=== PATIENT | female | born 1970 | race Caucasian/White ===

== ENCOUNTER 2016-11-30 18:39 | Emergency (ER) | payer SELFPAY ==
[2016-11-30 19:55] VITALS: O2SAT 98
--- NOTE | 2016-11-30 21:09 | ED.PDOC ---
History of Present Illness - General Chief Complaint: Respiratory Problem Stated Complaint: coughing up blood Time Seen by Provider: 11/30/16 21:02 Source: patient Exam Limitations: no limitations - History of Present Illness Initial Comments: 1 DAY HX OF HEMOPTYSIS. HAS BEEN ON CIPRO FOR BRONCHITIS Timing/Duration: other - 1 DAY Severity: mild Improving Factors: nothing Associated Symptoms: cough, fever/chills - TMAX 101 Allergies/Adverse Reactions: Allergies Penicillin G Adverse Reaction (Verified 11/30/16 19:46) Home Medications: Ambulatory Orders Doxycycline (Monohydrate) [Doxycycline Monohydrate] 100 mg PO BID #20 cap Estradiol 2 mg PO DAILY #30 tab 11/30/16 Review of Systems - Review of Systems Constitutional: States: fever. Denies: chills EENTM: Denies: eye pain, ear pain, throat pain Respiratory: States: cough, short of breath. Denies: wheezing Cardiology: Denies: chest pain, syncope Gastrointestinal/Abdominal: Denies: abdominal pain, nausea, vomiting Genitourinary: States: no symptoms reported Musculoskeletal: States: no symptoms reported Skin: States: no symptoms reported Neurological: States: no symptoms reported Endocrine: States: no symptoms reported Hematologic/Lymphatic: States: no symptoms reported Past Medical History (General) - Patient Medical History Hx Congestive Heart Failure: Yes - CHF IN THE HOSPITAL TWICE FOR THIS Hx Hypertension: Yes Surgical History: Hysterectomy - Vaccination History Hx Tetanus, Diphtheria Vaccination: No Hx Influenza Vaccination: No Hx Pneumococcal Vaccination: No Immunizations Up to Date: No - Social History Hx Tobacco Use: No Hx Alcohol Use: No Hx Substance Use: No Hx Substance Use Treatment: No Hx Depression: Yes - Female History Patient is a Female of Child Bearing Age (10 -59 yrs old): Yes Patient : No Family Medical History - Family History Mother Family History: Unknown Living Status: Unknown Physical Exam - Physical Exam General Appearance: Alert, No apparent distress Eye Exam: bilateral normal Ears, Nose, Throat: normal ENT inspection, normal pharynx Neck: supple Respiratory: lungs clear, no respiratory distress, other - SLIGHT BRONCHIAL BREATHSOUNDS RLL. Cardiovascular/Chest: regular rate, rhythm, no edema, no murmur Gastrointestinal/Abdominal: non tender, soft, no organomegaly Back Exam: normal inspection, no CVA tenderness Extremity: normal range of motion, normal inspection Neurologic: normal mood/affect Skin Exam: normal color Lymphatic: no adenopathy Departure - Departure Clinical Impression: Hemoptysis, Pneumonitis Time of Disposition: 22:08 Disposition: Discharge to Home or Self Care Condition: Good Departure Forms: ED Discharge - Pt. Copy, Patient Portal Self Enrollment Instructions: DI for Hemoptysis, Acute Bronchitis Referrals: Roland Mancera III, MD [Primary Care Provider] - 1-2 Weeks Prescriptions: Doxycycline (Monohydrate) [Doxycycline Monohydrate] 100 mg PO BID #20 cap Estradiol 2 mg PO DAILY #30 tab Home Medications: Ambulatory Orders Doxycycline (Monohydrate) [Doxycycline Monohydrate] 100 mg PO BID #20 cap Estradiol 2 mg PO DAILY #30 tab 11/30/16
[2016-11-30] MEDS ORDERED: cefTRIAXone SODIUM 1 GM VIAL IM ONE (22:01)
[2016-11-30] MEDS ORDERED: LIDOCAINE 1% 10 ML VIAL INJ ONE (22:14)
[2016-11-30 22:47] VITALS: BP 133/66; TEMP 99.1
--- NOTE | 2016-12-05 13:45 | RAD ---
EXAM DESCRIPTION: Chest,2 Views CLINICAL HISTORY: HEMOPTYSIS COMPARISON: September 13, 2011 FINDINGS: Cardiac silhouette is within normal limits. There is no focal parenchymal or pleural disease. There is no acute osseous process visualized. IMPRESSION: No evidence of acute cardiopulmonary disease. Electronically signed by: Alexi Sanchez MD 11/30/2016 9:47 PM TIPPING MACHINE OPERATOR AUTOMATIC
--- NOTE | 2016-12-10 00:16 | RAD ---
EXAM DESCRIPTION: Chest,2 Views CLINICAL HISTORY: HEMOPTYSIS COMPARISON: September 13, 2011 FINDINGS: Cardiac silhouette is within normal limits. There is no focal parenchymal or pleural disease. There is no acute osseous process visualized. IMPRESSION: No evidence of acute cardiopulmonary disease. Electronically signed by: Alexi Sanchez MD 11/30/2016 9:47 PM CASH APPLICATIONS ASSOCIATE
== END 2016-11-30 22:47 | disposition home or self-care (01) ==
LOC: ER 18:39
DX: J18.9 Pneumonia, unspecified organism (principal); R04.2 Hemoptysis; I11.0 Hypertensive heart disease with heart failure; I50.9 Heart failure, unspecified; Z88.0 Allergy status to penicillin
CPT/HCPCS: 71020; J0696

== ENCOUNTER 2016-12-16 01:00 | Inpatient (IN) | payer SELFPAY ==
[2016-12-16] MEDS ORDERED: MORPHINE SULFATE INJ 10 MG/ML VIAL ONE (01:24)
[2016-12-16] MEDS ORDERED: MORPHINE SULFATE INJ 10 MG/ML VIAL IV ONE (01:24)
[2016-12-16] MEDS ORDERED: NITROGLYCERIN 0.4 MG 25 EA TAB SL ONE (01:27)
[2016-12-16] MEDS ORDERED: ONDANSETRON INJ 4 MG/2 ML VIAL IV ONE (01:27)
[2016-12-16] MEDS ORDERED: ONDANSETRON INJ 4 MG/2 ML VIAL ONE (01:27)
[2016-12-16] MEDS ORDERED: ASPIRIN (CHEWABLE) 81 MG TAB PO ONE (01:28)
--- NOTE | 2016-12-16 01:37 | ED.PDOC ---
History of Present Illness - General Chief Complaint: Chest Pain/PA Stated Complaint: chest discomfort, anxoius Time Seen by Provider: 12/16/16 01:23 Source: patient, RN notes reviewed, Vital Signs reviewed Exam Limitations: no limitations - History of Present Illness Initial Comments: Patient is a 46 y/o female who comes into the ED with severe pain. She states it is in her chest, however she points to her epigastric area and says it radiates to her chest and her upper abdomen. Her abdomen is swollen to her. She has had nausea since yesterday and vomiting today. The pain is severe, crampy/sharp. She denies any fever. Timing/Duration: 24 hours Severity: severe Improving Factors: nothing Worsening Factors: movement Associated Symptoms: loss of appetite, nausea/vomiting Allergies/Adverse Reactions: Allergies Penicillin G Adverse Reaction (Verified 11/30/16 19:46) Home Medications: Ambulatory Orders Doxycycline (Monohydrate) [Doxycycline Monohydrate] 100 mg PO BID #20 cap Estradiol 2 mg PO DAILY #30 tab 11/30/16 Review of Systems - Review of Systems Constitutional: States: no symptoms reported. Denies: chills, fever EENTM: States: no symptoms reported Respiratory: States: short of breath Cardiology: States: chest pain Gastrointestinal/Abdominal: States: abdominal pain, nausea, vomiting Genitourinary: States: no symptoms reported Musculoskeletal: States: no symptoms reported Skin: States: no symptoms reported Neurological: States: no symptoms reported Endocrine: States: no symptoms reported Hematologic/Lymphatic: States: no symptoms reported All other Systems: Reviewed and Negative Past Medical History (General) - Patient Medical History Hx Stroke: No Hx Dementia: No Hx Asthma: No Hx Cardiac Disorders: No Hx Congestive Heart Failure: Yes - CHF IN THE HOSPITAL TWICE FOR THIS Hx Hypertension: Yes Hx Thyroid Disease: No Hx Diabetes: No Hx of HIV: No Hx MRSA: No Surgical History: Hysterectomy - Vaccination History Hx Tetanus, Diphtheria Vaccination: Yes Hx Influenza Vaccination: No Hx Pneumococcal Vaccination: No Immunizations Up to Date: Yes - Social History Hx Tobacco Use: No Hx Alcohol Use: No Hx Substance Use: No Hx Substance Use Treatment: No Hx Depression: Yes - Female History Patient : No Family Medical History - Family History Mother Family History: Unknown Living Status: Unknown Physical Exam - Physical Exam General Appearance: Agitated, Obvious distress Ears, Nose, Throat: hearing grossly normal, normal ENT inspection Respiratory: lungs clear, normal breath sounds, no respiratory distress, no accessory muscle use Cardiovascular/Chest: normal peripheral pulses, regular rate, rhythm, no edema, no gallop, no murmur Gastrointestinal/Abdominal: abnormal bowel sounds - decreased, distended, guarding, tenderness - primarily in the epigastric area Extremity: normal range of motion, no pedal edema, no calf tenderness Neurologic: alert, oriented x 3 Skin Exam: normal color, warm/dry Progress - Results/Orders Results/Orders: 12/16/16 12/16/16 12/16/16 01:16 01:18 02:00 Temperature 97.9 F Pulse Rate 96 H Pulse Rate [ 96 H 101 H Left radial] Pulse Rate [ 96 H 96 H right radial] Respiratory 22 22 16 Rate Blood Pressure 116/79 95/54 [Right Arm] O2 Sat by Pulse 95 87 L Oximetry 12/16/16 12/16/16 02:18 03:00 Temperature Pulse Rate Pulse Rate [ 86 Left radial] Pulse Rate [ right radial] Respiratory 16 Rate Blood Pressure 115/86 [Right Arm] O2 Sat by Pulse 98 96 Oximetry 12/16/16 01:23 IV Care:Saline Lock per Protoc QSHIFT Telemetry .ONCE Sodium Chloride 0.9% (Flush) [Saline Flush Syringe] 10 ml IV PRN PRN EKG Stat Pulse Ox Stat 12/16/16 02:27 Hold Metformin x 48Hrs [id number] Laboratory Results WBC 9.6 K/mm3 (4.8-10.8) 12/16/16 01:35 RBC 3.73 M/mm3 (4.20-5.40) L 12/16/16 01:35 Hgb 11.5 gm/dL (12.0-16.0) L 12/16/16 01:35 Hct 33.1 % (36.0-47.0) L 12/16/16 01:35 MCV 88.6 fl (81.0-99.0) 12/16/16 01:35 MCH 30.8 pg (27.0-31.0) 12/16/16 01:35 MCHC 34.7 g/dL (33.0-37.0) 12/16/16 01:35 RDW 12.6 % (11.5-14.5) 12/16/16 01:35 Plt Count 308 K/mm3 (130-400) 12/16/16 01:35 MPV 8.3 fl (7.40-10.4) 12/16/16 01:35 Absolute Neuts (auto) 5.20 K/uL (1.8-6.8) 12/16/16 01:35 Absolute Lymphs (auto) 3.30 K/uL (1.0-3.4) 12/16/16 01:35 Absolute Monos (auto) 0.70 K/uL (0.2-0.8) 12/16/16 01:35 Absolute Eos (auto) 0.30 K/uL (0.0-0.4) 12/16/16 01:35 Absolute Basos (auto) 0.10 K/uL (0.0-0.1) 12/16/16 01:35 Neutrophils % 54.0 % (42.0-78.0) 12/16/16 01:35 Lymphocytes % 34.6 % (20.0-50.0) 12/16/16 01:35 Monocytes % 6.9 % (2.0-9.0) 12/16/16 01:35 Eosinophils % 3.6 % (1.0-5.0) 12/16/16 01:35 Basophils % 0.9 % (0.0-2.0) 12/16/16 01:35 PT 11.9 SECONDS (9.4-12.5) 12/16/16 01:35 INR 1.050 12/16/16 01:35 PTT (SP) 37.0 SECONDS (25.1-36.5) H 12/16/16 01:35 D-Dimer, Quantitative < 230 ng/mL (0-230) 12/16/16 01:35 Sodium 137 mmol/L (135-145) 12/16/16 01:35 Potassium 4.7 mmol/L (3.6-5.0) 12/16/16 01:35 Chloride 99 mmol/L (101-111) L 12/16/16 01:35 Carbon Dioxide 30 mmol/L (21-31) 12/16/16 01:35 Anion Gap 12.7 (12-18) 12/16/16 01:35 BUN 9 mg/dL (7-18) 12/16/16 01:35 Creatinine 0.62 mg/dL (0.6-1.3) 12/16/16 01:35 BUN/Creatinine Ratio 14.5 (10-20) 12/16/16 01:35 Random Glucose 124 mg/dL (70-105) H 12/16/16 01:35 Serum Osmolality 273.9 mOsm/L (275-295) L 12/16/16 01:35 Calcium 8.9 mg/dL (8.4-10.2) 12/16/16 01:35 Magnesium 1.9 mg/dL (1.8-2.5) 12/16/16 01:35 Total Bilirubin < 0.2 mg/dL (0.2-1.0) L 12/16/16 01:35 Direct Bilirubin < 0.1 mg/dL (0-0.2) 12/16/16 01:35 Indirect Bilirubin 0.1 mg/dL (0.2-0.8) L 12/16/16 01:35 AST 24 IU/L (10-42) 12/16/16 01:35 ALT 23 IU/L (10-60) 12/16/16 01:35 Alkaline Phosphatase 69 IU/L (42-121) 12/16/16 01:35 Creatine Kinase 12 IU/L (26-140) L 12/16/16 01:35 CK-MB (CK-2) 0.7 ng/mL (0.0-4.4) 12/16/16 01:35 CK-MB (CK-2) % Not Reportable 12/16/16 01:35 Troponin I < 0.02 ng/mL (0.01-0.05) 12/16/16 01:35 B-Natriuretic Peptide 13.8 pg/ml (0-100) 12/16/16 01:35 Serum Total Protein 6.9 gm/dL (6.4-8.2) 12/16/16 01:35 Albumin 3.2 g/dl (3.2-5.5) 12/16/16 01:35 Lipase 46 U/L (22-51) 12/16/16 01:35 Gastric Fluid pH 5.0-7.0 12/16/16 02:40 Gastric Occult Blood Negative 12/16/16 02:40 - EKG/XRAY/CT EKG: Sinus, nonspecific ST T wave Chg Comments: NML axis, T wave inv. V1/V2, Prolonged QT, ABN EKG CT: ABD/Pelvis CT Ordered: Yes CT Interpretation Call Back: Yes - Early appe CT Interpretation Call Back Date: 12/16/16 CT Interpretation Call Back Time: 03:10 Departure - Departure Clinical Impression: Appendicitis Qualifiers: Appendicitis type: acute appendicitis Acute appendicitis type: with generalized peritonitis Qualifier Code: (K35.2) Acute appendicitis with generalized peritonitis Time of Disposition: 03:31 Disposition: Admit Patient Condition: Fair Home Medications: Ambulatory Orders Doxycycline (Monohydrate) [Doxycycline Monohydrate] 100 mg PO BID #20 cap Estradiol 2 mg PO DAILY #30 tab 11/30/16 Decision To Admit - Decistion To Admit Decision to Admit Reason: Admit from ER Decision to Admit Date: 12/16/16 Decision to Admit Time: 03:20
[2016-12-16] MEDS: SODIUM CHLORIDE 0.9% (FLUSH) 10 ML SYG IV PRN ×4 (01:41→22:03)
[2016-12-16] MEDS ORDERED: HYDROmorphone HCL INJ 2 MG/ML VIAL IV ONE (02:09)
[2016-12-16] MEDS ORDERED: PROMETHAZINE HCL INJ 25 MG in SODIUM CHLORIDE 0.9% 50ML 50 ML IVPB ONE (02:15)
[2016-12-16] MEDS ORDERED: PROMETHAZINE HCL INJ 25 MG/ML VIAL ONE ×3 (02:17→18:04)
[2016-12-16] MEDS ORDERED: SODIUM CHLORIDE 0.9% 50ML 50 ML ONE ×3 (02:17→18:04)
--- NOTE | 2016-12-16 03:13 | CT ---
EXAM DESCRIPTION: Abdomen/Pelvis w/Contrast 12/16/2016 3:07 AM INTERIOR BLOCK WIRER CLINICAL HISTORY: 46 years, Female, Abdominal pain COMPARISON: [None] TECHNIQUE: Following the administration of intravenous contrast, volumetric CT acquisition was performed through the abdomen and pelvis. Images in the axial and coronal planes were presented for interpretation FINDINGS: The visualized portions of the lung bases are clear. The cardiomediastinal structures are within normal limits. Within the upper abdomen, the liver and spleen are normal in size and morphology. There is diffuse fatty infiltration of the liver which is otherwise unremarkable. The gallbladder is normal in morphology. The intra/extrahepatic biliary tree is normal in appearance. The pancreas and adrenal glands are normal. The kidneys are normal in size bilaterally. The ureters are normal in course and caliber. The stomach and small intestines are within normal limits without evidence of bowel dilation or wall thickening. The distal appendix is dilated measuring up to 9 mm in diameter with fluid-filled lumen best seen on axial image 55 of sequence 2. There are minimal surrounding inflammatory changes. The proximal and mid appendix are normal in appearance. There is no evidence of perforation or abscess formation. The colon is stool filled and unremarkable. Within the pelvis, the bladder and rectum are normal. The uterus and ovaries are surgically absent. There is a ventral abdominal wall postoperative seroma abdomen below the level of the umbilicus in the distribution of a section scar. There are no pathologically enlarged inguinal, retroperitoneal, portacaval, or mesenteric lymph nodes. The soft tissue structures of the abdominal wall are normal. The visualized osseous structures are within normal limits for the patient's age. The abdominal aorta and its primary branches are normal in course and caliber. Limited evaluation of the venous structures demonstrates no gross abnormalities. IMPRESSION: 1. Early uncomplicated appendicitis of the distal appendix. 2. Fatty liver. 3. Infraumbilical ventral abdominal wall postoperative seroma from prior section. Note: Results discussed with Dr. Thomas of the Emergency Department at 03:12 on December 16, 2016. Electronically signed by: Elton Koo MD 12/16/2016 3:12 AM INTERIOR BLOCK WIRER
--- NOTE | 2016-12-16 03:35 | HP ---
HISTORY OF PRESENT ILLNESS: This 46 year-old white female was admitted to the hospital with worsening abdominal pain for the last 3 days. She was seen in the Emergency Room earlier today and was admitted to the hospital because of CT scan of the abdomen and pelvis showing evidence of an acute appendicitis. Its appearance was in the distal appendix. She presents in the Emergency Room with some chest discomfort pointing to her epigastrium with associated nausea and vomiting noted earlier. Of significance is that she has also had some blood in her stools over the last couple of weeks. She has had treatment with multiple antibiotics for an upper respiratory infection and has had loose stools in the past, and will need to be evaluated for Clostridium infection as well. She has had fainting when she was walking. Even when she is sitting and lying down she has been confused according to her companions. Question of hallucination has been noted. She has had 2 weeks of fever and chills getting better now. She is admitted to the hospital for surgical evaluation and followup as well as starting of antibiotic therapy in an attempt to keep an early distal appendix from getting worse. Please refer to chart. PAST MEDICAL HISTORY: 1. Recurring pneumonias that she received from exposure in small villages in the [facility], etc., through the years. 2. History of hypertension. 3. Asthma. 4. Significant fibromyalgia being followed by a neurologist in [place]. 5. History of gastrointestinal bleeding with rectal bleeding. 6. History of peripheral neuropathy on medications. PAST SURGICAL HISTORY: 1. Total hysterectomy. 2. Breast reduction surgery. 3. History of 3 para 1 with 2 miscarriages. CURRENT MEDICATIONS: Please refer to nurses' notes for a complete list of verified medications taken at home. ALLERGIES: PENICILLIN. FAMILY HISTORY: Positive for cancer, heart disease, strokes and diabetes. SOCIAL HISTORY: She has worked in [employer]. She has never smoked nor does she drink alcoholic beverages. REVIEW OF SYSTEMS: Some fever and chills in the recent 2 weeks. Weight gain has been noted. HEENT: No hearing or vision disturbances, but she has had some noticeable confusion spells with some hallucinations according to family friends and companions. LUNGS: Occasional shortness of breath and cough. CARDIOVASCULAR: No significant palpitations but she does have some chest discomfort in the lower chest and her epigastrium. ABDOMEN: Nausea and vomiting. Some blood in her stools have been noted. Decreased appetite, abdominal pain present. GENITOURINARY: No dysuria. EXTREMITIES: No significant edema. NEUROLOGIC: Some confusion spells and falling has been noted with some headaches. PHYSICAL EXAMINATION: VITAL SIGNS: Afebrile, pulse 96, blood pressure 107/72, pulse oximetry 95% on room air. Weight is 75.2 kilos. GENERAL: The patient is slightly slurring her speech after having some analgesics earlier after her hospital admission. She is able to otherwise contribute to the history fairly well with her sports recruiter also contributing as well. HEENT: Unremarkable. No nystagmus. NECK: Supple. CHEST: Lungs have some diminished breath sounds, otherwise clear. CARDIOVASCULAR: Heart tones are within normal limits with a normal rate. ABDOMEN: Diminished bowel tones. Special tenderness especially noted initially in the epigastrium with some radiation to the left upper quadrant. She also describes self palpation tenderness in the right lower quadrant. She states her abdomen appears to be distended. Even slight percussion tympani in the epigastrium results in some discomfort. Rebound tenderness positive when gently compressed on the left mid flank with no pain until fingers are removed and the patient states a sharp pain localized within the area of the compression which was in the left mid abdomen. No organomegaly evident. Negative psoas. EXTREMITIES: No significant pedal edema. NEUROLOGIC: No focal neurological deficits. The patient is fairly awake though somewhat slurred in her speech possibly from analgesic administration for pain. LABORATORY: White count 9,600 down to 7,800 with 55% neutrophils, platelets normal. INR of 10.5, D-dimer normal. Chemistry showed potassium 4.6, CO2 elevated at 33, BUN 7, creatinine 0.8, glucose 132. Bilirubin 0.3. Liver enzymes otherwise normal. Troponin zero. CK of 12. Beta natriuretic peptide 13.8, albumin 3.2, lipase 46. Gastric blood negative while pH ascitic. Abdominal/pelvic CT scan does reveal evidence of an acute appendicitis of the distal appendix with a fatty liver and a seroma noted in the infraumbilical region postoperative noted prior to section. ASSESSMENT: 1. Acute abdominal pain. 2. Radiographic evidence of a distal early appendicitis with inflammatory changes requiring surgical followup and vigorous treatment with antibiotics and gastrointestinal rest. 3. Chronic pain state with diagnosis of fibromyalgia being followed by the Neurology service with chronic opioid administration. 4. History of irritable bowel syndrome. 5. History of gastrointestinal bleed from the rectum with bright red bleeding. 6. History of recent upper respiratory infection with antibiotic course being given and to have followup of complications of possible Clostridium infection. 7. Evidence of fecal impaction possibly contributing to some of her discomfort. PLAN: The patient is seen in consultation with Dr. Everett, General Surgery. She will continue with gastrointestinal rest. Await ultrasound study later this afternoon to assist with ongoing evaluation. Continue with Flagyl and Levaquin , and closely observe with repeat followup suggested to continue. #[id number] [facility]
[2016-12-16] MEDS ORDERED: HYDROmorphone HCL INJ 2 MG/ML VIAL IV PRN (04:23)
[2016-12-16] MEDS ORDERED: PANTOPRAZOLE SODIUM IV 40 MG VIAL IV SCH (04:30)
[2016-12-16] MEDS ORDERED: SODIUM CHLORIDE 0.9% 10 ML VIAL ONE (04:35)
[2016-12-16] MEDS: DEX 5% W/NACL 0.9% 1000ML 1,000 ML IVS PRN ×2 (04:40→18:20)
[2016-12-16] MEDS: IV SET AND CAP CHANGE INJ INJ SCH (05:06)
[2016-12-16] MEDS: ONDANSETRON INJ 4 MG/2 ML VIAL IV PRN ×2 (07:43→15:14)
[2016-12-16] MEDS ORDERED: levoFLOXacin 500MG IV 100 ML IVPB ONE (10:10)
[2016-12-16] MEDS: HYDROmorphone HCL INJ 2 MG/ML VIAL IV PRN ×4 (10:15→22:04)
[2016-12-16] MEDS: levoFLOXacin 500MG IV 500 MG in PREMIX BAG 1 BAG IVPB SCH (10:16)
[2016-12-16] MEDS ORDERED: BISACODYL SUPPOSITORY 10 MG PR ONE (11:18)
[2016-12-16] MEDS ORDERED: PROMETHAZINE HCL INJ 25 MG in SODIUM CHLORIDE 0.9% 50ML 50 ML IVPB PRN (11:20)
--- NOTE | 2016-12-16 11:34 | RAD ---
PROCEDURE: Chest,2 Views CLINICAL HISTORY: abd pain INDICATION: Same as above COMPARISON: November 30, 2016 TECHNIQUE: PA and and lateral chest radiographs were obtained. FINDINGS: The lung borrero are well inflated. There are no discrete airspace infiltrates, pneumothoraces or pleural effusions. The pulmonary vascularity is normal The cardiomediastinal silhouette is unremarkable for patient's age and sex. IMPRESSION: There is no acute pleural-parenchymal process seen in the imaged lung borrero. Place of interpretation: Teleradiology. Electronically signed by: Lev Cornelius MD 12/16/2016 11:33 AM LUMITE INJECTOR
[2016-12-16] MEDS ORDERED: metroNIDAZOLE IV PREMIX 500MG 100 ML IVPB ONE ×2 (11:39→18:04)
[2016-12-16] MEDS: metroNIDAZOLE IV PREMIX 500MG 500 MG in PREMIX BAG 1 BAG IVPB SCH ×2 (12:28→18:28)
--- NOTE | 2016-12-16 14:59 | CONS ---
DATE OF CONSULTATION: 12/16/16 CHIEF COMPLAINT: Abdominal pain. HISTORY OF PRESENT ILLNESS: The patient is a 46 year-old female who was recovering from hospitalization for a pulmonary difficulty. She was on antibiotics for at least a week. She developed pain in her upper abdomen which radiated to her chest. There was vomiting times one yesterday. There has been no fever or chills. The patient is noted to be crampy in nature. She also states that she has recently had bloody stools that was unusual-smelling. The patient states that it hurts to move. PAST MEDICAL HISTORY: 1. Hypertension. 2. Possible congestive heart failure. 3. Pneumonia. 4. History of irritable bowel syndrome. 5. Fibromyalgia. 6. Depression. PAST SURGICAL HISTORY: 1. Hysterectomy. 2. Normal vaginal delivery. 3. Infectious process complicating an abdominal operation. CURRENT MEDICATIONS: 1. Doxycycline. 2. Estradiol. 3. Gabapentin. 4. Xanax. 5. Lasix. 6. Lorazepam. 7. Lisinopril. 8. Cymbalta. ALLERGIES: PENICILLIN. FAMILY HISTORY: Unremarkable. SOCIAL HISTORY: The patient is single but engaged. She does not smoke or use alcohol. She denies illicit drug use. PHYSICAL EXAMINATION: GENERAL: The patient is awake, alert, cooperative and in mild to moderate distress. HEENT: Sclera are nonicteric. Mucous membranes are moist. NECK: Without adenopathy. CHEST: She has equal breath sounds. ABDOMEN: Soft, distended, diffusely tender with referred tenderness to the right lower quadrant. PELVIC AND RECTAL: Examinations are deferred. EXTREMITIES: Without clubbing, cyanosis or edema. LABORATORY: This morning, white count 7.8 which is down from 9.6 early this morning, 55.7% neutrophils, platelet count 294,000, hemoglobin 11.6. Potassium 4.6, creatinine 0.80, sodium 138. Bilirubin and liver functions are all within normal limits. CK and CK-MB were all normal last night. Gastric occult blood was negative. Coagulation studies: PTT was mildly prolonged at 37, INR of 1.050. CT scan which was read as early appendicitis, uncomplicated fatty liver and an abdominal wall seroma from a previous operation which was years ago. The right colon is completely distended with stool. There is also stool in the transverse and left colon, nothing significant in the rectum. IMPRESSION: 1. Abdominal pain of uncertain etiology. 2. Irritable bowel syndrome with constipation. 3. Depression and anxiety. 4. Rule out Clostridium Difficile colitis. 5. Rule out uncomplicated appendicitis. PLAN: Continue analgesia and antiemetics. Will continue to keep her NPO and hydrate her intravenously. Will give her Dulcolax suppository and obtain an ultrasound of the appendix and gallbladder. Will follow the patient with you and agree with the Christy and Kaevh. #[id number] [facility]
[2016-12-16] MEDS: PROMETHAZINE HCL INJ 12.5 MG in SODIUM CHLORIDE 0.9% 50ML 50 ML IVPB PRN (18:11)
--- NOTE | 2016-12-16 19:42 | US ---
EXAM DESCRIPTION: Abdomen,Complete CLINICAL HISTORY: rt sided abdm pain r/o COMPARISON: None. FINDINGS: Visualized portions of the aorta, and pancreas are within normal limits. The echogenicity of the liver is increased compatible with fatty infiltration. Spleen is of homogeneous echotexture. The kidneys demonstrate no hydronephrosis. The right kidney measured 9.3 x 4.3 x 4.6 cm. The left kidney measures 8.8 x 6.3 x 5.9 cm. There are no gallstones, gallbladder wall thickening or pericholecystic fluid collection. The common bile duct measures 5.2 mm and is within normal limits. There is no free fluid in the abdomen. Images obtained of the right lower quadrant failed to visualize the appendix. IMPRESSION: No acute abnormalities. Images obtained of the right lower quadrant failed to visualize the appendix. Electronically signed by: Alexi Sanchez MD 12/16/2016 7:41 PM CYLINDER INSPECTOR AND TESTER
[2016-12-17] MEDS ORDERED: PROMETHAZINE HCL INJ 25 MG/ML VIAL ONE ×5 (00:26→18:27)
[2016-12-17] MEDS ORDERED: SODIUM CHLORIDE 0.9% 50ML 50 ML ONE ×4 (00:27→18:27)
[2016-12-17] MEDS: HYDROmorphone HCL INJ 2 MG/ML VIAL IV PRN ×8 (00:52→23:07)
[2016-12-17] MEDS: SODIUM CHLORIDE 0.9% (FLUSH) 10 ML SYG IV PRN ×6 (00:52→23:06)
[2016-12-17] MEDS: PROMETHAZINE HCL INJ 12.5 MG in SODIUM CHLORIDE 0.9% 50ML 50 ML IVPB PRN ×4 (00:53→18:38)
[2016-12-17] MEDS ORDERED: metroNIDAZOLE IV PREMIX 500MG 100 ML IVPB ONE ×3 (02:54→20:08)
[2016-12-17] MEDS: metroNIDAZOLE IV PREMIX 500MG 500 MG in PREMIX BAG 1 BAG IVPB SCH ×3 (03:00→20:12)
[2016-12-17] MEDS ORDERED: PANTOPRAZOLE SODIUM IV 40 MG VIAL ONE (05:27)
[2016-12-17] MEDS: PANTOPRAZOLE SODIUM IV 40 MG VIAL IV SCH (06:25)
--- NOTE | 2016-12-17 07:05 | RAD ---
EXAM DESCRIPTION: Abdomen Flat Upright CLINICAL HISTORY: 46 years Female, abd pain COMPARISON: None. FINDINGS: There is no free subdiaphragmatic gas or intra-abdominal air-fluid level. There are a few gas-filled small bowel loops in the left midabdomen which are not dilated. There is a small to moderate amount of stool and gas scattered throughout the colon. No suspicious intra-abdominal calcification or mass. No concerning bone lesion. IMPRESSION: Several nondilated gas-filled small bowel loops in the left midabdomen, nonspecific. The possibilities of focal ileus or enteritis should be considered. No obstruction, pneumoperitoneum or other acute intra-abdominal abnormality. Electronically signed by: Efrain Salmon MD 12/17/2016 7:05 AM CABLE STRANDER
[2016-12-17] MEDS: ONDANSETRON INJ 4 MG/2 ML VIAL IV PRN ×2 (07:43→11:58)
[2016-12-17] MEDS ORDERED: levoFLOXacin 500MG IV 100 ML IVPB ONE (09:28)
[2016-12-17] MEDS: levoFLOXacin 500MG IV 500 MG in PREMIX BAG 1 BAG IVPB SCH (10:05)
[2016-12-17] MEDS: DEX 5% W/NACL 0.9% 1000ML 1,000 ML IVS PRN (10:14)
[2016-12-17] MEDS ORDERED: MAGNESIUM HYDROXIDE 30 ML UD PO ONE (10:32)
[2016-12-17] MEDS ORDERED: MAGNESIUM HYDROXIDE 30 ML UD ONE (11:51)
[2016-12-17] MEDS: DULoxetine HCL 30 MG CAP PO SCH ×2 (11:52→20:48)
[2016-12-17] MEDS: ALPRAZolam 0.5 MG TAB PO SCH ×2 (11:52→20:45)
[2016-12-17] MEDS: SODIUM CHLORIDE 0.9% (FLUSH) 10 ML SYG IV SCH ×2 (11:52→20:43)
[2016-12-17] MEDS: ALBUTEROL SULFATE 2.5 MG/3 ML VIAL NEB SCH ×3 (13:45→20:18)
--- NOTE | 2016-12-17 14:03 | PN ---
DATE: 12/17/16 SUBJECTIVE: The patient in many ways appears to be better today. She is more conversant. She is still complaining of tightness in her breathing and will be started on some bronchodilators. She has not been active and is especially encouraged to increase activity today which will help bowel tone activity also to breathe deeply and to increase fluid intake. She is started on clear liquids. OBJECTIVE: VITAL SIGNS: Afebrile. Blood pressure 112/60. Pulse oximetry 95%. LUNGS: Some end-expiratory wheezing noted. She is not a smoker. HEART: Regular. ABDOMEN: Diminished bowel tones, though present. bottle blowing machine tender primarily in the epigastric region with some abdominal distention and tympany present. Dr. Everett continues to assist with ongoing conservative treatment. ASSESSMENT: 1. Acute abdominal pain. 2. Significant fecal stasis and fecal impaction possibly contributing to the pain. 3. Radiographic evidence on CT abdomen and pelvis showing distal appendicitis. We will continue with Flagyl and Levaquin and see if conservative treatment will be remedial in approaching the underlying pathology. 4. Chronic pain state with diagnosis of fibromyalgia being followed by the Neurology service with chronic opioid administration. 5. History of irritable bowel syndrome. 6. History of gastrointestinal bleed from the rectum with bright red bleeding in the past recently. 7. History of recent upper respiratory infection with antibiotic course with no evidence of Clostridium infection at this time. PLAN: Continue with clear liquids and encourage fluid intake. Await results of Milk of Magnesia and enemas for bowel movement effect. Increase activity level and observe closely. Recheck in the morning. Anticipate further outpatient therapy if stable as her diet is slowly advanced. #[id number] [facility]
[2016-12-17] MEDS ORDERED: CHLORHEXIDINE GLUCONATE 4 % 15 ML UD TOP ONE (17:07)
[2016-12-17] MEDS: GABAPENTIN 300 MG CAP PO SCH ×2 (18:00→20:44)
[2016-12-17] MEDS: SODIUM CHLORIDE 0.9% 10 ML VIAL IV PRN (20:42)
[2016-12-18] MEDS: HYDROmorphone HCL INJ 2 MG/ML VIAL IV PRN ×4 (02:36→08:05)
[2016-12-18] MEDS ORDERED: PROMETHAZINE HCL INJ 25 MG/ML VIAL ONE (02:38)
[2016-12-18] MEDS ORDERED: SODIUM CHLORIDE 0.9% 50ML 50 ML ONE (02:38)
[2016-12-18] MEDS: PROMETHAZINE HCL INJ 12.5 MG in SODIUM CHLORIDE 0.9% 50ML 50 ML IVPB PRN (02:50)
[2016-12-18] MEDS ORDERED: metroNIDAZOLE IV PREMIX 500MG 100 ML IVPB ONE ×3 (04:18→18:51)
[2016-12-18] MEDS: metroNIDAZOLE IV PREMIX 500MG 500 MG in PREMIX BAG 1 BAG IVPB SCH ×3 (04:19→18:53)
[2016-12-18] MEDS ORDERED: DEX 5% W/NACL 0.9% 1000ML 0 ML IVS ONE (05:20)
[2016-12-18] MEDS: SODIUM CHLORIDE 0.9% 10 ML VIAL IV PRN ×2 (05:31→06:06)
[2016-12-18] MEDS: SODIUM CHLORIDE 0.9% (FLUSH) 10 ML SYG IV PRN ×4 (05:32→21:39)
[2016-12-18] MEDS: PANTOPRAZOLE SODIUM IV 40 MG VIAL IV SCH (06:06)
[2016-12-18] MEDS ORDERED: levoFLOXacin 500MG IV 100 ML IVPB ONE (08:48)
[2016-12-18] MEDS: ALBUTEROL SULFATE 2.5 MG/3 ML VIAL NEB SCH ×4 (09:10→20:21)
[2016-12-18] MEDS ORDERED: MAGNESIUM HYDROXIDE 30 ML UD PO ONE (09:22)
[2016-12-18] MEDS: GABAPENTIN 300 MG CAP PO SCH ×3 (09:42→20:46)
[2016-12-18] MEDS: LISINOPRIL 5 MG TAB PO SCH (09:42)
[2016-12-18] MEDS: ALPRAZolam 0.5 MG TAB PO SCH ×2 (09:42→20:46)
[2016-12-18] MEDS: DULoxetine HCL 30 MG CAP PO SCH ×2 (09:42→20:46)
[2016-12-18] MEDS: levoFLOXacin 500MG IV 500 MG in PREMIX BAG 1 BAG IVPB SCH (09:43)
[2016-12-18] MEDS: SODIUM CHLORIDE 0.9% (FLUSH) 10 ML SYG IV SCH ×2 (09:43→20:47)
[2016-12-18] MEDS ORDERED: ONDANSETRON ODT 8 MG TAB ONE (10:50)
[2016-12-18] MEDS: HYDROcodone 7.5MG/APAP 325MG 1 EA TAB PO PRN ×2 (12:35→19:43)
--- NOTE | 2016-12-18 20:21 | PN ---
DATE: 12/18/16 SUBJECTIVE: The patient is subjectively having lots of pain. She has been very sedated with slurred speech and still is asking for significant parenteral and antipain medications on as frequent a basis as she possibly can. Her condition is discussed with Dr. Mancera who has seen her in the past, but he is no longer her primary care physician because of her unique behavior in seeking after pain medications. OBJECTIVE: Vitals are stable, afebrile. ABDOMEN: Still complaining of discomfort but most of the discomfort is not in the region of the appendix which is in the right lower quadrant. Bowel tones are present. HEART: Tones are regular. LUNGS: Clear. The patient is very tender to touch most parts of her body. She is complaining of pain all over body. LABORATORY: White count 9,500, hemoglobin is up to 11.1. Chemistry shows sodium 137, potassium 4.3, CO2 is 30, creatinine 0.6, glucose 116, calcium 8.1. Urine culture showed insignificant colony count and Clostridium Difficile is negative on stool exam. Blood cultures are negative. The patient is seen by Dr. Everett who wishes us to continue with increased diet as well as repeat Milk of Magnesia. The patient is encouraged repetitively during the day to get out of bed and walk, and generally she has refused. During the day, her significant analgesic parenteral medicines were withheld because of her insistence upon routine dosings, even though significantly obtunded and clinically apparently not in that significant of distress. The patient's condition was discussed with Dr. Mancera, her registered primary care provider. Dr. Mancera remembers the patient and stated that he no longer is her physician after 3 years ago when she was asked to seek other help from another clinic because of a significant problem with drug seeking behavior and manipulation. ASSESSMENT: 1. Acute abdominal pain. 2. Significant fecal stasis and impaction possibly contributing to symptomatology of constipation. 3. Chronic pain state with diagnosis of fibromyalgia on chronic opioid administration being followed by the neurology service. 4. History of irritable bowel syndrome. 5. History of gastrointestinal bleeding from the rectum with bright red bleeding in the past recently according to the patient. 6. History of recent upper respiratory infection with antibiotic course with no evidence of Clostridium infection at this time. PLAN: The patient has had gastric occult blood as well as stool occult blood, both are negative which is showing no evidence of bleeding as described by the patient. The patient will be increased with diet and again encouraged to increase activity level. She will be reevaluated by Surgery in the morning and as stable, will be able to be discharged home to have followup with one of our local clinics such as [facility]. Close observation necessary. #[id number] [facility]TD[facility]
[2016-12-18] MEDS: ONDANSETRON INJ 4 MG/2 ML VIAL IV PRN (21:39)
[2016-12-19] MEDS ORDERED: metroNIDAZOLE IV PREMIX 500MG 100 ML IVPB ONE (02:23)
[2016-12-19] MEDS: HYDROcodone 7.5MG/APAP 325MG 1 EA TAB PO PRN ×3 (02:24→12:20)
[2016-12-19] MEDS: SODIUM CHLORIDE 0.9% (FLUSH) 10 ML SYG IV PRN ×2 (03:13→05:57)
[2016-12-19] MEDS: ONDANSETRON INJ 4 MG/2 ML VIAL IV PRN ×2 (03:13→07:58)
[2016-12-19] MEDS: metroNIDAZOLE IV PREMIX 500MG 500 MG in PREMIX BAG 1 BAG IVPB SCH ×2 (03:14→13:31)
[2016-12-19] MEDS: IV SET AND CAP CHANGE INJ INJ SCH (03:15)
[2016-12-19] MEDS: PANTOPRAZOLE SODIUM IV 40 MG VIAL IV SCH (05:58)
[2016-12-19] MEDS ORDERED: MAGNESIUM HYDROXIDE 30 ML UD PO ONE (06:00)
[2016-12-19] MEDS ORDERED: levoFLOXacin 500MG IV 100 ML IVPB ONE (07:30)
[2016-12-19] MEDS: ALBUTEROL SULFATE 2.5 MG/3 ML VIAL NEB SCH ×2 (08:47→12:44)
[2016-12-19] MEDS: levoFLOXacin 500MG IV 500 MG in PREMIX BAG 1 BAG IVPB SCH (09:03)
[2016-12-19] MEDS: GABAPENTIN 300 MG CAP PO SCH (09:04)
[2016-12-19] MEDS: LISINOPRIL 5 MG TAB PO SCH (09:04)
[2016-12-19] MEDS: ALPRAZolam 0.5 MG TAB PO SCH (09:04)
[2016-12-19] MEDS: DULoxetine HCL 30 MG CAP PO SCH (09:04)
[2016-12-19] MEDS: SODIUM CHLORIDE 0.9% (FLUSH) 10 ML SYG IV SCH (09:05)
--- NOTE | 2016-12-19 10:06 | RAD ---
1 view abdomen. Indication: abd pain Comparison: December 17, 2016. Impression: Scattered air-fluid levels throughout what is believed to be the colon and can be seen with diarrheal state. No significant dilatation of the small bowel identified. No free air under the diaphragm. Electronically signed by: Jamey Mackey MD 12/19/2016 10:05 AM HEALTH CARE ADMINISTRATOR
[2016-12-19 10:32] VITALS: BP 112/77; TEMP 96.5
--- NOTE | 2016-12-19 13:32 | DS ---
DISCHARGE DIAGNOSIS: 1. Acute abdominal pain, showing clinical improvement. 2. Significant fecal stasis and impaction, contributing to her current abdominal discomfort and possibly aggravated by the chronic opioid pain medication usage. 3. Chronic pain state with diagnosis of chronic fibromyalgia, currently on chronic opioid administration, being followed and supplied by neurology service. 4. History of irritable bowel syndrome. 5. History of gastrointestinal bleeding in the past, yet with current stool guaiacs being negative. 6. History of recent upper respiratory infection with antibiotic course with no evidence of Clostridium infection at this time. HISTORY OF PRESENT ILLNESS: This 46-year-old, white female was admitted to the hospital from the Emergency Room because of worsening abdominal pain. She had some distention, some nausea. In the Emergency Room, she was found to have had some fever recently and had some antibiotics for an upper respiratory infection. She was admitted to the hospital because of the severity and magnitude of her current symptoms. CT of the abdomen and pelvis did show initial evidence of radiographically of possible distal appendicitis and for this reason, surgical consultation was obtained with Dr. Everett who assisted with her ongoing followup and management while in the hospital. LABORATORY: White count remained normal during her hospital stay, also with normal differential. Hemoglobin was stable at 11.1 at discharge. INR 1.05, D- dimer normal. Chemistries showed sugar between 116 and 200 range. Potassium 4.3 on discharge. BUN was low and creatinine 0.6. Calcium 8.1. Liver enzymes normal except total bilirubin did come up low. C-reactive protein slightly elevated at 5.4. Albumin was 3.2, down to 2.9. Lipase normal. Urinalysis was clean. Occult blood on gastric contents and stool occult blood was negative on one determination. Blood cultures, urine culture and C. difficile toxin exam were normal and negative. Abdominal x-ray at the time of discharge reveals nonspecific gas pattern, but no evidence of significant ileus or bowel obstruction noted. HOSPITAL COURSE: The patient was in a lot of discomfort requiring a lot of pain medications until the day before discharge when these medicine were cut back. She became much more alert, cooperative and communicative on less pain medicines. On the day of discharge, the patient was very much willing to continue in anticipation of outpatient followup and management. She is encouraged to be seen by a local clinic such as [facility] in addition to the neurology clinic that cares for her out of [facility]. PLAN: The patient is discharged home to have followup with [facility] later this week. Please refer to medication schedule. In addition to her usual medicines, she will be tried on Cipro 500 mg b.i.d. for 6 days, Zofran 4 mg q.6h. p.r.n. nausea, #12, and MiraLAX [id number] 17 grams with water daily in an effort to prevent significant obstipation. She is going to continue with a good, nutritious diet. Drink plenty of fluids. Avoid constipation. See the neurology clinic for assistance on pain management. Stay active. Return if not improving. #[id number] [facility]
[2016-12-19 15:31] VITALS: O2SAT 96
== END 2016-12-19 15:40 | disposition home or self-care (01) | DRG 392 ==
LOC: ER 01:00 → MS 03:34 → OBSVTOIN 03:34
PROVIDERS: ADMIT Emergency Medicine; ATTEND Emergency Medicine
PROC: BW21YZZ Computerized Tomography (CT Scan) of Abdomen and Pelvis using Other Contrast (ICD-10-PCS; principal; 2016-12-16)
DX: K59.03 Drug induced constipation (principal); K62.5 Hemorrhage of anus and rectum; G89.29 Other chronic pain; M79.7 Fibromyalgia; I10 Essential (primary) hypertension; F32.9 Major depressive disorder, single episode, unspecified; K58.9 Irritable bowel syndrome, unspecified; T40.2X5A Adverse effect of other opioids, initial encounter; J45.909 Unspecified asthma, uncomplicated; I11.0 Hypertensive heart disease with heart failure; I50.9 Heart failure, unspecified; R10.13 Epigastric pain; Z88.0 Allergy status to penicillin; Z79.899 Other long term (current) drug therapy; Z79.891 Long term (current) use of opiate analgesic; Y92.9 Unspecified place or not applicable

== ENCOUNTER → 2017-08-05 | Outpatient (CLI) | payer OTHER | END | disposition home or self-care (01) | LOC: LAB.O 12:53 | PROVIDERS: ATTEND Nurse Practitioner Family | DX: E03.9 Hypothyroidism, unspecified (principal); I10 Essential (primary) hypertension ==

== ENCOUNTER → 2017-09-17 | Outpatient (CLI) | payer OTHER ==
--- NOTE | 2017-09-20 10:52 | MAM ---
EXAM DESCRIPTION: 3D Screening BILATERAL : Digital Mammography. CLINICAL HISTORY: 47 years Female SCREENING. Soft tissue nodule right upper breast near the axilla. First-degree family members with breast cancer. Complete hysterectomy. Currently on HRT. Bilateral breast reduction COMPARISON: 2-D digital screening bilateral study 09/01/2014. No prior reports available. TECHNIQUE: Bilateral CC and MLO projection full-field images, 3-D tomosynthesis digital mammographic technique. Also bilateral synthesized CC/ MLO full-field images. CAD not utilized. FINDINGS: The breast parenchymal density pattern is: Heterogeneously dense breast tissue, which may obscure small masses. No nipple retraction minimal skin thickening inferior bilateral breasts, on MLO projections. Not well seen on the prior study. Bilateral architectural distortion typically associated with breast reduction surgery. Prominent skin folds on the left breast. Small left axillary lymph nodes. No focal, stellate mass or density, focal asymmetry , and no suspicious microcalcifications bilaterally. IMPRESSION: BI-RADS CATEGORY: 0 - INCOMPLETE- Need additional imaging evaluation. FOLLOW-UP: Recall for additional imaging: May be 3-D tomosynthesis left MLO full-field image and follow-up bilateral breast 3-D tomosynthesis LM full-field images. Written communication concerning the IMPRESSION and Follow-up, will be mailed to the patient and referring health care provider. Electronically signed by: Dilshad Mckay MD 09/20/2017 10:51 AM [facility]
== END ==
LOC: MAMMO 16:41
PROVIDERS: ATTEND Nurse Practitioner Family
DX: Z12.31 Encounter for screening mammogram for malignant neoplasm of breast (principal)
CPT/HCPCS: 77063; G0202

== ENCOUNTER 2017-11-11 18:03 | Emergency (ER) | payer OTHER ==
[2017-11-11 18:55] VITALS: O2SAT 97
--- NOTE | 2017-11-11 19:21 | ED.PDOC ---
History of Present Illness - General Chief Complaint: Abdominal Pain Stated Complaint: abdominal pain Time Seen by Provider: 11/11/17 19:07 Information Source: patient Exam Limitations: no limitations Additional Information: C/O ABDOMINAL PAIN AND BLOATING. HAS HAPPENED INTERMITTENTLY FOR SEVERAL MONTHS NOW. TOOK LINZESS X 2 WITHOUT RESULTS. - History of Present Illness Abdominal Pain Onset Location: RLQ, generalized abdomen Pain Radiation: flank Quality: moderate, sharpness Timing/Duration: days - 4 Worsening Factors: nothing Associated Symptoms: other - ABDOMINAL DISTENTION Review of Systems - Review of Systems Constitutional: States: chills EENTM: States: no symptoms reported Respiratory: States: no symptoms reported Cardiology: States: chest pain. Denies: palpitations, syncope Gastrointestinal/Abdominal: States: abdominal pain, diarrhea - BLOODY STOOL X 1 TODAY. Denies: vomiting Genitourinary: Denies: dysuria, hematuria Musculoskeletal: States: no symptoms reported Skin: States: no symptoms reported Neurological: States: no symptoms reported Endocrine: States: no symptoms reported Hematologic/Lymphatic: States: no symptoms reported Past Medical History (General) - Patient Medical History Hx Seizures: No Hx Stroke: No Hx Dementia: No Hx Asthma: No Hx of COPD: No Hx Cardiac Disorders: No Hx Congestive Heart Failure: No Hx Pacemaker: No Hx Hypertension: Yes Hx Thyroid Disease: No Hx Diabetes: No Hx of HIV: No Hx MRSA: No Surgical History: other - HYST, BREAST REDUCTION, ABDOMINAL ABSCESS DRAINED, ABDOMINOPLASTY - Vaccination History Hx Tetanus, Diphtheria Vaccination: Yes Hx Influenza Vaccination: No Hx Pneumococcal Vaccination: No - Social History Hx Tobacco Use: No Hx Alcohol Use: No Hx Substance Use: No Hx Substance Use Treatment: No Hx Depression: No Hx Physical Abuse: No Hx Emotional Abuse: No - Female History Patient is a Female of Child Bearing Age (10 -59 yrs old): No Patient : No Family Medical History - Family History Mother Family History: Unknown Living Status: Unknown Physical Exam - Physical Exam General Appearance: Alert, No apparent distress Eyes, Ears, Nose, Throat Exam: PERRL/EOMI, normal ENT inspection Neck: non-tender, full range of motion, supple Respiratory: lungs clear, normal breath sounds Cardiovascular/Chest: regular rate, rhythm, no murmur Gastrointestinal/Abdominal: soft, no organomegaly, other - BS DIMINISHED, MILD RLQ TTP, NO G/R, MINIMAL TO NO DISTENTION Back Exam: normal inspection, no CVA tenderness Extremity: normal range of motion, non-tender, normal inspection Neurologic: alert, normal mood/affect Skin Exam: normal color Lymphatic: no adenopathy Progress - Progress Progress: 11/11/17 21:15 STILL C/O PAIN, ABN CT WITH LEUKOCYTOSIS, WILL GET CT ABDOMEN 11/12/17 00:05 STILL C/O PAIN. RE-EXAM NON DESCRIPT FULLNESS INFRAUMBILICAL BUT NOT PARTICULARLY TTP, NO INDURATION, NO FLUCTUENCE. DID HAVE DIARRHEA STOOL HERE, NOT MUCH BLOOD IN PHOTO BUT WILL SEND FOR STOOL STUDIES. HAVE D/W DR MCCANN AT [facility], ACCEPTS PT IN TRANSFER FOR FURTHER EVALUATION/[place] - EKG/XRAY/CT XRAY: abdomen - ESTHELA, NO FREE AIR, OCC AIR FLUID LEVELS IN RLQ Departure - Departure Clinical Impression: Abdominal wall abscess Abdominal pain Qualifiers: Abdominal location: lower abdomen, unspecified Qualified Code(s): R10.30 - Lower abdominal pain, unspecified Diarrhea Qualifiers: Diarrhea type: unspecified type Qualified Code(s): R19.7 - Diarrhea, unspecified Hypertension Qualifiers: Hypertension type: essential hypertension Qualified Code(s): I10 - Essential ( primary) hypertension Time of Disposition: 00:42 - DR MCCANN HAS ACCEPTED PT IN TRANSFER Disposition: Transfer to Hospital Condition: Good Departure Forms: ED Discharge - Pt. Copy, Patient Portal Self Enrollment Instructions: DI for Abdominal Pain-Adult Referrals: SINAI BARAHONA IV, THERMOFORMING MACHINE OPERATOR [Primary Care Provider] - 1-2 Weeks Home Medications: Ambulatory Orders Estradiol 2 mg PO DAILY #30 tab 11/30/16 Alprazolam [Xanax] 1 mg PO BID 12/16/16 Duloxetine HCl [Cymbalta] 60 mg PO BID 12/16/16 Gabapentin 300 mg PO TID 12/16/16 Lisinopril 5 mg PO DAILY 12/16/16 HYDROcodone 10MG/APAP 325MG [Zoe 10/325] 1 ea PO Q6HR PRN 12/18/16 Hyoscyamine Sulfate ER [Levbid] 0.125 mg PO TID 12/18/16 Ciprofloxacin [Cipro] 500 mg PO BID #12 tab 12/19/16 Ondansetron Tab [Zofran Tab] 4 mg PO Q6H PRN #12 tab 12/19/16 Polyethylene Glycol 3350 [Miralax] 17 gm PO QAM #30 pckt 12/19/16
[2017-11-11] MEDS ORDERED: KETOROLAC TROMETHAMINE INJ 30 MG/ML VIAL IV ONE (19:26)
[2017-11-11] MEDS ORDERED: SODIUM CHLORIDE 0.9% 1000ML 1,000 ML IVS ONE (19:26)
--- NOTE | 2017-11-11 21:23 | RAD ---
Examination: XR ABDOMEN 2 VIEWS SUPINE ERECT dated 11/11/2017 7:26 PM MIXING MACHINE ATTENDANT History: ABDOMINAL PAIN Comparison: 12/19/2016 Technique: Frontal view of the abdomen and pelvis FINDINGS AND IMPRESSION: No free air. Nonobstructive bowel gas pattern. No suspicious calcifications to suggest renal stones. Electronically signed by: Jake Ayala MD 11/11/2017 9:22 PM MIXING MACHINE ATTENDANT
--- NOTE | 2017-11-11 21:24 | RAD ---
Examination: XR CHEST 1 VIEW dated 11/11/2017 7:26 PM BOOT TURNER History: ABDOMINAL PAIN Comparison: 12/16/2016 Technique: Frontal view of the chest Findings: The lungs are clear bilaterally. No pneumothorax or pleural effusion. The cardiomediastinal silhouette is within normal limits. Impression: No acute disease. Electronically signed by: Jake Ayala MD 11/11/2017 9:23 PM BOOT TURNER
[2017-11-11] MEDS ORDERED: fentaNYL CITRATE INJ 50 MCG/ML AMP IV ONE (21:28)
[2017-11-11] MEDS ORDERED: PROMETHAZINE HCL INJ 25 MG in SODIUM CHLORIDE 0.9% 50ML 50 ML IVPB ONE (21:29)
[2017-11-11] MEDS ORDERED: SODIUM CHLORIDE 0.9% 50ML 50 ML ONE (21:47)
[2017-11-11] MEDS ORDERED: PROMETHAZINE HCL INJ 25 MG/ML VIAL ONE (21:47)
--- NOTE | 2017-11-11 23:27 | CT ---
EXAM: CT abdomen with contrast. INDICATION: Abdominal pain, acute. TECHNIQUE: Contiguous axial CT images of the abdomen and pelvis. Intravenous contrast: Absent. Oral contrast: Present. DLP 559 mGy-cm. This exam was performed according to our departmental dose-optimization program, which includes automated exposure control, adjustment of the mA and/or kV according to patient size and/or use of iterative reconstruction technique. COMPARISON: None. FINDINGS: Lower chest: Partially imaged. Lung bases: Unremarkable. Cardiac apex: Unremarkable. Solid abdominal viscera: Liver: Hypodense Gallbladder: Unremarkable. Pancreas: Unremarkable. Spleen: Unremarkable. Adrenal glands: Unremarkable. Right kidney: No hydronephrosis. Left kidney: No hydronephrosis. Abdominal aorta: Unremarkable. Peritoneal: Free fluid: None. Free air: None. Other: No pathologic sized lymph nodes in the upper abdomen. There is a hypodense collection which is partially visualized within the subcutaneous soft tissues just below the level of the umbilicus which measures up to 5.3 x 1.4 cm. Bowel: Stomach: Unremarkable. Small bowel: There is circumferential thickening particularly along the left upper quadrant. Appendix: Unremarkable. Colon: Visualized portions are unremarkable Bones: Unremarkable. IMPRESSION: Hypodense collection within the ventral subcutaneous soft tissues just below the level of the umbilicus, which may represent an abscess, hematoma, or seroma. Circumferential thickening of the small bowel, which is nonspecific but likely related to an enteritis. Fatty liver. Electronically signed by: Seth Ding MD 11/11/2017 11:26 PM [facility] Workstation: [id number]
[2017-11-12] MEDS ORDERED: MEROPENEM 1 GM in SODIUM CHL 0.9% 50ML MIN-BAG+ 50 ML IVPB ONE (00:29)
[2017-11-12] MEDS ORDERED: MEROPENEM 500 MG VIAL IVPB ONE (00:38)
[2017-11-12] MEDS ORDERED: SODIUM CHLORIDE 0.9% 100ML 100 ML IVPB ONE (00:39)
[2017-11-12 00:49] VITALS: BP 123/81; TEMP 98
[2017-11-12] MEDS ORDERED: fentaNYL CITRATE INJ 50 MCG/ML AMP IV ONE (01:01)
[2017-11-12] MEDS: ONDANSETRON INJ 4 MG/2 ML VIAL IV ONE ×2 (01:18→01:22)
[2017-11-12] MEDS ORDERED: PROMETHAZINE HCL INJ 12.5 MG in SODIUM CHLORIDE 0.9% 50ML 50 ML IVPB ONE (01:22)
[2017-11-12] MEDS ORDERED: PROMETHAZINE HCL INJ 25 MG/ML VIAL ONE (01:23)
[2017-11-12] MEDS ORDERED: SODIUM CHLORIDE 0.9% 50ML 50 ML ONE (01:23)
== END 2017-11-12 01:25 | disposition short-term general hospital (02) ==
LOC: ER 18:03
DX: L02.211 Cutaneous abscess of abdominal wall (principal); R19.7 Diarrhea, unspecified; I10 Essential (primary) hypertension
CPT/HCPCS: 36415; 71045; 74019; 74160; 80053; 81001; 82150; 82270; 83630; 83690; 85025; 87045; 87046; 87324; 87449; A4216; J1885; J2185; J2550; J3010; J7030; J7050

== ENCOUNTER → 2017-12-11 | Outpatient (CLI) | payer OTHER | LOC: LAB.O 15:15 | PROVIDERS: ATTEND Nurse Practitioner Family | DX: R30.0 Dysuria (principal) ==

== ENCOUNTER → 2017-12-17 | Outpatient (CLI) | payer OTHER | LOC: RESP 14:15 | PROVIDERS: ATTEND Family Medicine | DX: R00.0 Tachycardia, unspecified (principal) ==

== ENCOUNTER 2018-04-13 03:00 | Emergency (ER) | payer OTHER ==
--- NOTE | 2018-04-13 03:55 | ED.PDOC ---
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 SHE VOICES THAT YESTERDAY SHE NOTED SOME PUS COMIN FROM HER UMBILICUS AND HAS BEEN RUNNING INTERMITTENT FEVER. SHE ALSO VOICES THAT SHE SEES DR. CENTENO IN [place] AND ALSO GOES TO [facility] WHERE ON SEVERAL OCCASIONS HAVE DRAINED SOME PURULENT MATERIAL FROM INTRA-ABDOMINAL ABSCESS. Abdominal Pain Onset Location: generalized abdomen Pain Radiation: no radiation Quality: moderate Timing/Duration: 24 hours Improving Factors: nothing Worsening Factors: nothing Review of Systems - Review of Systems Constitutional: States: no symptoms reported EENTM: States: no symptoms reported Respiratory: States: no symptoms reported Cardiology: States: no symptoms reported Gastrointestinal/Abdominal: States: no symptoms reported Genitourinary: States: no symptoms reported Musculoskeletal: States: no symptoms reported Skin: States: no symptoms reported Neurological: States: no symptoms reported Endocrine: States: no symptoms reported Hematologic/Lymphatic: States: no symptoms reported Past Medical History (General) - Patient Medical History Hx Seizures: No Hx Stroke: No Hx Dementia: No Hx Asthma: No Hx of COPD: No Hx Cardiac Disorders: No Hx Congestive Heart Failure: No Hx Pacemaker: No Hx Hypertension: Yes Hx Thyroid Disease: No Hx Diabetes: No Hx of HIV: No Hx MRSA: No - Vaccination History Hx Tetanus, Diphtheria Vaccination: Yes Hx Influenza Vaccination: No Hx Pneumococcal Vaccination: No - Social History Hx Tobacco Use: No Hx Alcohol Use: No Hx Substance Use: No Hx Substance Use Treatment: No Hx Depression: No Hx Physical Abuse: No Hx Emotional Abuse: No - Female History Patient : No Family Medical History - Family History Mother Family History: Unknown Living Status: Unknown Physical Exam - Physical Exam General Appearance: Alert, Anxious, Well Developed, Well Groomed, Well Hydrated Eyes, Ears, Nose, Throat Exam: PERRL/EOMI, normal ENT inspection Neck: non-tender, full range of motion, supple Respiratory: chest non-tender, lungs clear, normal breath sounds, no respiratory distress, no accessory muscle use Cardiovascular/Chest: normal peripheral pulses, regular rate, rhythm, no edema, no gallop, no JVD, no murmur Gastrointestinal/Abdominal: normal bowel sounds, soft, no organomegaly, no pulsatile mass, distended, tenderness Rectal Exam: deferred Back Exam: normal inspection Extremity: normal range of motion Departure - Departure Clinical Impression: Abdominal wall abscess Time of Disposition: 06:53 Disposition: Discharge to Home or Self Care Condition: Good Departure Forms: ED Discharge - Pt. Copy, Patient Portal Self Enrollment Instructions: DI for Abdominal Pain-Adult Referrals: SINAI BARAHONA IV, FISH BAIT PROCESSING SUPERVISOR [Primary Care Provider] - 1-2 Weeks Home Medications: Ambulatory Orders Estradiol 2 mg PO DAILY #30 tab 11/30/16 Alprazolam [Xanax] 1 mg PO BID 12/16/16 Duloxetine HCl [Cymbalta] 60 mg PO BID 12/16/16 Gabapentin 300 mg PO TID 12/16/16 Lisinopril 5 mg PO DAILY 12/16/16 HYDROcodone 10MG/APAP 325MG [Nicolaus 10/325] 1 ea PO Q6HR PRN 12/18/16 Hyoscyamine Sulfate ER [Levbid] 0.125 mg PO TID 12/18/16 Ciprofloxacin [Cipro] 500 mg PO BID #12 tab 12/19/16 Ondansetron Tab [Zofran Tab] 4 mg PO Q6H PRN #12 tab 12/19/16 Polyethylene Glycol 3350 [Miralax] 17 gm PO QAM #30 pckt 12/19/16 Transfer to Outside Facility - Transfer Information Accepting Provider:: DR. MARTINEZ Accepting Facility: [facility] Reason for Transfer: required specialist not available
--- NOTE | 2018-04-13 05:08 | CT ---
EXAM DESCRIPTION: CT ABDOMEN AND PELVIS WITH CONTRAST CLINICAL HISTORY: ABDOMINAL PAIN COMPARISON: 01/09/2018 TECHNIQUE: CT of the abdomen and pelvis performed following IV administration of iodinated contrast DLP: 714 mGycm FINDINGS: Lung Bases: The visualized lung bases are clear. Bones: No destructive bone lesions identified. Degenerative change of the spine. Abdomen: Liver: The liver has normal size and decreased density. No intrahepatic mass or biliary dilatation. Gallbladder: No calcified gallstones. Spleen, Pancreas, and Adrenal Glands: The spleen, pancreas, and adrenal glands are unremarkable. Kidneys: The kidneys have normal size and contour without evidence of solid mass or hydronephrosis. Vasculature: Aortoiliac atherosclerosis. IVC is unremarkable. The portal vein is patent. The proximal visceral and renal arteries are patent. Stomach: The stomach and duodenum have normal course. Other: No free intraperitoneal air. Fluid collection in the anterior abdominal wall subcutaneous soft tissues measuring 6.2 x 2.1 x 1.0 cm relatively stable in configuration. Pelvis: Bladder: Urinary bladder is unremarkable. Bowel: No dilated loops of large or small bowel. Appendix: Normal appendix. Pelvis: Uterus is not enlarged. IMPRESSION: 1. Redemonstrated fluid collection anterior abdominal wall subcutaneous soft tissues measuring 6.2 cm in greatest dimension. This is relatively stable in configuration. This may represent abscess, hematoma, or seroma. 2. Hepatic steatosis. This exam was performed according to our departmental dose-optimization program, which includes automated exposure control, adjustment of the mA and/or kV according to patient size and/or use of iterative reconstruction technique. Electronically signed by: Cl Lazo 04/13/2018 5:07 AM CDT
[2018-04-13] MEDS ORDERED: PROMETHAZINE HCL INJ 25 MG/ML VIAL IM PRN (06:43)
[2018-04-13] MEDS ORDERED: SODIUM CHLORIDE 0.9% 50ML 50 ML ONE (06:48)
[2018-04-13] MEDS ORDERED: PROMETHAZINE HCL INJ 25 MG/ML VIAL ONE (06:48)
[2018-04-13] MEDS: fentaNYL CITRATE INJ 50 MCG/ML AMP IV ONE (07:00)
[2018-04-13] MEDS: PROMETHAZINE HCL INJ 12.5 MG in SODIUM CHLORIDE 0.9% 50ML 50 ML IVPB ONE (07:00)
[2018-04-13 07:05] VITALS: O2SAT 94
[2018-04-13] MEDS ORDERED: KETOROLAC TROMETHAMINE INJ 30 MG/ML VIAL IV ONE (07:50)
[2018-04-13 08:41] VITALS: BP 126/74; TEMP 97.8
== END 2018-04-13 08:46 | disposition short-term general hospital (02) ==
LOC: ER 03:00
DX: L02.211 Cutaneous abscess of abdominal wall (principal); I10 Essential (primary) hypertension
CPT/HCPCS: 74177; 80053; 81001; 83690; 85025; A4216; J2550; J3010

== ENCOUNTER 2019-01-28 02:52 | Inpatient (IN) | payer OTHER ==
--- NOTE | 2019-01-28 03:39 | RAD ---
Abdomen two view on 01/28/2019 CLINICAL INDICATION: Abdominal distention COMPARISON: X-ray from 11/11/[address] from 04/13/2018 FINDINGS: There is no free air. There is mild elevation of the right hemidiaphragm. Bowel gas pattern is unremarkable. No increased stool to suggest constipation is noted. There is a stable calcification to the left of the L5 vertebral body consistent with phlebolith. No other abnormal calcification or mass effect is noted. No acute bony abnormality is noted. IMPRESSION: Nonspecific abdomen. Electronically signed by: Jarret Uriostegui 01/28/2019 3:36 AM CDT
--- NOTE | 2019-01-28 03:42 | ED.PDOC ---
History of Present Illness - General Information Source: patient Exam Limitations: no limitations - History of Present Illness Initial Comments: Dimitri Brewer,48 y/o female came to ER with abdominal distention and generalized non radiating sharp abdominal pain 2 hours ago.Had been feeling nauseated the whole day and had vomited x1 tonight.Had also been bitten by dog yesterday on her left arm -pitbull with multiple laceration left arm.Incident reported to Animal Control by patient.Stated animal is from the neighborhood. Abdominal Pain Onset Location: generalized abdomen Pain Radiation: no radiation Quality: sharpness Timing/Duration: 1-3 hours Improving Factors: rest Worsening Factors: movement Associated Symptoms: nausea/vomiting <Colton Ulloa - Last Filed: 01/28/19 09:05> <Steve Clemons - Last Filed: 01/28/19 14:19> - General Chief Complaint: Abdominal Pain Stated Complaint: abd pain Time Seen by Provider: 01/28/19 03:11 Review of Systems - Review of Systems Constitutional: States: no symptoms reported EENTM: States: no symptoms reported Respiratory: States: no symptoms reported Cardiology: States: no symptoms reported Gastrointestinal/Abdominal: States: see HPI Genitourinary: States: no symptoms reported Musculoskeletal: States: no symptoms reported Skin: States: other - skin laceration-dog bite left forearm see hpi <Colton Ulloa - Last Filed: 01/28/19 09:05> Past Medical History (General) - Patient Medical History Hx Seizures: No Hx Stroke: No Hx Dementia: No Hx Asthma: No Hx of COPD: No Hx Cardiac Disorders: No Hx Congestive Heart Failure: No Hx Pacemaker: No Hx Hypertension: Yes Hx Thyroid Disease: No Hx Diabetes: No Hx Cancer: No Hx of HIV: No Hx MRSA: No Hx Other PMH: Yes - Fibromyalgia,Rheumatoid Arhtritis Surgical History: other - hysterectomy,breast reduction;had drainage of intraabdominal abscess done by interventional radiologist in [place] last year - Vaccination History Hx Tetanus, Diphtheria Vaccination: Yes Hx Influenza Vaccination: No Hx Pneumococcal Vaccination: No - Social History Hx Tobacco Use: No Hx Alcohol Use: No Hx Substance Use: No Hx Substance Use Treatment: No Hx Depression: No Hx Physical Abuse: No Hx Emotional Abuse: No - Female History Patient : No <Colton Ulloa - Last Filed: 01/28/19 09:05> Family Medical History - Family History Mother Family History: Unknown Living Status: Unknown Hx Family Cancer: Yes - dad-ureter,Rheumatoid Arthritis <ArtemioColton R - Last Filed: 01/28/19 09:05> Physical Exam - Physical Exam General Appearance: Alert, Anxious, No apparent distress Eyes, Ears, Nose, Throat Exam: normal ENT inspection Neck: non-tender, supple Respiratory: chest non-tender, lungs clear, normal breath sounds, no respiratory distress Cardiovascular/Chest: normal peripheral pulses, regular rate, rhythm, no murmur Peripheral Pulses: No deficit Gastrointestinal/Abdominal: distended, tenderness - all over;no preitoneal s igns, other - tense Back Exam: no CVA tenderness Extremity: no pedal edema, no calf tenderness Neurologic: alert, oriented x 3 Skin Exam: normal color, warm/dry, other - multiple skin laceration with no erythema left forearm Lymphatic: no adenopathy <Colton Ulloa R - Last Filed: 01/28/19 09:05> Progress - Progress Progress: 01/28/19 03:59 Vital Signs - 8 hr 01/28/19 01/28/19 03:02 03:50 Temperature 97.6 F Pulse Rate [ 117 H 102 H Right] Respiratory 22 18 Rate Blood Pressure 181/117 123/92 [Left Arm] O2 Sat by Pulse 97 99 Oximetry 01/28/19 06:13 Discuss case with and referred patient for further evluation of finding on CT abd/p-thickened gallbladder wall and mildy enhancing gallbladder - Results/Orders Results/Orders: 01/28/19 02:58 IV Care:Saline Lock per Protoc QSHIFT URINALYSIS Stat Laboratory Results - last 24 hr 01/28/19 01/28/19 01/28/19 03:00 03:00 03:00 WBC 11.2 H RBC 4.68 Hgb 14.0 Hct 42.0 MCV 89.7 MCH 29.9 MCHC 33.4 RDW 13.7 Plt Count 361 MPV 8.4 Absolute Neuts (auto) 7.10 H Absolute Lymphs (auto) 3.20 Absolute Monos (auto) 0.60 Absolute Eos (auto) 0.20 Absolute Basos (auto) 0.10 Neutrophils % 63.8 Lymphocytes % 28.4 Monocytes % 5.4 Eosinophils % 1.5 Basophils % 0.9 Sodium 137 Potassium 4.1 Chloride 105 Carbon Dioxide 22 Anion Gap 14.1 BUN 12 Creatinine 0.65 BUN/Creatinine Ratio 18.5 Random Glucose 104 Serum Osmolality 273.9 L Calcium 8.9 Amylase 46 Lipase 50 TSH Serum HCG, Qual 01/28/19 01/28/19 03:00 03:00 WBC RBC Hgb Hct MCV MCH MCHC RDW Plt Count MPV Absolute Neuts (auto) Absolute Lymphs (auto) Absolute Monos (auto) Absolute Eos (auto) Absolute Basos (auto) Neutrophils % Lymphocytes % Monocytes % Eosinophils % Basophils % Sodium Potassium Chloride Carbon Dioxide Anion Gap BUN Creatinine BUN/Creatinine Ratio Random Glucose Serum Osmolality Calcium Amylase Lipase TSH 2.59 Serum HCG, Qual Negative - EKG/XRAY/CT XRAY: abdomen - non specific abdomen Xray Comments: abdominal sono-gallstone with cholecystitis CT Ordered: Yes - Abd/p:fatty liver thickened gallbladder wall,fluid filled GI tract-gastroen <Colton Ulloa R - Last Filed: 01/28/19 09:05> - Progress Progress: 01/28/19 14:16 DR. LOVING REASSESSED THE PATIENT AFTER THE LIVER FUNCTION TEST WERE RESULTED. I HAVE DISCUSSED THE CASE WITH MARKUS MATHEWS AND WILL ADMIT TO THE HOSPITAL FOR IV ANTIBIOTICS. - Results/Orders Results/Orders: THE PATIENT HAS HAD A CT AND A GB SONO. THEY ARE REPORTED. DR. LOVING HAS BEEN CONSULTED AND HE HAS BEEN IN TOUCH WITH DR. RIOS (SURGEON FROM ) LFT'S ARE PENDING. ONCE RESULTED A DECISION WILL BE DONE TO WHERE THE PATIENT NEEDS TO GO FOR TREATMENT REASSESSED THE PATIENT: SHE VOICES THAT SHE WAS BITTEN BY A NEIGHBOR'S DOG. INCIDENT REPORTED TO ANIMAL CONTROL AND THE DOG IS UP TO DATE ON VACCINES, SO IS THE PATIENT. SHE DOES HAVE PUNCTURE WOUNDS TO THE LEFT ARM. SHE WASHED IT COPIOUSLY WITH WATER. THE WOUND DOESNT LOOK INFECTED AT THIS TIME. WILL CONSIDER COVERING HER WITH ANTIBIOTICS. . <Steve Clemons - Last Filed: 01/28/19 14:19> Departure <Colton Ulloa R - Last Filed: 01/28/19 09:05> <Steve Clemons - Last Filed: 01/28/19 14:19> - Departure Clinical Impression: Dog bite of extremity, Fibromyalgia Cholecystitis with cholelithiasis Qualifiers: Cholelithiasis location: gallbladder Cholecystitis acuity: acute Biliary obstruction: without biliary obstruction Qualified Code(s): K80.00 - Calculus of gallbladder with acute cholecystitis without obstruction Disposition: Admit Patient Condition: Good Departure Forms: ED Discharge - Pt. Copy, Patient Portal Self Enrollment Home Medications: Ambulatory Orders Estradiol 2 mg PO DAILY #30 tab 11/30/16 Duloxetine HCl [Cymbalta] 60 mg PO BID 12/16/16 HYDROcodone 10MG/APAP 325MG [Shickley 10/325] 1 ea PO Q6HR PRN 12/18/16 Hyoscyamine Sulfate ER [Levbid] 0.125 mg PO TID 12/18/16 Acetamin W/Cod #3 Tab [Tylenol w/CODEINE #3] 1 ea PO 01/28/19 Amphetamine-Dextroamphetamine [Adderall] 1 tab PO TID 01/28/19 Cyanocobalamin [B-12 Compliance Injection] 1,000 mcg IJ 01/28/19 Diazepam 2 mg PO 01/28/19 Linaclotide [Linzess] 145 mcg PO 01/28/19 Promethazine Tab [Phenergan Tablet] 25 mg PO 01/28/19 Zolpidem Tartrate [Ambien] 10 mg PO 01/28/19 fentaNYL PATCH 75 MCG/HR [Duragesic Patch 75 MCG/HR] 75 mcg TD 01/28/19 Decision To Admit - Decistion To Admit Decision to Admit Date: 01/28/19 Decision to Admit Time: 14:17 <Steve Clemons - Last Filed: 01/28/19 14:19>
[2019-01-28] MEDS ORDERED: SODIUM CHLORIDE 0.9% 1000ML 1,000 ML IVS ONE (03:50)
[2019-01-28] MEDS ORDERED: PROCHLORPERAZINE INJ 10 MG/2 ML VIAL IV ONE ×2 (03:50→06:51)
[2019-01-28] MEDS ORDERED: fentaNYL CITRATE INJ 50 MCG/ML AMP IV ONE ×3 (03:50→08:33)
[2019-01-28] MEDS ORDERED: SULFA/TRIMETH 800/160 (DS) TAB 1 EA TAB PO ONE (04:46)
[2019-01-28] MEDS ORDERED: CLINDAMYCIN IV 600MG 600 MG in PREMIX BAG 1 BAG IVPB ONE (04:46)
[2019-01-28] MEDS ORDERED: CLINDAMYCIN IV 600MG 50 ML IVPB ONE (04:48)
--- NOTE | 2019-01-28 04:57 | CT ---
CT abdomen and pelvis with contrast on 01/28/2019 CLINICAL INDICATION: Generalized abdominal pain and distention TECHNIQUE: Multiple axial images are obtained throughout the abdomen and pelvis following the administration of IV contrast. This exam was performed according to our departmental dose-optimization program, which includes automated exposure control, adjustment of the mA and/or kV according to patient size and/or use of iterative reconstruction technique. Total DLP is 475.44 mGy*cm. COMPARISON: 04/13/2018 FINDINGS: Abdomen: The lung bases are clear. There is fatty infiltration of the liver. There is some mild gallbladder wall thickening with abnormal enhancement of the gallbladder wall, consider follow-up right upper quadrant ultrasound. The solid abdominal organs are otherwise unremarkable. There is no abdominal adenopathy. There is no free fluid or free air within the abdomen. GI tract is fluid filled consistent with a diarrheal illness and may be related to a gastroenteritis. The abdominal portion of the GI tract is otherwise unremarkable. Pelvis: There is no free fluid in the pelvis. The patient is status post hysterectomy. There is no pelvic adenopathy. There is stable thin subcutaneous fluid collection in the anterior pelvic wall subcutaneous tissues likely representing small old postoperative seroma or hematoma. Pelvic portion of the GI tract including the appendix is otherwise unremarkable. Degenerative changes are noted in the spine. IMPRESSION: 1. Fluid-filled GI tract that may be related to a gastroenteritis. 2. Fatty infiltration of the liver. 3. Mild gallbladder wall thickening with enhancing gallbladder wall, consider follow-up ultrasound. Electronically signed by: Jarret Uriostegui 01/28/2019 4:53 AM CDT
--- NOTE | 2019-01-28 08:23 | CONS ---
DATE OF CONSULTATION: 01/28/19 HISTORY OF PRESENT ILLNESS: The patient is a 48-year-old female who states she went to bed with a normally flat abdomen and no significant discomfort. She awoke early this morning with pain, nausea, she vomited and noted her abdomen to be grossly distended. She states she had a normal bowel movement yesterday. She denies blood per rectum, melanotic stools or hematemesis. She states she did not eat yesterday. She denies fever or chills. The patient has a very complicated abdominal history in that she had a which was complicated by bleeding and required laparotomy for drainage of hematoma. She has a history, according to her, of multiple percutaneous drainages for abscesses that nothing has ever grown and no certain etiology. She states she has had an extensive workup by the school community relations coordinator, Dr. Vanessa, in [place] and there is no known etiology for her GI symptoms. PAST MEDICAL HISTORY: 1. Rheumatoid arthritis. 2. Fibromyalgia. 3. Hypertension. PAST SURGICAL HISTORY: 1. Hysterectomy. MEDICATIONS: Her medications are listed in the chart. FAMILY HISTORY: Positive for rheumatoid arthritis and ureteral malignancy of her father. SOCIAL HISTORY: The patient is . She does not use tobacco or alcohol. REVIEW OF SYSTEMS: The patient did have a dog bite yesterday to the left forearm just distal to the elbow. This was from a pit bull that she knows from the neighborhood. She states she did report it to animal control. She has required significant pain medication. LABORATORY: White count 11,000, hemoglobin 14. She had a normal differential. Amylase and lipase were within normal limits as were electrolytes. CT scan of the abdomen revealed no significant inflammatory process. There is a question of thickening of the gallbladder wall and distention of the gallbladder with fluid consistent with gastroenteritis. The appendix was noted to be normal with no abnormal fluid collections and no free air noted. ASSESSMENT: 1. Abdominal pain and distention of uncertain etiology. PLAN: Recommend obtaining an ultrasound and would recommend further fluid rehydration. We will likely recommend the patient be admitted to the hospitalist service for observation and rehydration. #[id number] [facility]
--- NOTE | 2019-01-28 08:51 | US ---
EXAM DESCRIPTION: Gall Bladder: ULTRASOUND. CLINICAL HISTORY: thickened GB wall COMPARISON: CT scan of the abdomen today. TECHNIQUE: Transabdominal scanning: Landon-scale and Doppler modes. FINDINGS: Gallbladder: Small and large echogenic structure with acoustic shadowing most likely a stone or multiple stones. Minimal fluid around the gallbladder. No wall thickening. 2.8 mm. Non-tender with transducer pressure. Common bile duct: caliber 2.7 mm within normal limits. Liver: Increased echogenicity; contour liver capsule smooth where seen. No fluid around the liver. Intrahepatic biliary ducts normal caliber. Doppler hepatopedal flow portal vein.. Long axis right lobe 18.6 cm. Pancreas: Obscured by intestinal gas. Aorta: Proximal caliber 2.0 cm. Right kidney: 9.5 cm long axis. Normal cortical thickness and echogenicity. No hydronephrosis, stones, or perirenal fluid. IMPRESSION: Thickened gallbladder wall with edema around the wall and multiple gallstones consistent with acute cholecystitis and cholelithiasis. Normal caliber common bile duct. Fatty liver with minimal enlargement. No focal lesions. No ascites. Right kidney and proximal aorta unremarkable. Pancreas and mid and distal abdominal aorta obscured by intestinal gas. Electronically signed by: Dilshad Mckay MD 01/28/2019 8:48 AM CDT
[2019-01-28] MEDS ORDERED: HYDROmorphone HCL INJ 2 MG/ML VIAL IV ONE ×2 (11:17→13:02)
[2019-01-28] MEDS ORDERED: PROMETHAZINE HCL INJ 25 MG/ML VIAL IM PRN (11:18)
[2019-01-28] MEDS ORDERED: PROMETHAZINE HCL INJ 12.5 MG in SODIUM CHLORIDE 0.9% 50ML 50 ML IVPB ONE (11:24)
[2019-01-28] MEDS ORDERED: SODIUM CHLORIDE 0.9% 50ML 50 ML ONE ×2 (11:24→18:24)
--- NOTE | 2019-01-28 14:33 | HP ---
SUPERVISING PHYSICIAN: Cl Kim M.D. CHIEF COMPLAINT: Dog bite to the bilateral arms and abdominal pain. HISTORY OF PRESENT ILLNESS: This is a 48 year-old female patient who came to the E. R. secondary to generalized abdominal pain that radiated to her back. She had been feeling nauseated the day before and actually had vomited once, but continued to feel nauseated and worse, so she came to the Emergency Room. It is also to be noted that yesterday she was bitten by a pit bull on her left arm as well as her right hand. Animal Control was contacted. In the Emergency Room, she was given some clindamycin and lab was done as well as a CT of the abdomen, a gallbladder sonogram and an abdominal x-ray. In the E. R., her CBC was basically within normal limits with the exception of her WBCs were elevated at 11.2. Electrolytes were basically within normal limits. Serum osmolality was 273.9. Total bilirubin was 0.2, indirect bilirubin was 0.1, AST 48, lipase was 50 and amylase 46. Urinalysis was unremarkable. Abdominal x-ray showed nonspecific abdomen. Abdomen and pelvis CT showed: 1. Thin subcutaneous fluid collection in the anterior pelvic wall subcutaneous tissues likely representing small old postoperative seroma or hematoma. 2. Fluid-filled gastrointestinal tract may be related to gastroenteritis. 3. Fatty infiltration of the liver. 4. Mild gallbladder wall thickening with enhancing gallbladder wall. Consider followup ultrasound. Her gallbladder ultrasound showed thickened gallbladder wall with edema around the wall and multiple gallstones consistent with acute cholecystitis and cholelithiasis. Normal caliber common bile duct. Fatty liver with minimal enlargement. No focal lesions. No ascites. Right kidney and proximal aorta unremarkable. Pancreas and mild and distal abdominal aorta obscured by intestinal gas. Dr. Everett was consulted in the Emergency Room. After examining the patient, he asked that I would speak to her assistant finance manager, Dr. Vanessa in [place]. Dr. Vanessa felt that if she needed surgery because of her multiple GI problems by history, that she may need to go to [place], but after discussing with the surgeon, including Dr. Everett, we decided that we would keep the patient here and treat for gastroenteritis and monitor her condition closely, and followup with Dr. Vanessa as an outpatient. Dr. Bojorquez, the assistant finance manager process control operator, said if her condition worsened she could be transferred to [facility]. PAST MEDICAL HISTORY: 1. Rheumatoid arthritis. 2. Fibromyalgia. 3. Hypertension. 4. Mild asthma. 5. Peripheral neuropathy. PAST SURGICAL HISTORY: 1. Total hysterectomy. 2. Breast reduction surgery. 3. Some kind of other gynecological procedure. CURRENT MEDICATIONS: Per the EMR and awaiting verification. ALLERGIES: FAMILY HISTORY: Positive for cancer, heart disease, stroke, diabetes. SOCIAL HISTORY: She lives in [place]. She is . She denies any tobacco, ETOH or illicit drug use. REVIEW OF SYSTEMS: GENERAL: Negative for fever, chills or weight changes. HEENT: Negative for sinus symptoms, ear pain, vision changes or sore throat. RESPIRATORY: Negative for coughing, wheezing or shortness of breath. CARDIOVASCULAR: Negative for chest pains, palpitations or tachycardia. GASTROINTESTINAL: As per History of Present Illness. GENITOURINARY: Negative for hematuria, dysuria or polyuria. SKIN: Dog bites to her left arm and right hand as per History of Present Illness. NEUROLOGIC: She denies headaches, dizziness or seizures. PHYSICAL EXAMINATION: VITAL SIGNS: Temperature 98.6, heart rate 92, blood pressure 129/90, respiratory rate 20, O2 sat 94% on room air. GENERAL: This is a 48 year-old female patient sitting up in her hospital bed. She is in no acute distress. HEENT: Normocephalic and atraumatic. Pupils are equal and reactive. Oropharynx is clear. NECK: Supple without mass. RESPIRATORY: Essentially clear to auscultation bilaterally. CARDIOVASCULAR: Regular rate and rhythm. GASTROINTESTINAL: Abdomen is rounded but soft. There are several small scars on her abdomen that she says are from fibromyalgia. It is diffusely tender but there is no rebound tenderness or guarding. EXTREMITIES: She has several dog bites on her left leg arm, one at the posterior elbow as well as the anterior elbow, one on the forearm and one on the left hand as well as one on the left hand and knuckle. There is no drainage or fluctuance. They are slightly erythematous around the actual bit itself. There is no warmth. NEUROLOGIC: She is awake, alert and oriented times three. Cranial nerves II- XII are grossly intact. ASSESSMENT: 1. Gastroenteritis with questions for old abdominal abscess. She has had those drained several times in the past and they continue to reoccur. She also has mild leukocytosis. 2. Dog bite to the left arm and right hand. Animal Control has been contacted and she is presently on antibiotics. 3. Cholelithiasis with probably early stages of cholecystitis. Amylase and lipase were normal. 4. Elevated AST with the remainder of LFTs within normal limits. 5. Fibromyalgia. 6. Hypertension. 7. Rheumatoid arthritis. PLAN: We will admit the patient to the hospital. I will make her NPO and do bowel rest for now. She will have primary IV fluid as well as will continue her on Levaquin and Flagyl. I spoke with Dr. Bojorquez, assistant finance manager in [place], and he said we could contact him for any problems or complications. I have put her on a PPI for ulcer prophylaxis and Lovenox for DVT prophylaxis. Will repeat her labs and x-ray in the morning. Dr. Everett has previously been consulted. Will continue to monitor closely and follow as needed. #[id number] [facility]
[2019-01-28] MEDS ORDERED: ONDANSETRON INJ 4 MG/2 ML VIAL IV PRN (15:58)
[2019-01-28] MEDS ORDERED: SODIUM CHLORIDE 0.9% (FLUSH) 10 ML SYG IV PRN (15:58)
[2019-01-28] MEDS ORDERED: HYDROmorphone HCL INJ 2 MG/ML VIAL IV PRN (16:02)
[2019-01-28] MEDS: IV SET AND CAP CHANGE INJ INJ SCH (16:20)
[2019-01-28] MEDS ORDERED: levoFLOXacin 500MG IV 100 ML IVPB ONE (16:23)
[2019-01-28] MEDS: levoFLOXacin 500MG IV 500 MG in PREMIX BAG 1 BAG IVPB SCH (16:29)
[2019-01-28] MEDS: DEX 5% W/NACL 0.45% 1000ML 1,000 ML IVS PRN (16:30)
[2019-01-28] MEDS ORDERED: metroNIDAZOLE IV PREMIX 500MG 100 ML IVPB ONE (16:40)
[2019-01-28] MEDS ORDERED: DULoxetine HCL 30 MG CAP PO ONE ×2 (17:48→18:04)
[2019-01-28] MEDS: metroNIDAZOLE IV PREMIX 500MG 500 MG in PREMIX BAG 1 BAG IVPB SCH (18:05)
[2019-01-28] MEDS ORDERED: PROMETHAZINE HCL INJ 25 MG/ML VIAL ONE (18:24)
[2019-01-28] MEDS: PROMETHAZINE HCL INJ 25 MG in SODIUM CHLORIDE 0.9% 50ML 50 ML IVPB PRN (18:43)
[2019-01-28] MEDS: HYDROmorphone HCL INJ 2 MG/ML VIAL IV PRN (21:11)
[2019-01-28] MEDS: ENOXAPARIN SODIUM 40 MG/0.4 ML SYG SUBCU SCH (21:14)
[2019-01-28] MEDS: SODIUM CHLORIDE 0.9% (FLUSH) 10 ML SYG IV SCH (21:19)
[2019-01-29] MEDS ORDERED: PROMETHAZINE HCL INJ 25 MG/ML VIAL ONE ×4 (01:06→17:51)
[2019-01-29] MEDS ORDERED: SODIUM CHLORIDE 0.9% 50ML 50 ML ONE ×4 (01:06→17:52)
[2019-01-29] MEDS: PROMETHAZINE HCL INJ 25 MG in SODIUM CHLORIDE 0.9% 50ML 50 ML IVPB PRN ×4 (01:10→18:17)
[2019-01-29] MEDS: HYDROmorphone HCL INJ 2 MG/ML VIAL IV PRN ×6 (01:13→20:02)
[2019-01-29] MEDS: DEX 5% W/NACL 0.45% 1000ML 1,000 ML IVS PRN ×2 (01:20→12:22)
[2019-01-29] MEDS ORDERED: metroNIDAZOLE IV PREMIX 500MG 100 ML IVPB ONE ×3 (02:14→17:42)
[2019-01-29] MEDS: metroNIDAZOLE IV PREMIX 500MG 500 MG in PREMIX BAG 1 BAG IVPB SCH ×3 (02:18→18:50)
[2019-01-29] MEDS: PANTOPRAZOLE SODIUM IV 40 MG VIAL IV SCH (06:42)
--- NOTE | 2019-01-29 07:55 | RAD ---
ABDOMEN 01/29/2019 CLINICAL HISTORY: Gastroenteritis COMPARISON: Abdomen 01/28/2019 TECHNIQUE: Supine and upright AP images of the abdomen FINDINGS: There is a paucity small bowel air. A few colonic fluid levels are seen within the mid to upper abdomen. Mild colonic stool noted. No free air. No pathologic calcification. Unremarkable bony structures. Imaged lung bases are clear. Heart is normal in size. IMPRESSION: 1. A few scattered colonic fluid levels suggestive mild enteritis. No evidence of ileus or obstruction. Electronically signed by: Amy Mathew DO 01/29/2019 7:52 AM CDT
[2019-01-29] MEDS: SODIUM CHLORIDE 0.9% (FLUSH) 10 ML SYG IV SCH ×2 (09:15→21:04)
[2019-01-29] MEDS ORDERED: HYDROmorphone HCL INJ 2 MG/ML VIAL IV ONE ×2 (09:30→23:51)
--- NOTE | 2019-01-29 10:02 | PN ---
SUPERVISING PHYSICIAN: Jean Paul Kim MD DATE: 01/29/19 SUBJECTIVE: The patient is lying in bed. She had an infiltrated IV in her tenderness hand. She complains of intense pain as well as some mild abdominal pain and nausea. She is quite worried that her Cymbalta has been negated by the antibiotics. I assured her we would restart her medications as soon as she is no longer nauseated. She denies chest pain or shortness of breath. OBJECTIVE: VITAL SIGNS: Temperature 98.4. Heart rate 85. Blood pressure 112/75. Respiratory rate 20. O2 saturation 91% on room air. RESPIRATORY: Essentially clear to auscultation bilaterally. CARDIAC: Regular rate and rhythm. GASTROINTESTINAL: Abdomen is slightly distended, but rather soft. It is diffuse tender. EXTREMITIES: The dog bites to her left arm and right hand continue to improve. There is no drainage or fluctuance noted at the puncture sites. NEUROLOGIC: Awake, alert and oriented times three. LABORATORY: CBC is unremarkable. Electrolytes are basically within normal limits with the exception that her calcium is slightly low at 8.1. Her abdominal x-ray shows a few scattered colonic fluid levels suggestive of mild enteritis. No evidence of ileus or obstructions. All other labs and films have been reviewed via the EMR. ASSESSMENT: 1. Gastroenteritis with questions for old abdominal abscess. She has had those drained several times in the past and they continue to reoccur. She also has mild leukocytosis. 2. Dog bite to the left arm and right hand. Animal Control has been contacted and she is presently on antibiotics. 3. Cholelithiasis with probably early stages of cholecystitis. Amylase and lipase were normal. 4. Elevated AST with the remainder of liver function tests within normal limits. 5. Fibromyalgia. 6. Hypertension. 7. Rheumatoid arthritis. PLAN: We will continue present supportive care. I will defer abdominal and surgical issues to Dr. Everett, general surgeon. The plan is for her to eventually take solid foods and discharge her so she can have close followup with her GI specialist, Dr. Vanessa. At this point, I do not believe any lab is needed for in the morning as those have fairly normalized. We will continue to monitor the patient closely and follow as needed. #[id number] [facility]
[2019-01-29] MEDS ORDERED: levoFLOXacin 500MG IV 100 ML IVPB ONE (16:35)
[2019-01-29] MEDS: levoFLOXacin 500MG IV 500 MG in PREMIX BAG 1 BAG IVPB SCH (16:52)
[2019-01-29] MEDS ORDERED: DULoxetine HCL 30 MG CAP PO ONE ×2 (17:46→21:32)
[2019-01-29] MEDS: ENOXAPARIN SODIUM 40 MG/0.4 ML SYG SUBCU SCH (21:02)
[2019-01-29] MEDS ORDERED: HYDROcodone 10MG/APAP 325MG 1 EA TAB PO ONE (21:29)
[2019-01-29] MEDS ORDERED: diazePAM 2 MG TAB PO ONE (21:37)
[2019-01-29] MEDS ORDERED: ZOLPIDEM TARTRATE 10 MG TAB PO ONE (21:37)
[2019-01-29] MEDS ORDERED: fentaNYL PATCH 75 MCG/HR 1 EA PATCH TD SCH (22:00)
[2019-01-29] MEDS ORDERED: HYDROmorphone HCL INJ 2 MG/ML VIAL ONE (23:54)
[2019-01-30] MEDS: DEX 5% W/NACL 0.45% 1000ML 1,000 ML IVS PRN ×3 (00:08→22:46)
[2019-01-30] MEDS ORDERED: metroNIDAZOLE IV PREMIX 500MG 100 ML IVPB ONE ×4 (01:23→19:44)
[2019-01-30] MEDS ORDERED: PROMETHAZINE HCL INJ 25 MG/ML VIAL ONE ×2 (01:43→08:37)
[2019-01-30] MEDS ORDERED: SODIUM CHLORIDE 0.9% 50ML 50 ML ONE ×2 (01:43→08:37)
[2019-01-30] MEDS: PROMETHAZINE HCL INJ 25 MG in SODIUM CHLORIDE 0.9% 50ML 50 ML IVPB PRN ×2 (01:47→09:12)
[2019-01-30] MEDS: metroNIDAZOLE IV PREMIX 500MG 500 MG in PREMIX BAG 1 BAG IVPB SCH ×3 (02:33→17:59)
[2019-01-30] MEDS ORDERED: HYDROmorphone HCL INJ 2 MG/ML VIAL IV ONE ×2 (05:40→18:48)
[2019-01-30] MEDS: PANTOPRAZOLE SODIUM IV 40 MG VIAL IV SCH (05:51)
[2019-01-30] MEDS: SODIUM CHLORIDE 0.9% (FLUSH) 10 ML SYG IV SCH ×2 (09:11→21:05)
[2019-01-30] MEDS ORDERED: NON-FORMULARY MEDICATION 1 EA MIS (Linaclotide [Linzess] 145 MCG) PO PRN (10:36)
[2019-01-30] MEDS ORDERED: MAGNESIUM HYDROXIDE 30 ML UD PO ONE (10:36)
[2019-01-30] MEDS ORDERED: MAGNESIUM HYDROXIDE 30 ML UD ONE (10:56)
[2019-01-30] MEDS ORDERED: DULoxetine HCL 30 MG CAP PO ONE ×2 (10:56→21:32)
[2019-01-30] MEDS ORDERED: diazePAM 2 MG TAB ONE (10:57)
[2019-01-30] MEDS: diazePAM 2 MG TAB PO SCH ×2 (11:00→21:07)
[2019-01-30] MEDS ORDERED: fentaNYL PATCH 75 MCG/HR 1 EA PATCH TD SCH ×2 (11:00→22:00)
[2019-01-30] MEDS: DULoxetine HCL 30 MG CAP PO SCH ×2 (11:05→21:07)
[2019-01-30] MEDS: HYDROcodone 10MG/APAP 325MG 1 EA TAB PO PRN ×2 (12:59→21:06)
[2019-01-30] MEDS: PROMETHAZINE HCL 25 MG TAB PO PRN ×2 (13:27→21:50)
[2019-01-30] MEDS ORDERED: MINERAL OIL/PETROLATUM OPHTH OINT 1 APPLIC UD BOTH_EYES SCH (13:30)
[2019-01-30] MEDS ORDERED: levoFLOXacin 500MG IV 100 ML IVPB ONE (16:38)
[2019-01-30] MEDS: PANTOPRAZOLE SODIUM TAB 40 MG PO SCH (16:45)
[2019-01-30] MEDS: levoFLOXacin 500MG IV 500 MG in PREMIX BAG 1 BAG IVPB SCH (16:45)
--- NOTE | 2019-01-30 19:33 | PN ---
DATE: 01/30/19 SUPERVISING PHYSICIAN: Cl Kmi M.D. SUBJECTIVE: The patient is resting in bed. She continues to have some mild abdominal pain and nausea. She has been able to transition to her oral medications including Cymbalta. She notes that her nausea is no longer present. She has had no further complaints. OBJECTIVE: VITAL SIGNS: Temperature 98.4, pulse 78, blood pressure 134/84, respirations 16, satting 92% on room air. I's and O's show a negative balance of 399 with 1301 in, 1700 out. Weight is 69.7 kg. CHEST: Lung sounds were clear to auscultation bilaterally. HEART: Regular rate and rhythm. ABDOMEN: Continues to be slightly distended but soft, diffusely tender with hypoactive bowel sounds. EXTREMITIES: Dog bite to left arm and right hand continue to show improving. No drainage or fluctuance noted on puncture sites. NEUROLOGIC: She is alert and oriented times three. LABORATORY: CBC shows a white count of 6,300 without a left shift on differential. Chemistry is showing to be within normal limits with BUN of less than 5, creatinine 0.68. Liver functions are all within normal limits. ASSESSMENT: 1. Gastroenteritis with questionable old abdominal abscess followed by Dr. Everett, clinically improving. 2. Dog bite to the left arm and right hand showing good clinical improvement with antibiotic therapy. 3. Questionable cholelithiasis versus biliary colic versus early stages of cholecystitis with normal amylase and lipase. Liver functions being followed by Dr. Everett. 4. Elevated AST now showing to have normalized. 5. Fibromyalgia. 6. Hypertension. 7. Rheumatoid arthritis. PLAN: Will continue to monitor the patient closely along with Dr. Everett. She has been advanced to a clear liquid diet. I have resumed her home medications orally. Will give her a dose of Milk of Magnesia. We have increased her Protonix to b.i.d. 40 mg. She remains on Levaquin and Flagyl. Will anticipate hopefully being able to discharge tomorrow as she tolerates her diet, to be followed-up with Dr. Everett in the outpatient setting. Until then will continue to monitor and treat as needed. [facility][id number] [facility]
[2019-01-30] MEDS: ZOLPIDEM TARTRATE 10 MG TAB PO SCH (21:06)
[2019-01-30] MEDS: ENOXAPARIN SODIUM 40 MG/0.4 ML SYG SUBCU SCH (21:08)
[2019-01-30] MEDS: ESTROGENS CONJUGATED 1.25 MG PO SCH (21:09)
[2019-01-31] MEDS: metroNIDAZOLE IV PREMIX 500MG 500 MG in PREMIX BAG 1 BAG IVPB SCH ×3 (02:00→17:46)
[2019-01-31] MEDS ORDERED: PROMETHAZINE HCL INJ 25 MG/ML VIAL ONE (05:25)
[2019-01-31] MEDS ORDERED: SODIUM CHLORIDE 0.9% 50ML 50 ML ONE (05:26)
[2019-01-31] MEDS: PROMETHAZINE HCL INJ 25 MG in SODIUM CHLORIDE 0.9% 50ML 50 ML IVPB PRN (05:31)
[2019-01-31] MEDS: PANTOPRAZOLE SODIUM TAB 40 MG PO SCH ×2 (06:27→16:32)
[2019-01-31] MEDS: DEX 5% W/NACL 0.45% 1000ML 1,000 ML IVS PRN ×2 (09:56→22:55)
[2019-01-31] MEDS: diazePAM 2 MG TAB PO SCH ×2 (10:06→20:42)
[2019-01-31] MEDS: SODIUM CHLORIDE 0.9% (FLUSH) 10 ML SYG IV SCH ×2 (10:06→20:42)
[2019-01-31] MEDS: DULoxetine HCL 30 MG CAP PO SCH ×2 (10:07→20:42)
[2019-01-31] MEDS ORDERED: metroNIDAZOLE IV PREMIX 500MG 100 ML IVPB ONE ×3 (10:15→19:05)
[2019-01-31] MEDS: HYDROcodone 10MG/APAP 325MG 1 EA TAB PO PRN ×2 (10:52→20:45)
[2019-01-31] MEDS: PROMETHAZINE SUPP 25 MG SUP PR PRN ×2 (10:52→17:45)
[2019-01-31] MEDS ORDERED: HYDROmorphone HCL INJ 2 MG/ML VIAL IV ONE (12:23)
--- NOTE | 2019-01-31 15:15 | PN ---
DATE: 01/31/19 SUPERVISING PHYSICIAN: Roman Priest M.D. SUBJECTIVE: The patient notes that her pain is a little bit less than previous. She did have an episode of nausea this morning requiring Phenergan. She still continues to require some pain management, but appears to be resting comfortably. She has had no other complaints. OBJECTIVE: VITAL SIGNS: Temperature 97, pulse 90, blood pressure 117/80, respirations 20, satting 93% on room air at rest. Weight is at 70.4 kg. CHEST: Lung sounds were clear to auscultation bilaterally. HEART: Regular rate and rhythm. ABDOMEN: Continues to be slightly distended but soft, diffusely tender with hypoactive bowel sounds. EXTREMITIES: Dog bite to left arm and right hand continue to show improving. No drainage or fluctuance noted on puncture sites. NEUROLOGIC: She is alert and oriented times three. LABORATORY: No additional laboratory studies were completed today. No additional radiographic studies. ASSESSMENT: 1. Gastroenteritis with questionable old abdominal abscess followed by Dr. Everett, clinically improving. 2. Dog bite to the left arm and right hand showing good clinical improvement with antibiotic therapy. 3. Questionable cholelithiasis versus biliary colic versus early stages of cholecystitis with normal amylase and lipase. Liver functions being followed by Dr. Everett. 4. Elevated AST now showing to have normalized. 5. Fibromyalgia. 6. Hypertension. 7. Rheumatoid arthritis. PLAN: Will continue to follow the patient with the help of Dr. Everett. We have given her Phenergan for the nausea. I have told her that we would discuss additional dosing of pain management as needed. Will anticipate discharging tomorrow. Until we can discharge her to outpatient management will continue to monitor and treat as needed. #[id number] [facility]
[2019-01-31] MEDS: IV SET AND CAP CHANGE INJ INJ SCH (16:01)
[2019-01-31] MEDS ORDERED: levoFLOXacin 500MG IV 100 ML IVPB ONE (16:09)
[2019-01-31] MEDS: levoFLOXacin 500MG IV 500 MG in PREMIX BAG 1 BAG IVPB SCH (16:32)
[2019-01-31] MEDS: HYDROmorphone HCL INJ 2 MG/ML VIAL IV PRN ×2 (17:44→21:52)
[2019-01-31] MEDS: PROMETHAZINE HCL 25 MG TAB PO PRN (18:25)
[2019-01-31] MEDS: ZOLPIDEM TARTRATE 10 MG TAB PO SCH (20:41)
[2019-01-31] MEDS: ENOXAPARIN SODIUM 40 MG/0.4 ML SYG SUBCU SCH (20:42)
[2019-01-31] MEDS: ESTROGENS CONJUGATED 1.25 MG PO SCH (20:42)
[2019-02-01] MEDS: metroNIDAZOLE IV PREMIX 500MG 500 MG in PREMIX BAG 1 BAG IVPB SCH ×2 (01:32→08:33)
[2019-02-01] MEDS: HYDROmorphone HCL INJ 2 MG/ML VIAL IV PRN ×3 (02:27→11:05)
[2019-02-01] MEDS: PROMETHAZINE HCL 25 MG TAB PO PRN (03:48)
[2019-02-01] MEDS: HYDROcodone 10MG/APAP 325MG 1 EA TAB PO PRN (05:04)
[2019-02-01] MEDS: PANTOPRAZOLE SODIUM TAB 40 MG PO SCH (06:12)
[2019-02-01] MEDS ORDERED: metroNIDAZOLE IV PREMIX 500MG 100 ML IVPB ONE (07:27)
[2019-02-01] MEDS: diazePAM 2 MG TAB PO SCH (08:34)
[2019-02-01] MEDS: DULoxetine HCL 30 MG CAP PO SCH (08:34)
[2019-02-01] MEDS: SODIUM CHLORIDE 0.9% (FLUSH) 10 ML SYG IV SCH (08:35)
[2019-02-01 10:45] VITALS: BP 113/77; TEMP 98.2; O2SAT 94
[2019-02-01] MEDS ORDERED: REMOVE OLD PATCH TOP SCH (21:00)
--- NOTE | 2019-02-10 11:25 | DS ---
SUPERVISING PHYSICIAN: Roman Priest MD ADMISSION DIAGNOSIS: 1. Gastroenteritis with questions for old abdominal abscess. She has had those drained several times in the past and they continue to reoccur. She also has mild leukocytosis. 2. Dog bite to the left arm and right hand. Animal Control has been contacted and she is presently on antibiotics. 3. Cholelithiasis with probably early stages of cholecystitis. Amylase and lipase were normal. 4. Elevated AST with the remainder of LFTs within normal limits. 5. Fibromyalgia. 6. Hypertension. 7. Rheumatoid arthritis. DISCHARGE DIAGNOSIS: 1. Gastroenteritis with questionable old abdominal abscess followed by Dr. Everett, clinically improving. 2. Dog bite to the left arm and right hand showing good clinical improvement with antibiotic therapy. 3. Questionable cholelithiasis versus biliary colic versus early stages of cholecystitis with normal amylase and lipase. Liver functions being followed by Dr. Everett. 4. Elevated AST now showing to have normalized. 5. Fibromyalgia. 6. Hypertension. 7. Rheumatoid arthritis. REASON FOR HOSPITALIZATION: This is a 48 year-old female patient who came to the E. R. secondary to generalized abdominal pain that radiated to her back. She had been feeling nauseated the day before and actually had vomited once, but continued to feel nauseated and worse, so she came to the Emergency Room. It is also to be noted that yesterday she was bitten by a pit bull on her left arm as well as her right hand. Animal Control was contacted. In the Emergency Room, she was given some clindamycin and lab was done as well as a CT of the abdomen, a gallbladder sonogram and an abdominal x-ray. In the E. R., her CBC was basically within normal limits with the exception of her WBCs were elevated at 11.2. Electrolytes were basically within normal limits. Serum osmolality was 273.9. Total bilirubin was 0.2, indirect bilirubin was 0.1, AST 48, lipase was 50 and amylase 46. Urinalysis was unremarkable. Abdominal x-ray showed nonspecific abdomen. Abdomen and pelvis CT showed 1) Thin subcutaneous fluid collection in the anterior pelvic wall subcutaneous tissues likely representing small old postoperative seroma or hematoma. 2) Fluid-filled gastrointestinal tract may be related to gastroenteritis. 3) Fatty infiltration of the liver. 4) Mild gallbladder wall thickening with enhancing gallbladder wall. Consider followup ultrasound. Her gallbladder ultrasound showed thickened gallbladder wall with edema around the wall and multiple gallstones consistent with acute cholecystitis and cholelithiasis. Normal caliber common bile duct. Fatty liver with minimal enlargement. No focal lesions. No ascites. Right kidney and proximal aorta unremarkable. Pancreas and mild and distal abdominal aorta obscured by intestinal gas. Dr. Everett was consulted in the Emergency Room. After examining the patient, he asked that I would speak to her agriculture inspector, Dr. Vanessa in [place]. Dr. Vanessa felt that if she needed surgery because of her multiple GI problems by history, that she may need to go to [place], but after discussing with the surgeon, including Dr. Everett, we decided that we would keep the patient here and treat for gastroenteritis and monitor her condition closely, and followup with Dr. Vanessa as an outpatient. Dr. Bojorquez, the agriculture inspector environmental sustainability manager, said if her condition worsened she could be transferred to [facility]. LABORATORY: White count on admission was 11,200, at discharge 6,900. Hemoglobin stable at 10.8 and hematocrit 32.8. Differential was without a left shift both on admission and prior to discharge. Chemistries on admission showed normal electrolytes. Amylase 45, lipase 50. Serum HCG was negative. TSH normal. BUN 12, creatinine 0.65, calcium 8.9, magnesium 1.8. Liver functions did show a slight ALT elevation at 48, but this resolved prior to discharge and was 16. Electrolytes and other chemistries remained within normal limits prior to discharge. MICROBIOLOGY: No cultures were submitted. RADIOLOGY: She had multiple x-rays. Initially, she had abdominopelvic CT in the Emergency Room with contrast that showed fluid-filled gastrointestinal tract may be related to gastroenteritis, fatty infiltration of the liver and mild gallbladder wall thickening with enhancing gallbladder wall. This was followed up with abdominal x-ray and per radiologic interpretation showed nonspecific abdomen as well as she had a gallbladder ultrasound the morning of admission and per radiologic interpretation showed thickened wall of the gallbladder with edema around the wall and multiple gallstones consistent with acute cholecystitis and cholelithiasis, normal caliber bile duct, fatty liver and luminal enlargement. No focal lesions, no ascites. Right kidney and proximal aorta unremarkable, pancreas and mild distal abdominal aorta obscured by intestinal gas. She had additional abdominal x-ray on 01/29/19 and per radiologic interpretation showed a few scattered colonic fluid levels suggestive of mild enteritis, but no evidence of ileus or obstruction. HOSPITAL COURSE: Ms. Brewer was admitted for questionable acute cholecystitis. She was medically treated conservatively with pain management, IV antibiotics initially with clindamycin and transitioned to Levaquin and Flagyl. She had slow progression and continued to have a lot of pain which slowly subsided until the day of discharge when she was without any significant pain on palpation. It was felt she could continue with outpatient management without any other concerns. She was seen in consultation by Dr. Everett. Please see his report for full details. PLAN: Ms. Brewer was discharged on 02/01/19 with instructions to followup with Dr. Everett, Dr. Monterroso and Dr. Vanessa after discharge. She was told to take her home medications once discharged. She was to have a low-fat diet as well as increase activity as tolerated. She was given warnings to return to the hospital should she have any worsening or other concerning symptoms. MEDICATIONS AT DISCHARGE: 1. Levaquin 500 mg, #5, no refills. 2. Flagyl 500 mg q.8h., #20, no refills. DISCHARGE PHYSICAL EXAMINATION: VITAL SIGNS: Temperature 98.2. Pulse 84. Blood pressure 113/77. Respiratory rate 16. Saturation 94% on room air. GENERAL: The patient is resting comfortably without any distress. LUNGS: Clear to auscultation, just slightly diminished towards the bases. HEART: Regular rate and rhythm. ABDOMEN: Soft with continued tenderness across the right upper quadrant. No rebound tenderness. Improved since admission. EXTREMITIES: No cyanosis, clubbing or edema. NEUROLOGIC. She is alert and oriented x3. CONDITION AT DISCHARGE: Stable and improving. DISPOSITION: The patient was discharged to care of family members. #[id number] [facility]
== END 2019-02-01 11:58 | disposition home or self-care (01) | DRG 445 ==
LOC: ER 02:52 → MS 14:32
PROVIDERS: ADMIT Family Medicine; ATTEND Nurse Practitioner Family
DX: K80.00 Calculus of gallbladder with acute cholecystitis without obstruction (principal); L02.211 Cutaneous abscess of abdominal wall; K52.9 Noninfective gastroenteritis and colitis, unspecified; I10 Essential (primary) hypertension; M79.7 Fibromyalgia; M06.9 Rheumatoid arthritis, unspecified; K76.0 Fatty (change of) liver, not elsewhere classified; J45.909 Unspecified asthma, uncomplicated; G62.9 Polyneuropathy, unspecified; S61.451A Open bite of right hand, initial encounter; S51.052A Open bite, left elbow, initial encounter; S51.852A Open bite of left forearm, initial encounter; W54.0XXA Bitten by dog, initial encounter; Y92.9 Unspecified place or not applicable; Z90.710 Acquired absence of both cervix and uterus; Z98.890 Other specified postprocedural states

== ENCOUNTER 2019-02-04 22:34 | Inpatient (IN) | payer SELFPAY ==
[2019-02-04] MEDS ORDERED: METOCLOPRAMIDE HCL INJ 10 MG/2 ML VIAL IV ONE (23:32)
[2019-02-04] MEDS ORDERED: MEPERIDINE HCL 50 MG/ML VIAL IV ONE (23:32)
--- NOTE | 2019-02-05 00:23 | ED.PDOC ---
History of Present Illness - General Chief Complaint: Abdominal Pain Stated Complaint: abd pain Time Seen by Provider: 02/04/19 23:00 Information Source: patient, RN notes reviewed, Vital Signs reviewed, family Exam Limitations: no limitations - History of Present Illness Initial Comments: c/o chronic, recurring abd pain. Recently released from the hospital for same. Abdominal Pain Onset Location: RUQ Pain Radiation: no radiation Quality: severe Timing/Duration: 24 hours Improving Factors: nothing Worsening Factors: nothing Associated Symptoms: fatigue, nausea/vomiting, weakness Review of Systems - Review of Systems Constitutional: States: see HPI EENTM: States: no symptoms reported Respiratory: States: no symptoms reported Cardiology: States: no symptoms reported Gastrointestinal/Abdominal: States: see HPI Genitourinary: States: no symptoms reported Musculoskeletal: States: no symptoms reported Skin: States: no symptoms reported Neurological: States: no symptoms reported Hematologic/Lymphatic: States: no symptoms reported Past Medical History (General) - Patient Medical History Hx Seizures: No Hx Stroke: No Hx Dementia: No Hx Asthma: No Hx of COPD: No Hx Cardiac Disorders: No Hx Congestive Heart Failure: No Hx Pacemaker: No Hx Hypertension: Yes Hx Thyroid Disease: No Hx Diabetes: No Hx Cancer: No Hx of HIV: No Hx Hepatitis C: No Hx MRSA: No Surgical History: Hysterectomy, other - Vaccination History Hx Tetanus, Diphtheria Vaccination: Yes Hx Influenza Vaccination: No Hx Pneumococcal Vaccination: No - Social History Hx Tobacco Use: No Hx Alcohol Use: No Hx Substance Use: No Hx Substance Use Treatment: No Hx Depression: No Hx Physical Abuse: No Hx Emotional Abuse: No - Female History Patient : No Family Medical History - Family History Mother Family History: Unknown Living Status: Unknown Hx Family Cancer: Yes - dad-ureter,Rheumatoid Arthritis Physical Exam - Physical Exam General Appearance: Alert, Comfortable, No apparent distress Eyes, Ears, Nose, Throat Exam: normal ENT inspection Neck: full range of motion, supple, normal inspection Respiratory: normal breath sounds, no respiratory distress Cardiovascular/Chest: regular rate, rhythm, no edema Gastrointestinal/Abdominal: soft, distended, tenderness Extremity: normal inspection, no pedal edema Neurologic: alert, normal mood/affect, oriented x 3 Skin Exam: normal color, warm/dry Special Observations: No evidence of discomfort Progress - Progress Progress: 02/05/19 00:26 Resting comfortably - Results/Orders Results/Orders: WBC 10 LFTs nml Lipase 55 - Consult/PCP Time Called: 00:27 Consult/PCP: hospitalist & Dr. Everett Departure - Departure Clinical Impression: Abdominal pain Qualifiers: Abdominal location: unspecified location Qualified Code(s): R10.9 - Unspecified abdominal pain Time of Disposition: 00:22 Disposition: Admit Patient Condition: Fair Home Medications: Ambulatory Orders Duloxetine HCl [Cymbalta] 60 mg PO BID 12/16/16 Amphetamine-Dextroamphetamine [Adderall 20 mg] 1 tab PO TID PRN 01/28/19 Cyanocobalamin [B-12 Compliance Injection] 1,000 mcg IJ MONTHLY 01/28/19 Diazepam 1 mg PO QAM 01/28/19 Diazepam 2 mg PO BEDTIME 01/28/19 Estrogens, Conjugated [Premarin] 1.25 mg PO BEDTIME 01/28/19 HYDROcodone 10MG/APAP 325MG [[place] 10/325] 1 ea PO Q6H PRN 01/28/19 Linaclotide [Linzess] 145 mcg PO TID PRN 01/28/19 Promethazine Tab [Phenergan Tablet] 25 mg PO Q8HRS PRN 01/28/19 Valacyclovir HCl 1 gm PO TID PRN 01/28/19 Zolpidem Tartrate [Ambien] 10 mg PO BEDTIME 01/28/19 fentaNYL PATCH 75 MCG/HR [Duragesic Patch 75 MCG/HR] 75 mcg TD Q72H 01/28/19 levoFLOXacin [Levaquin] 500 mg PO DAILY #5 tab 02/01/19 metroNIDAZOLE [Flagyl] 500 mg PO Q8H #20 tab 02/01/19 Decision To Admit - Decistion To Admit Decision to Admit Reason: Admit from ER Decision to Admit Date: 02/05/19 Decision to Admit Time: 00:23
--- NOTE | 2019-02-05 00:36 | HP ---
SUPERVISING PHYSICIAN: Jake Lopez MD CHIEF COMPLAINT: Abdominal pain. HISTORY OF PRESENT ILLNESS: This is a 48-year-old female patient that was in the hospital last week for recurring abdominal pain. At that time, it was felt that she had some gastroenteritis as well as concerns for an early cholecystitis. She spoke to Dr. Everett's office, general surgeon, yesterday and it was recommended she come to the Emergency Room. In the Emergency Room, she complained of nausea, vomiting and diarrhea since being discharged from the hospital last week. She has also required more pain medications than normal as she is on chronic narcotics due to her rheumatoid arthritis and fibromyalgia. She has been unable to keep anything down over the prior 24 hours. She was given some Reglan, some Demerol and promethazine in the Emergency Room. Her CBC was unremarkable. Her electrolytes were unremarkable with the exception of her chloride slightly low at 95. Lactic acid 2.1. Liver enzymes were within normal limits. Lipase 55. She was admitted to the hospital. PAST MEDICAL HISTORY: 1. Rheumatoid arthritis. 2. Fibromyalgia. 3. Hypertension. 4. Mild asthma. 5. Peripheral neuropathy. PAST SURGICAL HISTORY: 1. Total hysterectomy. 2. Breast reduction surgery. 3. Unknown gynecological procedure. 4. Multiple I&Ds of subcutaneous abscesses of the abdomen. OUTPATIENT MEDICATIONS: 1. Dextroamphetamine. 2. Cyanocobalamin. 3. Diazepam. 4. Duloxetine. 5. Estrogen. 6. Hydrocodone. 7. Linzess. 8. Promethazine. 9. Valacyclovir. 10. Zolpidem. 11. Fentanyl patch. ALLERGIES: KETOROLAC, LATEX, MORPHINE, ZOFRAN, DIPHENHYDRAMINE, PENICILLIN G. FAMILY HISTORY: Positive for cancer, heart disease, stroke and diabetes. SOCIAL HISTORY: She is . She lives in [place]. She denies any tobacco, ETOH or illicit drug use. REVIEW OF SYSTEMS: GENERAL: Positive for fatigue. Negative for fever or weight changes. HEENT: Negative for sinus symptoms, ear pain, vision changes or sore throat. RESPIRATORY: Negative for wheezing, coughing or shortness of breath. CARDIAC: Negative for chest pain, palpitations or tachycardia. GASTROINTESTINAL: Positive for abdominal pain, nausea, vomiting and diarrhea. Negative for constipation. GENITOURINARY: Negative for hematuria, dysuria or polyuria. MUSCULOSKELETAL: Negative for arthralgias, myalgias. SKIN: Negative for lesions or rashes. NEUROLOGIC: Negative for headache, dizziness or seizures. PHYSICAL EXAMINATION: VITAL SIGNS: Temperature 97.9. Heart rate 96. Blood pressure 128/90. Respiratory rate 18. O2 saturation 93% on room air. GENERAL: This is a 48-year-old female patient laying in her hospital bed. She is in no acute distress. HEENT: Normocephalic, atraumatic. Pupils are equal and reactive. Oropharynx is clear. NECK: Supple without mass. RESPIRATORY: Essentially clear to auscultation bilaterally. CARDIOVASCULAR: Regular rate and rhythm. GASTROINTESTINAL: Abdomen is significantly rounded, but soft. She has multiple scars on her abdomen from previous surgeries as well as "fibromyalgia scars." She is diffusely tender, but more tender in her epigastric, right upper quadrant area. Bowel sounds are positive. EXTREMITIES: No cyanosis, clubbing or edema. NEUROLOGIC: Awake, alert and oriented times three. Cranial nerves II-XII are grossly intact. IMPRESSION: 1. Chronic epigastric and right upper quadrant abdominal pain with concerns for acute cholecystitis. She also has a significant history of fluid collection in the anterior pelvic wall subcutaneous tissue. She has had I&D as well as drainage to this area multiple times. 2. Chronic pain syndrome, presently on multiple narcotics. 3. Fibromyalgia. 4. Hypertension. 5. Rheumatoid arthritis. 6. Chronic anxiety disorder. 7. Mild asthma, presently no signs or symptoms of acute exacerbation. 8. Peripheral neuropathy. PLAN: We will admit the patient to the hospital. She is presently NPO. Dr. Everett, general surgeon, has been consulted and we will follow his recommendations. She will have primary IV fluids as well as continue on her fentanyl patch as well as some Dilaudid. I have also given her some IV Ativan. She will have SCDs for DVT prophylaxis as well as pantoprazole for ulcer prophylaxis. We will continue to monitor the patient closely and follow as needed. #[id number] [facility]
[2019-02-05] MEDS ORDERED: IV SET AND CAP CHANGE INJ INJ SCH (01:30)
[2019-02-05] MEDS ORDERED: SODIUM CHLORIDE 0.9% 50ML 50 ML ONE ×3 (01:35→07:35)
[2019-02-05] MEDS ORDERED: PROMETHAZINE HCL INJ 25 MG/ML VIAL ONE ×7 (01:35→19:40)
[2019-02-05] MEDS: PROMETHAZINE HCL INJ 25 MG in SODIUM CHLORIDE 0.9% 50ML 50 ML IVPB SCH ×6 (01:45→23:55)
[2019-02-05] MEDS: HYDROmorphone HCL INJ 2 MG/ML VIAL IV PRN ×5 (01:53→22:39)
[2019-02-05] MEDS: KCL 20MEQ/D5 1/2NS 1,000 ML IVS PRN ×4 (02:15→17:21)
[2019-02-05] MEDS ORDERED: LIDOCAINE 1% 10 ML VIAL INJ ONE (07:00)
[2019-02-05] MEDS ORDERED: DEXAMETHASONE INJ 10 MG/ML VIAL ONE (07:00)
[2019-02-05] MEDS ORDERED: METOCLOPRAMIDE HCL INJ 10 MG/2 ML VIAL ONE (07:00)
[2019-02-05] MEDS ORDERED: ePHEDrine SULF 50 MG/ML ONE (07:00)
[2019-02-05] MEDS ORDERED: PROPOFOL 200 MG/20 ML VIAL IV ONE (07:00)
[2019-02-05] MEDS ORDERED: raNITIdine HCL INJ 25 MG/ML VIAL ONE (07:00)
[2019-02-05] MEDS ORDERED: fentaNYL PATCH 75 MCG/HR 1 EA PATCH TD SCH (09:00)
--- NOTE | 2019-02-05 09:03 | US ---
Procedure: US ABDOMEN Exam Date: 02/05/2019 Ordering Provider: Nba Donnelly NP Clinical Indication: Right upper quadrant pain Comparison: 01/28/2019 right upper quadrant ultrasound Technique: Real-time ultrasonography was obtained over the abdominal viscera and entry level marketing representative images were recorded. Findings: The liver is enlarged measuring up to 18.6 cm. There is diffuse increased echogenicity of the liver consistent with fatty infiltration. There are no intrahepatic masses. There is no intrahepatic ductal dilatation. There are gallstones. There is borderline thickening of the gallbladder wall. No pericholecystic fluid. Kang's sign was not reported. The extrahepatic common duct is normal in size measuring 2 mm. The spleen is normal in size and contour. There is normal internal echogenicity of the spleen. There are no splenic masses. The visualized portions of the pancreas are normal. The aorta has a normal appearance. The inferior vena cava has a normal appearance. The right kidney measures 9.5 cm in bipolar length. Cortical thickness and echogenicity are normal. There are no masses, calculi, or hydronephrosis. The left kidney measures 9.3 cm in bipolar length. Cortical thickness and echogenicity are normal. There are no masses, calculi, or hydronephrosis. There is no ascites. Impression: 1. Cholelithiasis with borderline thickening of the gallbladder wall. Findings suspicious for acute cholecystitis. 2. Hepatomegaly and hepatic steatosis. Electronically signed by: Jim Kearney MD 02/05/2019 9:01 AM CDT
[2019-02-05] MEDS: SODIUM CHLORIDE 0.9% (FLUSH) 10 ML SYG IV PRN ×6 (09:15→18:39)
[2019-02-05] MEDS: PANTOPRAZOLE SODIUM IV 40 MG VIAL IV SCH (10:11)
[2019-02-05] MEDS ORDERED: BUPIVACAINE 0.25% W/EPI 50 ML VIAL INJ ONE (11:42)
[2019-02-05] MEDS ORDERED: HEPARIN SODIUM (PORCINE) 10,000 UNITS/ML VIAL ONE ×2 (11:43→13:21)
[2019-02-05] MEDS ORDERED: levoFLOXacin 500MG IV 500 MG in PREMIX BAG 1 BAG IVPB SCH (12:00)
[2019-02-05] MEDS ORDERED: levoFLOXacin 500MG IV 100 ML IVPB ONE (12:07)
[2019-02-05] MEDS ORDERED: ACETAMINOPHEN IV 1000MG 100 ML ONE (12:31)
[2019-02-05] MEDS ORDERED: MIDAZOLAM INJ 5 MG/5 ML VIAL ONE (12:31)
[2019-02-05] MEDS ORDERED: fentaNYL CITRATE INJ 50 MCG/ML AMP ONE (12:31)
[2019-02-05] MEDS ORDERED: ROCURONIUM BROMIDE 10 MG/ML VIAL ONE ×2 (12:32→14:16)
[2019-02-05] MEDS ORDERED: SUGAMMADEX SODIUM 200 MG/2 ML VIAL IV ONE (12:32)
[2019-02-05] MEDS ORDERED: levoFLOXacin 500MG IV 500 MG/100 ML BAG IVPB ONE (12:45)
[2019-02-05] MEDS ORDERED: ELECTROLYTE-A 1,000 ML IVS ONE (12:52)
[2019-02-05] MEDS ORDERED: KETAMINE HCL 100 MG/ML VIAL ONE (13:37)
[2019-02-05] MEDS ORDERED: HYDROmorphone HCL INJ 2 MG/ML VIAL ONE (14:28)
[2019-02-05] MEDS ORDERED: PROMETHAZINE SUPP 25 MG SUP PR PRN (14:59)
[2019-02-05] MEDS ORDERED: HYDROmorphone HCL INJ 2 MG/ML VIAL IV PRN (15:00)
[2019-02-05] MEDS: HYDROmorphone HCL INJ 2 MG/ML VIAL ONE ×3 (15:40→16:00)
[2019-02-05] MEDS ORDERED: SODIUM CHL 0.9% 50ML MIN-BAG+ 50 ML IVPB ONE ×4 (15:47→19:40)
--- NOTE | 2019-02-05 16:36 | OP ---
DATE OF PROCEDURE: 02/05/19 PREOPERATIVE DIAGNOSIS: 1. Right upper quadrant abdominal pain. 2. Cholelithiasis. 3. Fibrosis of the liver. POSTOPERATIVE DIAGNOSIS: 1. Cholelithiasis. 2. Chronic cholecystitis. 3. Fatty infiltration of the liver with fibrosis, pending pathology report. SURGICAL PROCEDURE: 1. Laparoscopic cholecystectomy. 2. Wedge biopsy right lobe of the liver. SURGEON: Fabian Everett M.D. COUNTER CASER: None. ANESTHESIA: General endotracheal by Anesthesia and local infiltration of 0.25% Marcaine with epinephrine. INDICATION FOR SURGERY: The patient is a 48 year-old female who has had chronic abdominal pain, who has undergone multiple workups without etiology being identified. She is said to have had a normal HIDA scan, ultrasound without stones and multiple endoscopies. She also is known to have a subcutaneous fluid collection that is likely secondary to what appears to have been an abdominoplasty performed in 2004. She has had this fluid collection drained multiple times, but it is well below the umbilicus. This case was discussed with her brand leader, Dr. Vanessa, and the films were reviewed with the radiologist, Dr. Mckay. At this point, she was brought to the Surgical Suite for right upper quadrant pain with nausea and cholelithiasis along with a probable diagnosis of liver fibrosis by liver consistency study done by a metal roofing mechanic. She was brought to the Surgical Suite today for cholecystectomy likely with cholangiography and wedge biopsy right lobe of the liver. FINDINGS AT TIME OF PROCEDURE: The cystic duct was tiny and I was unable to cannulate. The gallbladder had a thickened wall and upon opening it had multiple tiny stones. The liver showed fatty infiltration of the liver. There were some adhesions on the left side of the abdomen and then the pelvis. No other pathology was identified. DESCRIPTION OF PROCEDURE: After adequate general endotracheal anesthesia was obtained, the patient was prepped and draped in the usual sterile manner. A surgical time out was taken. Then a vertical incision was made above the umbilicus. Dissection was carried down through the skin and subcutaneous tissues and blunt dissection. The midline fascia was identified. Traction sutures were placed on the midline. A small incision was made in the midline fascia with some difficulty due to fibrosis. This could be longstanding mesh, but it was quite firm. Eventually we were able to dissect through and open the peritoneum bluntly. A 12 mm Reba trocar Reba trocar was introduced under direct vision. It was fixed in place with a 20 mL balloon. At this point, CO2 was insufflated until a pressure of 12 mmHg was reached and the abdomen was tympanitic in all four quadrants. When this was done, the laparoscope was introduced. The abdomen was inspected with the previously noted findings. The patient was then placed in reverse Trendelenburg position, turned to the left side. The upper abdominal ports were placed under direct vision. The gallbladder was then grasped, retracted anteriorly and pushed superiorly. The neck of the gallbladder was grasped and retracted laterally. The triangle of Calot was explored and the cystic duct and cystic artery identified and isolated. The cystic duct was hemoclipped once proximally. The cystic artery was hemoclipped twice proximally and once distally. A small incision was made in the cystic duct. The cholangiogram catheter was introduced through a separate stab wound in the right upper quadrant and multiple attempts were made to cannulate the cystic duct but this failed. So the cystic duct catheter was removed. The cystic duct was hemoclipped three times distally and divided. The cystic artery was divided sharply and the gallbladder was dissected free from the gallbladder bed of the liver without significant difficulty. It was placed in an EndoCatch bag and removed from the supraumbilical port site in the usual manner. When this was done, the subhepatic space and carmela hepatis was inspected. There was no bile leak or bleeding identified. At this point a wedge biopsy of the right lobe of the liver approximately 1.5 cm lateral to the falciform ligament was performed at the edge with sharp dissection with the Endoshears. When this was done, the specimen was removed from the supraumbilical port site under direct vision. Hemostasis was obtained with electrocautery with the cautery turned up to 50. When this was done, hemostasis was noted to be adequate. At this point, the subhepatic space, subphrenic space, the gallbladder bed of the liver and the biopsy site were irrigated with saline and inspected again. There was no bleeding identified. No bile leak was identified. So at this point the upper abdominal ports were removed under direct vision. Adequate hemostasis was noted. At this point, the CO2, the laparoscope and the supraumbilical port were removed. The supraumbilical port site fascia was approximated with two vertical [id number] sutures of #0 Vicryl. These were tightened and tied. The wounds were irrigated with saline. Skin edges were approximated with 4-0 Vicryl subcuticular sutures, benzoin and Steri-Strips. Sterile dressings were applied. The patient was awakened and taken to the Recovery Room in good and stable condition. Estimated blood loss was 50 mL. All sponge, needle and instrument counts were correct. #[id number] [facility]
[2019-02-05] MEDS ORDERED: HYDROmorphone HCL INJ 2 MG/ML VIAL IV ONE (18:32)
[2019-02-05] MEDS ORDERED: SODIUM CHLORIDE 0.9% 50ML 150 ML ONE (19:59)
[2019-02-05] MEDS ORDERED: diazePAM 2 MG TAB PO SCH (21:00)
[2019-02-05] MEDS: DULoxetine HCL 30 MG CAP PO SCH (21:34)
[2019-02-06] MEDS: KCL 20MEQ/D5 1/2NS 1,000 ML IVS PRN ×2 (00:01→08:43)
[2019-02-06] MEDS: HYDROmorphone HCL INJ 2 MG/ML VIAL IV PRN ×6 (00:22→14:09)
[2019-02-06] MEDS: PROMETHAZINE HCL INJ 25 MG in SODIUM CHLORIDE 0.9% 50ML 50 ML IVPB SCH ×3 (03:46→12:14)
[2019-02-06] MEDS: SODIUM CHLORIDE 0.9% (FLUSH) 10 ML SYG IV PRN (03:56)
[2019-02-06] MEDS ORDERED: PROMETHAZINE HCL INJ 25 MG/ML VIAL ONE ×2 (08:21→11:53)
[2019-02-06] MEDS ORDERED: SODIUM CHLORIDE 0.9% 50ML 50 ML ONE ×2 (08:22→11:54)
[2019-02-06] MEDS: DULoxetine HCL 30 MG CAP PO SCH (08:32)
[2019-02-06] MEDS ORDERED: METOCLOPRAMIDE HCL INJ 10 MG/2 ML VIAL IV ONE (08:59)
[2019-02-06] MEDS ORDERED: diazePAM 2 MG TAB PO SCH (09:00)
[2019-02-06] MEDS ORDERED: MAGNESIUM HYDROXIDE 30 ML UD PO ONE (09:01)
[2019-02-06] MEDS ORDERED: HYDROcodone 10MG/APAP 325MG 1 EA TAB PO PRN (09:13)
[2019-02-06] MEDS: PANTOPRAZOLE SODIUM IV 40 MG VIAL IV SCH (10:08)
[2019-02-06] MEDS: KETOROLAC TROMETHAMINE INJ 30 MG/ML VIAL IV SCH ×2 (10:30→16:17)
[2019-02-06] MEDS ORDERED: METOCLOPRAMIDE HCL 5 MG TAB PO SCH (11:30)
[2019-02-06 14:18] VITALS: BP 120/73; TEMP 98.1; O2SAT 91
--- NOTE | 2019-02-07 21:04 | DS ---
SUPERVISING PHYSICIAN: Roman Priest M.D. DISCHARGE DIAGNOSIS: 1. Chronic epigastric and right upper quadrant abdominal pain with concerns for acute cholecystitis. She also has a significant history of fluid collection in the anterior pelvic wall subcutaneous tissue. She has had I&D as well as drainage to this area multiple times. 2. Cholelithiasis with chronic cholecystitis. She is status post cholecystectomy per Dr. Fabian Everett, general surgeon. Postoperative day #1. 3. Chronic pain syndrome, presently on multiple narcotics being followed by Rodolfo Watson in [place]. 4. Fibromyalgia. 5. Hypertension. 6. Rheumatoid arthritis. 7. Chronic anxiety disorder. 8. Mild asthma with no present signs or symptoms of acute exacerbation. 9. Peripheral neuropathy. HISTORY OF PRESENT ILLNESS: This is a 48-year-old female patient that was in the hospital last week for recurring abdominal pain. At that time, it was felt that she had some gastroenteritis as well as concerns for an early cholecystitis. She was discharged but continued to have the abdominal pain. She called Dr. Everett's office, general surgeon, and due to her increased pain in her abdomen he recommended that she come to the Emergency Room. In the Emergency Room, she complained of nausea, vomiting and diarrhea since being discharged from the hospital last week. She also has required more pain medications than normal and she is on chronic narcotics due to her rheumatoid arthritis and fibromyalgia. She had been unable to keep anything down during the 24 hours prior to coming to the hospital. She was given Reglan, Demerol and promethazine in the Emergency Room. CBC electrolytes were basically unremarkable. Lactic acid was 2.1. Liver enzymes were within normal limits. Lipase was elevated at 55. She was admitted to the hospital. HOSPITAL COURSE: Initially she was placed on bowel rest and Dr. Everett saw her in consultation. She was given her Fentanyl patch as well as Dilaudid IV. She also got IV Ativan and some Phenergan IV for her nausea. She was also put on Pantoprazole for ulcer prophylaxis. An abdominal ultrasound was obtained and showed cholelithiasis as observed last week. It was felt like part of her abdominal pain may be due to this chronic cholecystitis. Although there are probably other issues going on with her abdominal pain, it was felt that having her gallbladder out would help with some of the pain, Dr. Vanessa, her carbon lamp cleaner in [place]. I spoke with Dr. Everett and he asked that her liver be biopsied during her surgery. She was taken down to the O. R. and laparoscopic cholecystectomy was performed. She had no intraoperative complications. She was kept overnight in the hospital for further evaluation and treatment. Postoperatively she had no complications. She was slowly started back on clear liquids and she was slowly transitioned to her scheduled oral medications. Dr. Everett felt like given her progress postoperatively, she could be discharged home in stable condition. Her lab work was basically unremarkable. LABORATORY: Amylase and lipase did normalize. RADIOLOGY: Her abdominal ultrasound showed: 1. Cholelithiasis with borderline thickening of the gallbladder wall. Findings suspicious for acute cholecystitis. 2. Hepatomegaly with hepatic steatosis. DISCHARGE PLAN: The patient will be discharged home in stable condition. She is to increase her activity as tolerated. She is to continue on a clear liquid and advance her diet to a low fat diet as tolerated. She is to call Dr. Everett's office on Saturday morning for a postoperative followup. She is also to followup with Shon Kincaid, her primary care provider, in 1 to [address] Rodolfo Watson for her pain management. She was given instructions for a no fat diet. She is to call Dr. Everett's office, Shon Kincaid's office or return to the hospital for any problems or complications. DISCHARGE MEDICATIONS: 1. Cymbalta. 2. Fentanyl patch. 3. Ambien. 4. Phenergan. 5. Linzess. 6. Diazepam. 7. B12 injection. 8. Adderall. 9. Estrogen. 10. Valacyclovir. 11. Hydrocodone. [id number] [facility]
[2019-02-08] MEDS ORDERED: REMOVE OLD PATCH TOP SCH (09:00)
== END 2019-02-06 16:10 | disposition home or self-care (01) | DRG 407 ==
LOC: ER 22:34 → MS 02-05 00:35 → OBSVTOIN 02-05 00:35
PROVIDERS: ADMIT Nurse Practitioner Acute Care; ATTEND Nurse Practitioner Acute Care
PROC: 0FT44ZZ Resection of Gallbladder, Percutaneous Endoscopic Approach (ICD-10-PCS; principal; 2019-02-05 13:00)
PROC: 0FC Hepatobiliary System and Pancreas, Extirpation (ICD-10-PCS; 2019-02-05 13:00)
DX: K80.12 Calculus of gallbladder with acute and chronic cholecystitis without obstruction (principal); G89.4 Chronic pain syndrome; M79.7 Fibromyalgia; M06.9 Rheumatoid arthritis, unspecified; I10 Essential (primary) hypertension; F41.9 Anxiety disorder, unspecified; J45.909 Unspecified asthma, uncomplicated; G62.9 Polyneuropathy, unspecified; K74.0 Hepatic fibrosis; K76.0 Fatty (change of) liver, not elsewhere classified; K66.0 Peritoneal adhesions (postprocedural) (postinfection); N73.6 Female pelvic peritoneal adhesions (postinfective); Z90.710 Acquired absence of both cervix and uterus; Z79.890 Hormone replacement therapy; Z79.891 Long term (current) use of opiate analgesic; Z79.899 Other long term (current) drug therapy; Z91.040 Latex allergy status; Z88.5 Allergy status to narcotic agent; Z88.0 Allergy status to penicillin; Z88.8 Allergy status to other drugs, medicaments and biological substances; Z80.9 Family history of malignant neoplasm, unspecified

== ENCOUNTER 2019-06-28 00:47 | Emergency (ER) | payer SELFPAY ==
[2019-06-28] MEDS ORDERED: SODIUM CHLORIDE 0.9% (FLUSH) 10 ML SYG IV PRN (01:11)
--- NOTE | 2019-06-28 01:21 | ED.PDOC ---
History of Present Illness - General Chief Complaint: Syncope/Near Syncope Stated Complaint: left shoulder pain, passed out hit head Time Seen by Provider: 06/28/19 01:10 Source: patient, RN notes reviewed, Vital Signs reviewed, EMS notes reviewed, family, EMS Exam Limitations: no limitations - History of Present Illness Initial Comments: Pt is a 48 y/o WF who presents with c/o syncope. Pt got up to go to the bathroom and was feeling dizzy. Pt started to urinate and them syncopized and hit her head. She awoke almost immediately and noted right shoulder pain and arm numbness. Pt does not have chest pain. Timing/Prior Episodes: no prior history, single episode today Precipitating Factors: lightheadedness, nausea Context: sitting, other - urinating Loss of Consciousness: brief (seconds) Current Symptoms: back to normal, headache, nausea Allergies/Adverse Reactions: Allergies Latex Allergy (Verified 01/28/19 15:38) Morphine Allergy (Verified 01/28/19 15:38) Ondansetron [From Zofran] Allergy (Verified 06/28/19 00:57) Pregabalin [From Lyrica] Allergy (Verified 02/05/19 12:32) Diphenhydramine [From Benadryl] Adverse Reaction (Verified 06/28/19 00:57) Penicillin G Adverse Reaction (Verified 06/28/19 00:57) Home Medications: Ambulatory Orders Duloxetine HCl [Cymbalta] 60 mg PO BID 12/16/16 Amphetamine-Dextroamphetamine [Adderall 20 mg] 1 tab PO TID PRN 01/28/19 Cyanocobalamin [B-12 Compliance Injection] 1,000 mcg IJ MONTHLY 01/28/19 Diazepam 1 mg PO QAM 01/28/19 Diazepam 2 mg PO BEDTIME 01/28/19 Estrogens, Conjugated [Premarin] 1.25 mg PO BEDTIME 01/28/19 HYDROcodone 10MG/APAP 325MG [[place] 10/325] 1 ea PO Q6H PRN 01/28/19 Linaclotide [Linzess] 145 mcg PO TID PRN 01/28/19 Promethazine Tab [Phenergan Tablet] 25 mg PO Q8HRS PRN 01/28/19 Valacyclovir HCl 1 gm PO TID PRN 01/28/19 Zolpidem Tartrate [Ambien] 10 mg PO BEDTIME 01/28/19 fentaNYL PATCH 75 MCG/HR [Duragesic Patch 75 MCG/HR] 75 mcg TD Q72H 01/28/19 Review of Systems - Review of Systems Constitutional: States: malaise, weakness. Denies: fever EENTM: States: nose pain. Denies: blurred vision, throat swelling, mouth swelling Respiratory: Denies: cough, orthopnea, short of breath, wheezing Cardiology: States: palpitations, syncope. Denies: chest pain Gastrointestinal/Abdominal: States: nausea. Denies: abdominal pain, constipation, diarrhea, vomiting Genitourinary: States: no symptoms reported Musculoskeletal: States: other - left shoulder/scapula pain with left arm numbness. Skin: States: no symptoms reported Neurological: States: no symptoms reported - lef tarm, numbness Endocrine: States: no symptoms reported Hematologic/Lymphatic: States: no symptoms reported All other Systems: Reviewed and Negative Past Medical History (General) - Patient Medical History Hx Seizures: No Hx Stroke: No Hx Dementia: No Hx Asthma: No Hx of COPD: No Hx Cardiac Disorders: No Hx Congestive Heart Failure: No Hx Pacemaker: No Hx Hypertension: Yes Hx Thyroid Disease: No Hx Diabetes: No Hx Gastroesophageal Reflux: No Hx Renal Disease: No Hx Cancer: No Hx of HIV: No Hx Hepatitis C: No Hx MRSA: No Surgical History: cholecystectomy, Hysterectomy - Vaccination History Hx Tetanus, Diphtheria Vaccination: Yes Hx Influenza Vaccination: No Hx Pneumococcal Vaccination: No - Social History Hx Tobacco Use: No Hx Alcohol Use: No Hx Substance Use: No Hx Substance Use Treatment: No Hx Depression: No Hx Physical Abuse: No Hx Emotional Abuse: No - Female History Patient : No Physical Exam - Physical Exam General Appearance: Alert, Anxious, Well Developed, Well Hydrated, Well Nourished Eyes, Ears, Nose, Throat Exam: PERRL/EOMI, normal ENT inspection, pharynx normal, other - no septal hematoma Neck: non-tender, full range of motion, supple, normal inspection Cardiovascular/Respiratory: regular rate, rhythm, no M/R/G, normal peripheral pulses, no JVD, normal breath sounds, no respiratory distress Gastrointestinal/Abdominal: normal bowel sounds, distended, tenderness - diffusely Back Exam: normal inspection, no CVA tenderness, no vertebral tenderness Extremity: normal range of motion, non-tender, normal inspection Mental Status: alert, oriented x 3, 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 Shoulder/arm pain resolved after PO Ultram. Second cardiac enzymes normal. I believe this to be micturition syncope coupled with hypotension from BP meds. Pt's BP now 121/74. Plan d/c home and f/u with pcp. I d/w pt the plan of care and she voices understanding and agreement with the plan of care. Tommy Ceballos M.D. #[id number] - Results/Orders Results/Orders: 06/28/19 01:11 IV Care:Saline Lock per Protoc QSHIFT Telemetry ONCE Sodium Chloride 0.9% (Flush) [Saline Flush Syringe] 3 ml IV PRN PRN 06/28/19 01:15 EKG STAT 06/28/19 04:30 CARDIAC ENZYME GROUP Stat 06/28/19 09:00 Pulse Ox Daily Laboratory Results - last 24 hr 06/28/19 06/28/19 01:11 04:30 WBC 19.5 H RBC 4.15 L Hgb 12.7 Hct 38.1 MCV 91.8 MCH 30.6 MCHC 33.3 RDW 13.0 Plt Count 419 H MPV 8.6 Absolute Neuts (auto) 16.00 H Absolute Lymphs (auto) 2.20 Absolute Monos (auto) 1.00 H Absolute Eos (auto) 0.10 Absolute Basos (auto) 0.20 H Neutrophils % 82.3 H Lymphocytes % 11.4 L Monocytes % 5.2 Eosinophils % 0.3 L Basophils % 0.8 PT 9.9 INR 0.99 PTT (SP) 24.3 Sodium 135 Potassium 4.6 Chloride 102 Carbon Dioxide 21 Anion Gap 16.6 BUN 26 H Creatinine 1.65 H BUN/Creatinine Ratio 15.8 Random Glucose 149 H Serum Osmolality 277.7 Calcium 9.0 Magnesium 1.5 L Creatine Kinase 21 L CK-MB (CK-2) 0.7 0.8 CK-MB (CK-2) % Not Reportable Troponin I < 0.02 < 0.02 - EKG/XRAY/CT Comments: NSR @ 91 bpm, NAD, possible ant infarct, age indeterminate, abnormal ekg. Departure - Departure Clinical Impression: Micturition syncope, Blood pressure abnormally low Disposition: Discharge to Home or Self Care Condition: Good Departure Forms: ED Discharge - Pt. Copy, Patient Portal Self Enrollment Instructions: DI for Syncope in Adults (Fainting) Referrals: SINAI BARAHONA IV, TOPOGRAPHIC COMPUTATOR [Family Provider] - 1-2 Weeks Home Medications: Ambulatory Orders Duloxetine HCl [Cymbalta] 60 mg PO BID 12/16/16 Amphetamine-Dextroamphetamine [Adderall 20 mg] 1 tab PO TID PRN 01/28/19 Cyanocobalamin [B-12 Compliance Injection] 1,000 mcg IJ MONTHLY 01/28/19 Diazepam 1 mg PO QAM 01/28/19 Diazepam 2 mg PO BEDTIME 01/28/19 Estrogens, Conjugated [Premarin] 1.25 mg PO BEDTIME 01/28/19 HYDROcodone 10MG/APAP 325MG [[place] 10/325] 1 ea PO Q6H PRN 01/28/19 Linaclotide [Linzess] 145 mcg PO TID PRN 01/28/19 Promethazine Tab [Phenergan Tablet] 25 mg PO Q8HRS PRN 01/28/19 Valacyclovir HCl 1 gm PO TID PRN 01/28/19 Zolpidem Tartrate [Ambien] 10 mg PO BEDTIME 01/28/19 fentaNYL PATCH 75 MCG/HR [Duragesic Patch 75 MCG/HR] 75 mcg TD Q72H 01/28/19
[2019-06-28] MEDS ORDERED: PROMETHAZINE HCL INJ 25 MG in SODIUM CHLORIDE 0.9% 50ML 50 ML IVPB ONE (01:22)
[2019-06-28] MEDS ORDERED: SODIUM CHLORIDE 0.9% 50ML 50 ML ONE (01:28)
[2019-06-28] MEDS ORDERED: PROMETHAZINE HCL INJ 25 MG/ML VIAL ONE (01:28)
[2019-06-28] MEDS ORDERED: MAGNESIUM SULFATE INJ 1 GM in SODIUM CHLORIDE 0.9% 100ML 100 ML IVPB ONE (02:23)
--- NOTE | 2019-06-28 02:25 | RAD ---
EXAM: Single view chest. INDICATION: Syncope. COMPARISON: Chest x-ray: 11/11/2017. FINDINGS: Cardiac silhouette: Unremarkable. Thea: Unremarkable. Lobar consolidation: None. Pleural effusion: None. Pneumothorax: None. Other: None. Bones: Unremarkable. Other: None. IMPRESSION: 1. No acute cardiopulmonary process. Electronically signed by: Seth Ding MD 06/28/2019 2:23 AM CDT
[2019-06-28] MEDS ORDERED: MAGNESIUM SULFATE INJ 1 GM/2 ML VIAL ONE (02:31)
[2019-06-28] MEDS ORDERED: SODIUM CHLORIDE 0.9% 100ML 100 ML IVPB ONE (02:31)
[2019-06-28] MEDS ORDERED: traMADol HCL 50 MG TAB PO ONE (02:45)
[2019-06-28] MEDS ORDERED: traMADol HCL 50 MG TAB ONE (02:45)
[2019-06-28 04:05] VITALS: O2SAT 95
[2019-06-28 05:06] VITALS: BP 121/71
[2019-06-28 05:39] VITALS: TEMP 97.2
== END 2019-06-28 05:35 | disposition home or self-care (01) ==
LOC: ER 00:47
DX: R55 Syncope and collapse (principal); I95.9 Hypotension, unspecified; R94.31 Abnormal electrocardiogram [ECG] [EKG]; M25.511 Pain in right shoulder; R20.0 Anesthesia of skin; R51 Headache; R11.0 Nausea; I10 Essential (primary) hypertension; Z79.899 Other long term (current) drug therapy; Z91.040 Latex allergy status; Z88.5 Allergy status to narcotic agent; Z88.8 Allergy status to other drugs, medicaments and biological substances; Z88.0 Allergy status to penicillin
CPT/HCPCS: 71045; 80048; 82550; 82553; 84484; 85025; 85610; 85730; A4216; J2550; J3475; J7050

== ENCOUNTER 2019-08-08 22:44 | Emergency (ER) | payer SELFPAY ==
[2019-08-08] MEDS ORDERED: SODIUM CHLORIDE 0.9% 1000ML 1,000 ML IVS ONE ×2 (22:58→23:30)
[2019-08-08] MEDS ORDERED: fentaNYL CITRATE INJ 50 MCG/ML AMP IV ONE (22:58)
--- NOTE | 2019-08-08 23:04 | ED.PDOC ---
History of Present Illness - General Chief Complaint: Abdominal Pain Time Seen by Provider: 08/08/19 22:47 - History of Present Illness Initial Comments: pt is a 48 y.o. w/ pmh of fibromyalgia, htn, diverticulitis who presents from home c/o abdominal pain. Reports having pain for "months" since her cholecystectomy in January. Pain is primarily epigastric but also generalized in nature. Associated with diarrhea which has been on going for months as well. Denies any recent antibiotic use. Associated with nausea without vomiting. EMS reports patient's BP was in the 80s and that she was in her bath tub due to the severe diarrhea she was having. Reported possible blood in stool as well. Review of Systems - Review of Systems Constitutional: States: malaise, weakness EENTM: States: no symptoms reported Respiratory: States: no symptoms reported Cardiology: States: no symptoms reported Gastrointestinal/Abdominal: States: abdominal pain, diarrhea Genitourinary: States: no symptoms reported Musculoskeletal: States: no symptoms reported Skin: States: no symptoms reported Neurological: States: no symptoms reported Endocrine: States: no symptoms reported All other Systems: Reviewed and Negative Past Medical History (General) - Patient Medical History Hx Seizures: No Hx Stroke: No Hx Dementia: No Hx Asthma: No Hx of COPD: No Hx Cardiac Disorders: No Hx Congestive Heart Failure: No Hx Pacemaker: No Hx Hypertension: Yes Hx Thyroid Disease: No Hx Diabetes: No Hx Gastroesophageal Reflux: No Hx Renal Disease: No Hx Cancer: No Hx of HIV: No Hx Hepatitis C: No Hx MRSA: No - Vaccination History Hx Tetanus, Diphtheria Vaccination: Yes Hx Influenza Vaccination: No Hx Pneumococcal Vaccination: No - Social History Hx Tobacco Use: No Hx Alcohol Use: No Hx Substance Use: No Hx Substance Use Treatment: No Hx Depression: No Hx Physical Abuse: No Hx Emotional Abuse: No - Female History Patient : No Family Medical History - Family History Father Living Status: Hx Family Cancer: Yes Mother Family History: Unknown Physical Exam - Physical Exam General Appearance: Obvious distress, Ill Appearing, Obese Eyes, Ears, Nose, Throat Exam: PERRL/EOMI, normal ENT inspection Neck: full range of motion, supple Respiratory: chest non-tender, lungs clear, normal breath sounds Cardiovascular/Chest: no edema, tachycardia Gastrointestinal/Abdominal: distended, guarding, tenderness Extremity: non-tender, normal inspection Neurologic: no motor/sensory deficits, alert, normal mood/affect, oriented x 3 Skin Exam: warm/dry, pallor Lymphatic: no adenopathy Progress - Progress Progress: 08/08/19 23:06 Pt w/ h/o fibromyalgia, htn, here w/ generalized abdominal pain that apparently has been on going for months, but acutely worsened tonight. Was seen one month ago for similar symptoms and diagnosed with micturition syndrome. BP is slightly hypotensive. Plan for abd labs, CT, EKG treat pain, reassess. 08/08/19 23:58 BP improved to the 90s systolic after IV fluids. Lactic acidosis of 3.8 with leukocytosis of 23. test cell technician reports patient had episode of hematemesis while in scanner. Will start on protonix. She is on broad spectrum antibiotics. CT still pending. Will arrange transport to [facility] due to her GI bleed/sepsis. - Results/Orders Results/Orders: 08/08/19 22:59 Hold Metformin x 48Hrs [id number] 08/08/19 23:00 EKG .ONCE 08/09/19 00:04 Catheter:Butcher QSHIFT Laboratory Results - last 24 hr 08/08/19 08/08/19 08/08/19 11:08 11:08 11:08 WBC 23.2 H* RBC 4.71 Hgb 14.3 Hct 43.7 MCV 92.9 MCH 30.4 MCHC 32.7 L RDW 13.3 Plt Count 591 H MPV 8.3 Absolute Neuts (auto) 16.60 H Absolute Lymphs (auto) 5.20 H Absolute Monos (auto) 1.00 H Absolute Eos (auto) 0.20 Absolute Basos (auto) 0.10 Neutrophils % 71.7 Neutrophils % (Manual) 68.0 Lymphocytes % 22.5 Lymphocytes % (Manual) 20.0 Monocytes % 4.4 Monocytes % (Manual) 3.0 Eosinophils % 0.9 L Basophils % 0.5 Band Neutrophils 9.0 H Platelet Estimate Increased Normal RBC Morphology Normal rbc morph Sodium 140 Potassium 4.1 Chloride 104 Carbon Dioxide 20 L Anion Gap 20.1 H BUN 18 Creatinine 1.54 H BUN/Creatinine Ratio 11.7 Random Glucose 174 H Serum Osmolality 285.5 Lactic Acid 3.8 H* Calcium 8.2 L Total Bilirubin 0.2 AST 35 ALT 24 Alkaline Phosphatase 90 Serum Total Protein 7.8 Albumin 3.4 Globulin 4.4 H Albumin/Globulin Ratio 0.8 L Lipase 93 H Urine Color Urine Appearance Urine pH Ur Specific [place] Urine Protein Urine Glucose (UA) Urine Ketones Urine Blood Urine Nitrite Urine Bilirubin Urine Urobilinogen Ur Leukocyte Esterase Urine RBC Urine WBC Ur Epithelial Cells Amorphous Sediment Urine Bacteria Urine Mucus 08/09/19 00:04 WBC RBC Hgb Hct MCV MCH MCHC RDW Plt Count MPV Absolute Neuts (auto) Absolute Lymphs (auto) Absolute Monos (auto) Absolute Eos (auto) Absolute Basos (auto) Neutrophils % Neutrophils % (Manual) Lymphocytes % Lymphocytes % (Manual) Monocytes % Monocytes % (Manual) Eosinophils % Basophils % Band Neutrophils Platelet Estimate Normal RBC Morphology Sodium Potassium Chloride Carbon Dioxide Anion Gap BUN Creatinine BUN/Creatinine Ratio Random Glucose Serum Osmolality Lactic Acid Calcium Total Bilirubin AST ALT Alkaline Phosphatase Serum Total Protein Albumin Globulin Albumin/Globulin Ratio Lipase Urine Color Yellow Urine Appearance Sl cloudy Urine pH 6.5 Ur Specific [place] 1.010 Urine Protein 100 H Urine Glucose (UA) 100 H Urine Ketones Negative Urine Blood Trace-intact H Urine Nitrite Negative Urine Bilirubin Negative Urine Urobilinogen 0.2 Ur Leukocyte Esterase Negative Urine RBC 1-3 Urine WBC 3-5 H Ur Epithelial Cells 10-20 Amorphous Sediment 1+ Urine Bacteria 1+ Urine Mucus Moderate CT a/p IMPRESSION: 1. Suspect diffuse colitis without evidence of bowel perforation or intra-abdominal abscess. No mechanical bowel obstruction. 2. Diffuse hepatic fatty infiltration. Hepatomegaly. 3. Suspect 2 small foci of possible splenic infarction. 4. Remote appearing right lower renal pole scar. Possible small scar in the mid right kidney. - EKG/XRAY/CT EKG: nonspecific ST T wave Chg Comments: Sinus tachy @112, normal axis, prolonged QT, No STEMI Departure - Departure Clinical Impression: Hematemesis, Generalized abdominal pain, Severe sepsis Disposition: Transfer to Hospital Condition: Serious Departure Forms: ED Discharge - Pt. Copy, Patient Portal Self Enrollment Referrals: Rodolfo Monterroso MD [Primary Care Provider] - 1-2 Weeks Home Medications: Ambulatory Orders RX: Duloxetine HCl [Cymbalta] 60 mg PO BID 12/16/16 RX: Amphetamine-Dextroamphetamine [Adderall 20 mg] 1 tab PO TID PRN 01/28/19 RX: Cyanocobalamin [B-12 Compliance Injection] 1,000 mcg IJ MONTHLY 01/28/19 RX: Diazepam 1 mg PO QAM 01/28/19 RX: Diazepam 2 mg PO BEDTIME 01/28/19 RX: Estrogens, Conjugated [Premarin] 1.25 mg PO BEDTIME 01/28/19 RX: HYDROcodone 10MG/APAP 325MG [[place] 10/325] 1 ea PO Q6H PRN 01/28/19 RX: Linaclotide [Linzess] 145 mcg PO TID PRN 01/28/19 RX: Promethazine Tab [Phenergan Tablet] 25 mg PO Q8HRS PRN 01/28/19 RX: Valacyclovir HCl 1 gm PO TID PRN 01/28/19 RX: Zolpidem Tartrate [Ambien] 10 mg PO BEDTIME 01/28/19 RX: fentaNYL PATCH 75 MCG/HR [Duragesic Patch 75 MCG/HR] 75 mcg TD Q72H 01/28/19
[2019-08-08] MEDS ORDERED: PIPERACILLIN/TAZOBACTAM 4.5 GM in SODIUM CHLORIDE 0.9% 100ML 100 ML IVPB ONE (23:18)
[2019-08-08] MEDS ORDERED: VANCOMYCIN HCL INJ 1,000 MG, VANCOMYCIN HCL INJ 500 MG in SODIUM CHLORIDE 0.9% 250ML 25... IVPB ONE (23:18)
[2019-08-08] MEDS ORDERED: VANCOMYCIN HCL INJ 500 MG VIAL ONE (23:41)
[2019-08-08] MEDS ORDERED: VANCOMYCIN HCL INJ 1,000 MG VIAL IVPB ONE (23:41)
[2019-08-08] MEDS ORDERED: PIPERACILLIN/TAZOBACTAM 2.25 GM VIAL IVPB ONE (23:41)
[2019-08-08] MEDS ORDERED: SODIUM CHLORIDE 0.9% 100ML 100 ML IVPB ONE (23:42)
[2019-08-08] MEDS ORDERED: SODIUM CHLORIDE 0.9% 250ML 250 ML ONE (23:42)
[2019-08-08] MEDS ORDERED: PANTOPRAZOLE SODIUM IV 40 MG VIAL IV ONE (23:55)
[2019-08-08] MEDS ORDERED: METOCLOPRAMIDE HCL INJ 10 MG/2 ML VIAL IV ONE (23:57)
--- NOTE | 2019-08-09 00:03 | RAD ---
EXAM: Single view chest. INDICATION: Evaluate for free air. COMPARISON: Chest x-ray: 06/28/2019. FINDINGS: Cardiac silhouette: Unremarkable. Thea: Unremarkable. Lobar consolidation: None. Pleural effusion: None. Pneumothorax: None. Other: No intraperitoneal free air. Bones: Unremarkable. Other: None. IMPRESSION: No intraperitoneal free air. No acute cardiopulmonary process. Electronically signed by: Seth Ding MD 08/09/2019 12:02 AM CDT
[2019-08-09 00:10] VITALS: BP 105/74; TEMP 96.6; O2SAT 98
--- NOTE | 2019-08-09 00:54 | CT ---
EXAMINATION: POSTCONTRAST ABDOMEN AND PELVIC CT EXAMINATION. REFERRAL DIAGNOSIS: Diffuse abdominal pain. COMPARISONS: Compared to the abdomen and pelvic CT examination of January 28, 2019. PROCEDURE: Using low-dose helical technique, thin section axial images were performed through the abdomen and pelvis after the uncomplicated intravenous administration of nonionic iodinated contrast material. No oral contrast was administered. FINDINGS: Remote cholecystectomy since the comparison examination of January 28, 2019. Diffuse hepatic fatty infiltration with hepatomegaly. Greatest coronal dimension of the right hepatic lobe equals 22.3 cm. 11 mm focal cyst in the anterior medial right hepatic lobe versus focal benign MARILUZ. 2 small wedge-shaped peripheral hypodensities in the spleen possibly representing sequela of remote infarction. Suspect scar in the right lower renal pole. Possible small scar in the mid lateral right kidney and in the medial lateral left kidney. SPECT small scar in the left lower renal pole. The liver, spleen, pancreas, adrenal glands, kidneys, renal collecting systems, ureters and unenhanced urinary bladder are otherwise normal. The fluid-filled distended unenhanced stomach appears grossly normal. Numerous loops of fluid-filled mildly inflamed appearing colon extending to the rectosigmoid junction suspicious for colitis. No evidence of diverticulitis, appendicitis, mechanical small bowel obstruction or extraluminal bowel gas. No retroperitoneal hemorrhage or evidence of psoas muscle abscess. Mild atherosclerotic calcification in the infrarenal abdominal aorta with greatest AP diameter equaling 13 mm. Bones are normal for age. Lung bases are normal. IMPRESSION: 1. Suspect diffuse colitis without evidence of bowel perforation or intra-abdominal abscess. No mechanical bowel obstruction. 2. Diffuse hepatic fatty infiltration. Hepatomegaly. 3. Suspect 2 small foci of possible splenic infarction. 4. Remote appearing right lower renal pole scar. Possible small scar in the mid right kidney. This exam was performed according to our departmental dose-optimization program, which includes automated exposure control, adjustment of the mA and/or kV according to patient size and/or use of iterative reconstruction technique. Electronically signed by: Edi West MD 08/09/2019 12:52 AM CDT
== END 2019-08-09 00:35 | disposition short-term general hospital (02) ==
LOC: ER 22:44
DX: A41.9 Sepsis, unspecified organism (principal); R65.20 Severe sepsis without septic shock; K92.0 Hematemesis; R10.84 Generalized abdominal pain; I10 Essential (primary) hypertension; M79.7 Fibromyalgia; D72.829 Elevated white blood cell count, unspecified; R16.0 Hepatomegaly, not elsewhere classified
CPT/HCPCS: 71045; 74177; 80053; 81001; 83605; 83690; 85025; 87040; 93005; J2543; J2765; J3010; J3370; J7030; J7050

== ENCOUNTER 2019-09-07 04:34 | Emergency (ER) | payer BC, SELFPAY ==
[2019-09-07] MEDS ORDERED: SODIUM CHLORIDE 0.9% 1000ML 1,000 ML IVS ONE (05:06)
[2019-09-07] MEDS ORDERED: SODIUM CHLORIDE 0.9% (FLUSH) 10 ML SYG IV PRN (05:06)
[2019-09-07] MEDS ORDERED: DICYCLOMINE HCL INJ 20 MG/2 ML AMP IM ONE (05:08)
[2019-09-07] MEDS ORDERED: PROMETHAZINE HCL INJ 12.5 MG in SODIUM CHLORIDE 0.9% 50ML 50 ML IVPB ONE ×2 (05:09→07:12)
[2019-09-07] MEDS ORDERED: PROMETHAZINE HCL INJ 25 MG/ML VIAL ONE ×2 (05:32→07:25)
[2019-09-07] MEDS ORDERED: SODIUM CHLORIDE 0.9% 50ML 50 ML ONE ×2 (05:32→07:25)
--- NOTE | 2019-09-07 06:27 | ED.PDOC ---
History of Present Illness - History of Present Illness Initial Comments: c/o R sided abdominal pain , 5/10 sharp , radiates to back associated with distension , nausea and vomiting started x1 day , no diarrhea or constipation Pain Radiation: back Quality: moderate, sharpness Improving Factors: nothing Worsening Factors: nothing <Tima AYOUB Last Filed: 09/07/19 06:38> <JOHN ANTHONY - Last Filed: 09/07/19 12:31> - General Chief Complaint: Abdominal Pain Stated Complaint: abdomen pain/distention since yesterday Time Seen by Provider: 09/07/19 05:06 Review of Systems - Review of Systems Constitutional: States: no symptoms reported EENTM: States: no symptoms reported Respiratory: States: no symptoms reported Gastrointestinal/Abdominal: States: see HPI Genitourinary: States: no symptoms reported Musculoskeletal: States: no symptoms reported Skin: States: no symptoms reported Neurological: States: no symptoms reported <Tima AYOUB Filed: 09/07/19 06:38> Past Medical History (General) - Patient Medical History Hx Seizures: No Hx Stroke: No Hx Dementia: No Hx Asthma: No Hx of COPD: No Hx Cardiac Disorders: No Hx Congestive Heart Failure: No Hx Pacemaker: No Hx Hypertension: Yes Hx Thyroid Disease: No Hx Diabetes: No Hx Gastroesophageal Reflux: No Hx Renal Disease: No Hx Cancer: No Hx of HIV: No Hx Hepatitis C: No Hx MRSA: No Surgical History: cholecystectomy, Hysterectomy - Vaccination History Hx Tetanus, Diphtheria Vaccination: Yes - 2018 Hx Influenza Vaccination: No Hx Pneumococcal Vaccination: No - Social History Hx Tobacco Use: No Hx Chewing Tobacco Use: No Hx Alcohol Use: No Hx Substance Use: No Hx Substance Use Treatment: No Hx Depression: No Hx Physical Abuse: No Hx Emotional Abuse: No Hx Suspected Abuse: No - Female History Patient : No <Tima AYOUB Last Filed: 09/07/19 06:38> Family Medical History - Family History Mother Family History: Unknown Father Living Status: Hx Family Cancer: Yes <Tima AYOUB Last Filed: 09/07/19 06:38> Physical Exam - Physical Exam General Appearance: Alert, Comfortable Eyes, Ears, Nose, Throat Exam: normal ENT inspection Neck: non-tender, full range of motion, supple, normal inspection Respiratory: chest non-tender, lungs clear, normal breath sounds, no respiratory distress, no accessory muscle use Cardiovascular/Chest: regular rate, rhythm, no edema, no gallop, no JVD, no murmur Gastrointestinal/Abdominal: no organomegaly, no pulsatile mass, distended, tenderness Back Exam: normal inspection, no CVA tenderness, no vertebral tenderness Extremity: normal range of motion, non-tender, normal inspection, no pedal edema Neurologic: no motor/sensory deficits, alert, normal mood/affect, oriented x 3 Skin Exam: normal color Lymphatic: no adenopathy <Tima AYOUB - Last Filed: 09/07/19 06:38> Progress - Progress Progress: 09/07/19 06:28 09/07/19 05:06 Sodium Chloride 0.9% (Flush) [Saline Flush Syringe] 10 ml IV PRN PRN 09/07/19 05:08 Hold Metformin x 48Hrs [id number] IV Care:Saline Lock per Protoc QSHIFT Abdomen/Pelvis w/Contrast [CT] Stat EKG Assessment ONCE 09/07/19 05:09 CLOSTRIDIUM DIFFICILE AG/TOXIN Stat 09/07/19 05:15 EKG STAT 09/07/19 06:19 URINALYSIS Stat Laboratory Results WBC 12.5 K/mm3 (4.8-10.8) H 09/07/19 05:38 RBC 3.44 M/mm3 (4.20-5.40) L 09/07/19 05:38 Hgb 10.5 gm/dL (12.0-16.0) L 09/07/19 05:38 Hct 31.3 % (36.0-47.0) L 09/07/19 05:38 MCV 91.0 fl (81.0-99.0) 09/07/19 05:38 MCH 30.6 pg (27.0-31.0) 09/07/19 05:38 MCHC 33.7 g/dL (33.0-37.0) 09/07/19 05:38 RDW 12.9 % (11.5-14.5) 09/07/19 05:38 Plt Count 274 K/mm3 (130-400) 09/07/19 05:38 MPV 8.1 fl (7.40-10.4) 09/07/19 05:38 Absolute Neuts (auto) 8.30 K/uL (1.8-6.8) H 09/07/19 05:38 Absolute Lymphs (auto) 3.20 K/uL (1.0-3.4) 09/07/19 05:38 Absolute Monos (auto) 0.70 K/uL (0.2-0.8) 09/07/19 05:38 Absolute Eos (auto) 0.30 K/uL (0.0-0.4) 09/07/19 05:38 Absolute Basos (auto) 0.10 K/uL (0.0-0.1) 09/07/19 05:38 Neutrophils % 65.8 % (42.0-78.0) 09/07/19 05:38 Lymphocytes % 25.6 % (20.0-50.0) 09/07/19 05:38 Monocytes % 5.6 % (2.0-9.0) 09/07/19 05:38 Eosinophils % 2.3 % (1.0-5.0) 09/07/19 05:38 Basophils % 0.7 % (0.0-2.0) 09/07/19 05:38 Sodium 134 mmol/L (135-145) L 09/07/19 05:38 Potassium 4.1 mmol/L (3.6-5.0) 09/07/19 05:38 Chloride 99 mmol/L (101-111) L 09/07/19 05:38 Carbon Dioxide 19 mmol/L (21-31) L 09/07/19 05:38 Anion Gap 20.1 (12-18) H 09/07/19 05:38 BUN 15 mg/dL (7-18) 09/07/19 05:38 Creatinine 1.16 mg/dL (0.6-1.3) 09/07/19 05:38 BUN/Creatinine Ratio 12.9 (10-20) 09/07/19 05:38 Random Glucose 142 mg/dL (70-105) H 09/07/19 05:38 Serum Osmolality 271.5 mOsm/L (275-295) L 09/07/19 05:38 Calcium 8.8 mg/dL (8.4-10.2) 09/07/19 05:38 Total Bilirubin 0.3 mg/dL (0.2-1.0) 09/07/19 05:38 Direct Bilirubin < 0.1 mg/dL (0-0.2) 09/07/19 05:38 Indirect Bilirubin 0.2 mg/dL (0.2-0.8) 09/07/19 05:38 AST 46 IU/L (10-42) H 09/07/19 05:38 ALT 33 IU/L (10-60) 09/07/19 05:38 Alkaline Phosphatase 108 IU/L (42-121) 09/07/19 05:38 Troponin I < 0.02 ng/mL (0.01-0.05) 09/07/19 05:38 Serum Total Protein 7.9 gm/dL (6.4-8.2) 09/07/19 05:38 Albumin 3.6 g/dl (3.2-5.5) 09/07/19 05:38 Lipase 49 U/L (22-51) 09/07/19 05:38 - Results/Orders Results/Orders: Pt care transferred to Dr - EKG/XRAY/CT EKG: Sinus, nonspecific ST T wave Chg <Tima AYOUB - Last Filed: 09/07/19 06:38> - Progress Progress: 09/07/19 07:[address] AYOUB. Labs have Been Reviewed As Well As CT Evaluation. This CT Evaluation Was Compared to That Done on 12/09/18. There Is Evidence of a Fluid Collection in the Abdominal Wall That Is of Unknown Significance.the patient is continuing to have some vomiting and promethazine as been ordered. 09/07/19 07:43 I discussed results with the patient. She states that she has had multiple I&D's of these fluid collections and cultures have been sterile. She is followed by Dr. Vanessa for gastroenterology as well as Dr. LOVING, general surgery. The exam of her abdomen does reveal some distention as well as tympany to percussion. There is no evidence of erythema or obvious pockets of fluid collection based on palpation. 09/07/19 08:24 the patient is resting more comfortably now following fentanyl. The patient is feeling better now and blood pressure has improved. 09/07/19 08:59 Dr. Loving called back and has agreed to consult on the patient and examine her. We will be able to come up with the plan for her based on his evaluation. 09/07/19 09:55 we're still awaiting surgical consultation 09/07/19 11:42 Dr. Loving has evaluated and states that we should talk to Dr. Vanessa to make sure that he does not want any other orders carried out. She does not have any signs of obstruction. There is stool noted throughout her colon and she is not currently taking linzess. Dr. Loving is also speaking to the hospitalist to have the patient observed if she cannot go home. 09/07/19 11:43 call put out [address] Dr. Vanessa's answering service. Awaiting call back. 09/07/19 12:26 Dr. Vanessa has not called back. I checked on the patient and she is comfortable with going home at this time. She states that her pain is under good control presently. She will follow up with Dr. Vanessa. She knows to return if she has any difficulty. She states that she has all of her medicati ons necessary at home at present. She has promethazine as well. - Results/Orders Results/Orders: Impression: 1. Redemonstration of a focal fluid collection about the abdominal wall of uncertain sterility or etiology. This fluid collection measures 7.3 x 1.5 x 4.7 cm. 2. Otherwise unchanged appearance of the abdomen and pelvis. Electronically signed by: Candido Corey MD 09/07/2019 6:51 AM ADULT NEUROPSYCHOLOGIST <JOHN ANTHONY - Last Filed: 09/07/19 12:31> Departure <Tima YAOUB - Last Filed: 09/07/19 06:38> - Departure Time of Disposition: 12:29 Diet: resume usual diet <JOHN ANTHONY - Last Filed: 09/07/19 12:31> - Departure Clinical Impression: Generalized abdominal pain, Obstipation Disposition: Discharge to Home or Self Care Condition: Good Departure Forms: ED Discharge - Pt. Copy, Patient Portal Self Enrollment Instructions: DI for Abdominal Pain-Adult Referrals: Rodolfo Monterroso MD [Primary Care Provider] - 1-2 Weeks Juliano Vanessa MD [Affiliate Staff] - 1-2 Weeks Home Medications: Ambulatory Orders Duloxetine HCl [Cymbalta] 60 mg PO BID 12/16/16 Amphetamine-Dextroamphetamine [Adderall 20 mg] 1 tab PO TID PRN 01/28/19 Cyanocobalamin [B-12 Compliance Injection] 1,000 mcg IJ MONTHLY 01/28/19 Diazepam 1 mg PO QAM 01/28/19 Diazepam 2 mg PO BEDTIME 01/28/19 Estrogens, Conjugated [Premarin] 1.25 mg PO BEDTIME 01/28/19 HYDROcodone 10MG/APAP 325MG [[place] 10/325] 1 ea PO Q6H PRN 01/28/19 Linaclotide [Linzess] 145 mcg PO TID PRN 01/28/19 Promethazine Tab [Phenergan Tablet] 25 mg PO Q8HRS PRN 01/28/19 Valacyclovir HCl 1 gm PO TID PRN 01/28/19 Zolpidem Tartrate [Ambien] 10 mg PO BEDTIME 01/28/19 Cyanocobalamin [B-12 Compliance Injection] 1,000 mcg IM MONTHLY 09/07/19 Tizanidine HCl [Zanaflex] 4 mg PO TID 09/07/19 Additional Instructions: recommend soapsuds enemas per Dr. Loving. If worsening of condition or return to the emergency room for further evaluation. Continue home medications. Discuss use of Linzess with Dr. Vanessa. Follow-up with Dr. Loving as well.
[2019-09-07] MEDS ORDERED: fentaNYL CITRATE INJ 50 MCG/ML AMP IV ONE ×2 (07:42→10:26)
[2019-09-07] MEDS ORDERED: PROCHLORPERAZINE INJ 10 MG/2 ML VIAL IV ONE (10:08)
[2019-09-07 12:34] VITALS: BP 122/69; TEMP 97.9; O2SAT 94
== END 2019-09-07 12:45 | disposition home or self-care (01) ==
LOC: ER 04:34
DX: K59.00 Constipation, unspecified (principal); R10.84 Generalized abdominal pain; R11.2 Nausea with vomiting, unspecified; R18.8 Other ascites; I10 Essential (primary) hypertension; Z90.49 Acquired absence of other specified parts of digestive tract
CPT/HCPCS: 36415; 74177; 80048; 80076; 81001; 83690; 84484; 85025; 93005; A4216; J0500; J0780; J2550; J3010; J7030

== ENCOUNTER 2019-10-27 08:11 | Emergency (ER) | payer BC ==
[2019-10-27] MEDS ORDERED: SODIUM CHLORIDE 0.9% 1000ML 1,000 ML IVS PRN (08:36)
[2019-10-27] MEDS ORDERED: SODIUM CHLORIDE 0.9% (FLUSH) 10 ML SYG IV PRN (08:36)
[2019-10-27] MEDS ORDERED: METOPROLOL TARTRATE INJ 5 MG/5 ML VIAL IV ONE ×2 (08:37→09:53)
--- NOTE | 2019-10-27 09:12 | ED.PDOC ---
History of Present Illness - General Chief Complaint: GI Problem Stated Complaint: N/V Time Seen by Provider: 10/27/19 08:36 Information Source: patient, RN notes reviewed, Vital Signs reviewed, EMS notes reviewed Exam Limitations: no limitations - History of Present Illness Initial Comments: Patient is a 49-year-old white female who presents with complaints of nausea, vomiting and now diarrhea for the last 24 hours. The nausea and vomiting started a few hours after her brought home fast food which she ate yesterday. Patient states she is vomited at least 20 times since then. Patient has been unable to hold down anything including water or her medications. Patient states that she is got constant nausea. Patient denies any blurry vision or headache. She had some mild dizziness, lightheadedness, upon standing. Nothing is seeming to help the nausea and vomiting. It is made worse with water or food. The nausea and vomiting is continuous. Her abdominal pain is crampy in nature. It is severe. Abdominal Pain Onset Location: generalized abdomen Pain Radiation: no radiation Quality: severe, cramping, waxing/waning Timing/Duration: 7-24 hours Improving Factors: nothing Worsening Factors: eating Associated Symptoms: diarrhea, fatigue, heartburn, nausea/vomiting Review of Systems - Review of Systems Constitutional: States: see HPI, malaise, weakness. Denies: chills, fever EENTM: States: no symptoms reported, see HPI Respiratory: States: no symptoms reported Cardiology: States: no symptoms reported Gastrointestinal/Abdominal: States: see HPI, abdominal pain, diarrhea, nausea, vomiting Genitourinary: States: no symptoms reported Musculoskeletal: States: no symptoms reported Skin: States: no symptoms reported Neurological: States: anxiety, weakness. Denies: headache, paresthesia Endocrine: States: no symptoms reported Hematologic/Lymphatic: States: no symptoms reported All other Systems: Reviewed and Negative Past Medical History (General) - Patient Medical History Hx Seizures: No Hx Stroke: No Hx Dementia: No Hx Asthma: No Hx of COPD: No Hx Cardiac Disorders: No Hx Congestive Heart Failure: No Hx Pacemaker: No Hx Hypertension: Yes Hx Thyroid Disease: No Hx Diabetes: No Hx Gastroesophageal Reflux: No Hx Renal Disease: No Hx Cancer: No Hx of HIV: No Hx Hepatitis C: No Hx MRSA: No Surgical History: cholecystectomy - Vaccination History Hx Tetanus, Diphtheria Vaccination: Yes - 2018 Hx Influenza Vaccination: No Hx Pneumococcal Vaccination: No - Social History Hx Tobacco Use: No Hx Chewing Tobacco Use: No Hx Alcohol Use: No Hx Substance Use: No Hx Substance Use Treatment: No Hx Depression: No Hx Physical Abuse: No Hx Emotional Abuse: No Hx Suspected Abuse: No - Female History Patient : No Family Medical History - Family History Mother Family History: Unknown Father Living Status: Hx Family Cancer: Yes Physical Exam - Physical Exam General Appearance: Agitated, Alert, Anxious, Obvious distress, Well Developed, Well Groomed, Well Nourished Eyes, Ears, Nose, Throat Exam: PERRL/EOMI, normal ENT inspection, other - Dry mucous membranes Neck: non-tender, full range of motion, supple, normal inspection Respiratory: chest non-tender, lungs clear, normal breath sounds, no respiratory distress, no accessory muscle use Cardiovascular/Chest: normal peripheral pulses, no edema, no gallop, no JVD, no murmur, tachycardia Peripheral Pulses: No deficit Gastrointestinal/Abdominal: normal bowel sounds, soft, guarding - Voluntary, tenderness - Generalized Back Exam: normal inspection, no CVA tenderness, no vertebral tenderness Extremity: normal range of motion, non-tender, normal inspection, no pedal edema, no calf tenderness Neurologic: mica plate layer hand II-XII nml as tested, no motor/sensory deficits, alert, normal mood/affect, oriented x 3 Skin Exam: normal color, warm/dry Progress - Progress Progress: Differential diagnosis: Food poisoning, viral gastroenteritis, infectious diarrhea, bowel obstruction among others. 10/27/19 09:59 Patient's heart rate and blood pressure have improved after IV fluids, IV Lopressor and IV Phenergan. Patient has become quite agitated and accusatory towards the medical staff. Patient is wondering what is wrong with her heart. I have tried to explain to her that it appears to be in good shape. Her EKG is relatively unremarkable for a woman of 49. Patient is very anxious. Lab work shows he is significantly dehydrated and therefore, I will give her some more IV fluids as well as some Ativan to help with her agitation. I discussed the plan of care with the patient and her and at this point time they do voiced understanding and agreement. 10/27/19 10:15 Patient's agitation has improved with the IV Ativan. She is still extremely paranoid that personnel and patients in the ED are talking about her. I did ascertain that patient is on multiple anxiety and psych medications. 10/27/19 12:07 Patient is markedly improved after IV fluid, Ativan and Lopressor. Blood pressure is normal. Her heart rate is now in the 80s. When going into the room to discuss her test results and how well her blood pressure and heart rate look, patient became more agitated, paranoid and her heart rate went up as well as her blood pressure. I suspect patient has a significant underlying anxiety and prob ably needs further evaluation by her PCP. I discussed this with her and her and they voiced understanding and agreement. Patient is requesting some Phenergan suppositories for the nausea and vomiting home. I have told her I will write her a prescription for those. I will discharge the patient home with follow-up with PCP. Patient voices understanding and agreement with the plan of care. Tommy Ceballos M.D. #[id number] - Results/Orders Results/Orders: 10/27/19 08:36 Sodium Chloride 0.9% (Flush) [Saline Flush Syringe] 10 ml IV PRN PRN Sodium Chloride 0.9% 1000ML [Ns 1000 ml] 1,000 ml IVS .QD 10/27/19 09:30 EKG .ONCE EKG STAT 10/27/19 09:54 Sodium Chloride 0.9% 1000ML [Ns 1000 ml] 1,000 ml IVS ONCE Laboratory Results - last 24 hr 10/27/19 10/27/19 10/27/19 08:51 08:51 09:35 WBC 24.6 H* RBC 4.74 Hgb 14.4 Hct 42.5 MCV 89.7 MCH 30.4 MCHC 33.9 RDW 12.5 Plt Count 467 H MPV 8.4 Absolute Neuts (auto) 22.60 H Absolute Lymphs (auto) 1.30 Absolute Monos (auto) 0.50 Absolute Eos (auto) 0.00 Absolute Basos (auto) 0.10 Neutrophils % 92.0 H Neutrophils % (Manual) 81.0 H Lymphocytes % 5.4 L Lymphocytes % (Manual) 14.0 Monocytes % 2.2 Monocytes % (Manual) 3.0 Eosinophils % 0.0 L Basophils % 0.4 Band Neutrophils 2.0 Platelet Estimate Normal Normal RBC Morphology Normal rbc morph Sodium 140 Potassium 3.8 Chloride 101 Carbon Dioxide 20 L Anion Gap 22.8 H BUN 13 Creatinine 0.89 BUN/Creatinine Ratio 14.6 Random Glucose 142 H Serum Osmolality 281.9 Calcium 9.2 Total Bilirubin 0.9 Direct Bilirubin 0.1 Indirect Bilirubin 0.8 AST 33 ALT 25 Alkaline Phosphatase 116 Serum Total Protein 9.0 H Albumin 4.3 Lipase 39 Urine Color Yellow Urine Appearance Sl cloudy Urine pH 5.0 Ur Specific [place] >= 1.030 Urine Protein >=300 H Urine Glucose (UA) Negative Urine Ketones >=160 Urine Blood Large H Urine Nitrite Negative Urine Bilirubin Moderate Urine Urobilinogen 0.2 Ur Leukocyte Esterase Negative Urine RBC 0-1 Urine WBC 0-1 Ur Epithelial Cells 5-10 Urine Bacteria 1+ Fine Granular Casts 5-10 Urine Mucus Moderate EKG performed on 27 October 2019 at 0926 hrs.: Normal sinus rhythm at 95 bpm, normal axis deviation, possible anterior infarct, age indeterminate, prolonged QT at 400 ms, abnormal EKG. No previous EKG to compare to. 10/27/19 08:36 Sodium Chloride 0.9% (Flush) [Saline Flush Syringe] 10 ml IV PRN PRN Sodium Chloride 0.9% 1000ML [Ns 1000 ml] 1,000 ml IVS .QD 10/27/19 09:30 EKG .ONCE EKG STAT Laboratory Results - last 24 hr 10/27/19 10/27/19 10/27/19 08:51 08:51 09:35 WBC 24.6 H* RBC 4.74 Hgb 14.4 Hct 42.5 MCV 89.7 MCH 30.4 MCHC 33.9 RDW 12.5 Plt Count 467 H MPV 8.4 Absolute Neuts (auto) 22.60 H Absolute Lymphs (auto) 1.30 Absolute Monos (auto) 0.50 Absolute Eos (auto) 0.00 Absolute Basos (auto) 0.10 Neutrophils % 92.0 H Neutrophils % (Manual) 81.0 H Lymphocytes % 5.4 L Lymphocytes % (Manual) 14.0 Monocytes % 2.2 Monocytes % (Manual) 3.0 Eosinophils % 0.0 L Basophils % 0.4 Band Neutrophils 2.0 Platelet Estimate Normal Normal RBC Morphology Normal rbc morph Sodium 140 Potassium 3.8 Chloride 101 Carbon Dioxide 20 L Anion Gap 22.8 H BUN 13 Creatinine 0.89 BUN/Creatinine Ratio 14.6 Random Glucose 142 H Serum Osmolality 281.9 Calcium 9.2 Total Bilirubin 0.9 Direct Bilirubin 0.1 Indirect Bilirubin 0.8 AST 33 ALT 25 Alkaline Phosphatase 116 Serum Total Protein 9.0 H Albumin 4.3 Lipase 39 Urine Color Yellow Urine Appearance Sl cloudy Urine pH 5.0 Ur Specific [place] >= 1.030 Urine Protein >=300 H Urine Glucose (UA) Negative Urine Ketones >=160 Urine Blood Large H Urine Nitrite Negative Urine Bilirubin Moderate Urine Urobilinogen 0.2 Ur Leukocyte Esterase Negative Urine RBC 0-1 Urine WBC 0-1 Ur Epithelial Cells 5-10 Urine Bacteria 1+ Fine Granular Casts 5-10 Urine Mucus Moderate Urine Opiates Screen Urine Barbiturates Ur Phencyclidine Scrn U Amphetamin/Meth Scrn U Benzodiazepines Scrn U Cocaine Metab Screen U Cannabinoids Screen 10/27/19 10:10 WBC RBC Hgb Hct MCV MCH MCHC RDW Plt Count MPV Absolute Neuts (auto) Absolute Lymphs (auto) Absolute Monos (auto) Absolute Eos (auto) Absolute Basos (auto) Neutrophils % Neutrophils % (Manual) Lymphocytes % Lymphocytes % (Manual) Monocytes % Monocytes % (Manual) Eosinophils % Basophils % Band Neutrophils Platelet Estimate Normal RBC Morphology Sodium Potassium Chloride Carbon Dioxide Anion Gap BUN Creatinine BUN/Creatinine Ratio Random Glucose Serum Osmolality Calcium Total Bilirubin Direct Bilirubin Indirect Bilirubin AST ALT Alkaline Phosphatase Serum Total Protein Albumin Lipase Urine Color Urine Appearance Urine pH Ur Specific [place] Urine Protein Urine Glucose (UA) Urine Ketones Urine Blood Urine Nitrite Urine Bilirubin Urine Urobilinogen Ur Leukocyte Esterase Urine RBC Urine WBC Ur Epithelial Cells Urine Bacteria Fine Granular Casts Urine Mucus Urine Opiates Screen Positive H Urine Barbiturates Negative Ur Phencyclidine Scrn Negative U Amphetamin/Meth Scrn Negative U Benzodiazepines Scrn Positive H U Cocaine Metab Screen Negative U Cannabinoids Screen Negative Departure - Departure Clinical Impression: Anxiety, Gastroenteritis, Accelerated hypertension Time of Disposition: 12:09 Disposition: Discharge to Home or Self Care Condition: Good Departure Forms: ED Discharge - Pt. Copy, Patient Portal Self Enrollment Instructions: High Blood Pressure in Adults, Anxiety, Adult (DC), Viral Gastroenteritis, Adult (DC) Referrals: Rodolfo Monterroso MD [Primary Care Provider] - 1-5 Days Prescriptions: Promethazine Supp [Phenergan Suppository] 12.5 mg NE Q6H #12 sup Home Medications: Ambulatory Orders Duloxetine HCl [Cymbalta] 60 mg PO BID 12/16/16 Amphetamine-Dextroamphetamine [Adderall 20 mg] 1 tab PO TID PRN 01/28/19 Diazepam 1 mg PO QAM 01/28/19 Diazepam 2 mg PO BEDTIME 01/28/19 HYDROcodone 10MG/APAP 325MG [[place] 10/325] 1 ea PO Q6H PRN 01/28/19 Promethazine Tab [Phenergan Tablet] 25 mg PO Q8HRS PRN 01/28/19 Zolpidem Tartrate [Ambien] 10 mg PO KIM-OTH-DAY 01/28/19 Cyanocobalamin [B-12 Compliance Injection] 1,000 mcg IM MONTHLY 09/07/19 Tizanidine HCl [Zanaflex] 4 mg PO TID 09/07/19 Estradiol 2 mg PO DAILY 10/27/19 Linaclotide [Linzess] 72 mcg PO DAILY 10/27/19 Losartan Potassium 100 mg PO DAILY 10/27/19 Promethazine Supp [Phenergan Suppository] 12.5 mg NE Q6H #12 sup 10/27/19
[2019-10-27] MEDS ORDERED: SODIUM CHLORIDE 0.9% 1000ML 1,000 ML IVS ONE (09:54)
[2019-10-27] MEDS ORDERED: PROMETHAZINE HCL INJ 25 MG in SODIUM CHLORIDE 0.9% 50ML 50 ML IVPB ONE (11:32)
[2019-10-27] MEDS ORDERED: SODIUM CHLORIDE 0.9% 50ML 50 ML ONE (11:35)
[2019-10-27] MEDS ORDERED: PROMETHAZINE HCL INJ 25 MG/ML VIAL ONE (11:35)
[2019-10-27 11:50] VITALS: TEMP 99.1
[2019-10-27 13:47] VITALS: BP 184/94; O2SAT 95
== END 2019-10-27 12:30 | disposition home or self-care (01) ==
LOC: ER 08:11
DX: K52.9 Noninfective gastroenteritis and colitis, unspecified (principal); I10 Essential (primary) hypertension; F41.9 Anxiety disorder, unspecified; R12 Heartburn
CPT/HCPCS: 36415; 80048; 80076; 80307; 81001; 83690; 85025; 93005; A4216; J2060; J2550; J7030

== ENCOUNTER 2019-12-03 04:02 | Emergency (ER) | payer BC ==
[2019-12-03 04:23] VITALS: TEMP 99.1; O2SAT 96
[2019-12-03] MEDS ORDERED: SODIUM CHLORIDE 0.9% 1000ML 1,000 ML IVS ONE ×2 (04:30→04:56)
--- NOTE | 2019-12-03 04:38 | CT ---
EXAM DESCRIPTION: CT of the head without contrast CLINICAL HISTORY: left sided weakness adn neglect COMPARISON: None available TECHNIQUE: Axial CT of the head obtained from the skull apex to the skull base without contrast. FINDINGS: No acute intracranial hemorrhage identified. No mass, mass effect, shift of the midline, abnormal extra-axial fluid collection or CT evidence of acute ischemic change identified. The ventricular system and sulcal spaces are enlarged. Scattered areas of hypodensity throughout the supratentorial white matter are nonspecific and may be related to chronic small vessel ischemic change. Possible small focus of encephalomalacia in the left cerebellum which may be related to remote infarction. The visualized paranasal sinuses and the mastoids are clear. No skull fracture identified. Visualized orbits and globes are unremarkable. IMPRESSION: 1. No acute intracranial abnormality by CT criteria. Urgent finding reported to Dr. 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 Electronically signed by: Cl Lazo 12/03/2019 4:37 AM FILLER SHREDDING MACHINE LOADER
[2019-12-03] MEDS ORDERED: DEXTROSE 5% 250ML 250 ML ONE (04:45)
[2019-12-03] MEDS ORDERED: EPINEPHrine HCL AMP 1 MG/ML AMP ONE (04:46)
--- NOTE | 2019-12-03 04:51 | RAD ---
CHEST, ONE VIEW XR CLINICAL HISTORY: stroke COMPARISON: Chest 08/08/2019 TECHNIQUE: AP Chest. FINDINGS: [Normal cardiac size. Pulmonary vasculature appears normal. Normal cardiomediastinal contours. Lungs volumes are low which exaggerate the heart size. Lungs are clear. Pleural spaces are clear. Unremarkable soft tissues. Mild generalized thoracic degenerative change. IMPRESSION: 1. No acute cardiopulmonary finding. Electronically signed by: Amy Mathew DO 12/03/2019 4:50 AM APPLICATIONS PROGRAMMER
[2019-12-03] MEDS ORDERED: ALTEPLASE 100 MG ONE (04:55)
[2019-12-03 05:02] VITALS: BP 96/64
--- NOTE | 2019-12-03 05:06 | ED.PDOC ---
History of Present Illness - General Chief Complaint: Neuro Symptoms/Deficits Stated Complaint: left sided weakness Time Seen by Provider: 12/03/19 04:10 Source: patient Exam Limitations: no limitations - History of Present Illness Initial Comments: The patient is a 49-year-old female presented emergency room secondary to what appears to be a stroke. The patient's last known normal was around 1:30 AM. The patient had been feeling poorly all day the day before but no neurological changes. She woke up around 1:30 AM not feeling good and then went back to bed. Around 330 this morning she got up to go to the bathroom and fell flat. The left side of her body was not functioning properly. Blood pressures were markedly low upon arrival here with systolics in the 60s. Blood pressures have improved significantly after 2 L of IV fluids. On questioning the patient has a history of extremely labile blood pressures with market episodes of hypotension and market episodes of hypertension but apparently no one has been able to figure out. No strokes in the past. She reports that she does have fibromyalgia and says she has some form of autoimmune disease but does not remember what kind. She is apparently not taking anything for this autoimmune disease. She denies taking any blood thinners. She denies any heart problems. She denies drug abuse. She does take hydrocodone intermittently for her fibromyalgia. She promises up and down that she only took 1 last night. The patient is alert and oriented. She has a gaze to the right but can shift her ey es back to the left. When approached from the left and spoken to she looks shortly to the right. Initially upon arrival she was not able to move the left arm at all and had no sensation in it. After about an hour she does have some decent systems mechanic returning in the left hand. She still cannot feel anyone touching her left upper extremity or her left lower extremity. Strength on arrival of the left lower extremity was some movement against gravity. That has not changed. It is difficult to tell if she has a visual field deficit. The patient is pleasant and cooperative and can give most of her medical history accurately. She is alert and oriented. She has a headache from where she fell and hit her forehead centrally. Timing/Duration: 1-3 hours Severity: severe Improving Factors: nothing Worsening Factors: nothing Associated Symptoms: denies symptoms Allergies/Adverse Reactions: Allergies Latex Allergy (Verified 01/28/19 15:38) Morphine Allergy (Verified 01/28/19 15:38) Pregabalin [From Lyrica] Allergy (Verified 02/05/19 12:32) Diphenhydramine [From Benadryl] Adverse Reaction (Verified 09/07/19 05:01) Penicillin G Adverse Reaction (Verified 09/07/19 05:01) Home Medications: Ambulatory Orders Duloxetine HCl [Cymbalta] 60 mg PO BID 12/16/16 Amphetamine-Dextroamphetamine [Adderall 20 mg] 1 tab PO TID PRN 01/28/19 Diazepam 1 mg PO QAM 01/28/19 Diazepam 2 mg PO BEDTIME 01/28/19 HYDROcodone 10MG/APAP 325MG [[place]er[place] 10/325] 1 ea PO Q6H PRN 01/28/19 Promethazine Tab [Phenergan Tablet] 25 mg PO Q8HRS PRN 01/28/19 Zolpidem Tartrate [Ambien] 10 mg PO KIM-OTH-DAY 01/28/19 Cyanocobalamin [B-12 Compliance Injection] 1,000 mcg IM MONTHLY 09/07/19 Tizanidine HCl [Zanaflex] 4 mg PO TID 09/07/19 Estradiol 2 mg PO DAILY 10/27/19 Linaclotide [Linzess] 72 mcg PO DAILY 10/27/19 Losartan Potassium 100 mg PO DAILY 10/27/19 Promethazine Supp [Phenergan Suppository] 12.5 mg MN Q6H #12 sup 10/27/19 Review of Systems - Review of Systems Constitutional: States: malaise, weakness EENTM: States: no symptoms reported Respiratory: States: no symptoms reported Cardiology: States: no symptoms reported Gastrointestinal/Abdominal: States: abdominal pain - Chronic Musculoskeletal: States: see HPI Skin: States: no symptoms reported Neurological: States: see HPI Endocrine: States: no symptoms reported All other Systems: No Change from Baseline Past Medical History (General) - Patient Medical History Hx Seizures: No Hx Stroke: No Hx Dementia: No Hx Asthma: No Hx of COPD: No Hx Cardiac Disorders: No Hx Congestive Heart Failure: No Hx Pacemaker: No Hx Hypertension: Yes Hx Thyroid Disease: No Hx Diabetes: No Hx Gastroesophageal Reflux: No Hx Renal Disease: No Hx Cancer: No Hx of HIV: No Hx Hepatitis C: No Hx MRSA: No Surgical History: appendectomy, cholecystectomy - Vaccination History Hx Tetanus, Diphtheria Vaccination: Yes - 2017 Hx Influenza Vaccination: No Hx Pneumococcal Vaccination: No - Social History Hx Tobacco Use: No Hx Chewing Tobacco Use: No Hx Alcohol Use: No Hx Substance Use: No Hx Substance Use Treatment: No Hx Depression: No Hx Physical Abuse: No Hx Emotional Abuse: No Hx Suspected Abuse: No - Female History Patient : No Family Medical History - Family History Mother Family History: Unknown Father Living Status: Hx Family Cancer: Yes Physical Exam - Physical Exam General Appearance: Alert, Lethargic - Drowsy initially but wakes up after 30 minutes or so Eye Exam: bilateral other - Gaze deviation to the right but she is able to direct him back to the left upon verbal command. Difficult to assess for visual borrero. Pupils seem reactive and symmetrical. Ears, Nose, Throat: hearing grossly normal, other - Weak gag reflex. Mildly slurred speech. No difficulty finding words. Neck: non-tender, full range of motion, supple Respiratory: chest non-tender, lungs clear, normal breath sounds, no respiratory distress, no accessory muscle use Cardiovascular/Chest: normal peripheral pulses, regular rate, rhythm, no edema Peripheral Pulses: radial,right: 1+, radial,left: 1+, dorsalis pedis,right: 1+, dorsalis pedis,left: 1+ Gastrointestinal/Abdominal: other - Abdomen is mildly diffusely distended and uncomfortable to palpation. The patient reports that this is the way that it always is. She apparently has a history of collecting fluid pockets along her abdominal wall that are drained periodically by the general surgeon. Rectal Exam: deferred Back Exam: no CVA tenderness, no vertebral tenderness Extremity: other - See history of present illness. Neurologic: alert - Initially drowsy but back to a normal level of mentation after 30 minutes., normal mood/affect - Mood and affect are appropriate for the situation, oriented x 3, other - There may be a slight left-sided facial droop but only very slight. Speech is somewhat slurred. Again she has the motor and sensory deficits as per history of present illness. Skin Exam: normal color Comments: Vital Signs - 24 hr 12/03/19 12/03/19 12/03/19 04:03 04:36 04:45 Temperature 99.1 F Pulse Rate [ 99 H 88 83 monitor] Respiratory 18 18 Rate Blood Pressure 67/51 82/63 96/64 [Right Arm] O2 Sat by Pulse 96 96 Oximetry Last blood pressure was a systolic blood pressure of 116. Progress - Progress Progress: 12/03/19 05:10 The patient is a 49-year-old female presented emergency room with a ischemic stroke given left-sided deficits and a right lateral gaze. CT scan of the head shows no evidence of hemorrhage or ischemic activity. No acute pathology. The patient is going to be treated for an ischemic stroke. She is receiving TPA. She has received 2 L of IV fluids for the hypotension and has been placed on a low flow epinephrine drip that can be used by EMS in route to maintain a systolic blood pressure between 110 and 150 for improved cerebral perfusion. The source of the leukocytosis is uncertain at this point in time. Looking back at her history she has had multiple episodes with market leukocytosis in the past. This may require further work-up at the receiving facility. Additionally the patient will need a CT angiogram of the head upon arrival. Acceptance of the transfer is appreciated. Any residual lab work will be forwarded in an effort to get the patient to an appropriate receiving facility where intervention otherwise can be performed if necessary as quickly as possible. Transferring for higher level and specialty of care. lg main 454 Critical care time spent on this patient is 1 hour excluding otherwise billable procedures. - Results/Orders Results/Orders: 12/03/19 04:10 Telemetry .CONTINUOUS 12/03/19 04:15 EKG STAT 12/03/19 04:20 PARTIAL THROMBOPLASTIN TIME Stat PROTHROMBIN TIME Stat 12/03/19 04:30 Sodium Chloride 0.9% 1000ML [Ns 1000 ml] 1,000 ml IVS ONCE 12/03/19 04:56 Sodium Chloride 0.9% 1000ML [Ns 1000 ml] 1,000 ml IVS ONCE Laboratory Results - last 24 hr 12/03/19 12/03/19 04:20 04:20 WBC 27.2 H* RBC 4.34 Hgb 12.9 Hct 39.4 MCV 90.8 MCH 29.8 MCHC 32.8 L RDW 12.2 Plt Count 459 H MPV 8.9 Absolute Neuts (auto) 23.70 H Absolute Lymphs (auto) 1.90 Absolute Monos (auto) 1.50 H Absolute Eos (auto) 0.00 Absolute Basos (auto) 0.20 H Neutrophils % 86.9 H Neutrophils % (Manual) 84.0 H Lymphocytes % 7.0 L Lymphocytes % (Manual) 8.0 Monocytes % 5.5 Monocytes % (Manual) 5.0 Eosinophils % 0.0 L Basophils % 0.6 Band Neutrophils 3.0 H Platelet Estimate Increased Normal RBC Morphology Normal rbc morph Sodium 135 Potassium 4.5 Chloride 102 Carbon Dioxide 20 L Anion Gap 17.5 BUN 26 H Creatinine 1.94 H BUN/Creatinine Ratio 13.4 Random Glucose 190 H Serum Osmolality 279.9 Calcium 9.6 Total Bilirubin 0.6 AST 40 ALT 28 Alkaline Phosphatase 90 Creatine Kinase 15 L CK-MB (CK-2) 0.5 CK-MB (CK-2) % Not Reportable Troponin I < 0.02 B-Natriuretic Peptide 6.8 Serum Total Protein 8.1 Albumin 3.7 Globulin 4.4 H Albumin/Globulin Ratio 0.8 L - EKG/XRAY/CT CT Ordered: Yes - no acute findings Departure - Departure Clinical Impression: Ischemic stroke Hypotension Qualifiers: Hypotension type: unspecified hypotension type Qualified Code(s): I95.9 - Hypotension, unspecified Leukocytosis Qualifiers: Leukocytosis type: other Qualified Code(s): D72.828 - Other elevated white blood cell count Disposition: Transfer to Hospital Condition: Serious Departure Forms: ED Discharge - Pt. Copy, Patient Portal Self Enrollment Referrals: Rodolfo Monterroso MD [Primary Care Provider] - 1-2 Weeks Home Medications: Ambulatory Orders Duloxetine HCl [Cymbalta] 60 mg PO BID 12/16/16 Amphetamine-Dextroamphetamine [Adderall 20 mg] 1 tab PO TID PRN 01/28/19 Diazepam 1 mg PO QAM 01/28/19 Diazepam 2 mg PO BEDTIME 01/28/19 HYDROcodone 10MG/APAP 325MG [[place] 10/325] 1 ea PO Q6H PRN 01/28/19 Promethazine Tab [Phenergan Tablet] 25 mg PO Q8HRS PRN 01/28/19 Zolpidem Tartrate [Ambien] 10 mg PO KIM-OTH-DAY 01/28/19 Cyanocobalamin [B-12 Compliance Injection] 1,000 mcg IM MONTHLY 09/07/19 Tizanidine HCl [Zanaflex] 4 mg PO TID 09/07/19 Estradiol 2 mg PO DAILY 10/27/19 Linaclotide [Linzess] 72 mcg PO DAILY 10/27/19 Losartan Potassium 100 mg PO DAILY 10/27/19 Promethazine Supp [Phenergan Suppository] 12.5 mg MN Q6H #12 sup 10/27/19 Transfer to Outside Facility - Transfer Information Decision to Transfer Date: 12/03/19 Decision to Transfer Time: 05:13 Reason for Transfer: required specialist not available Accepting Provider:: dr loyola/colleen Accepting Facility: [facility]
[2019-12-03] MEDS ORDERED: ALTEPLASE IVS ONE (05:17)
[2019-12-03] MEDS ORDERED: PROMETHAZINE HCL INJ 25 MG/ML VIAL ONE (05:36)
[2019-12-03] MEDS ORDERED: PROMETHAZINE HCL INJ 12.5 MG in SODIUM CHLORIDE 0.9% 50ML 50 ML IVPB ONE (05:41)
== END 2019-12-03 05:45 | disposition short-term general hospital (02) ==
LOC: ER 04:02
DX: I63.9 Cerebral infarction, unspecified (principal); G81.94 Hemiplegia, unspecified affecting left nondominant side; I69.328 Other speech and language deficits following cerebral infarction; D72.828 Other elevated white blood cell count; I95.9 Hypotension, unspecified; I45.81 Long QT syndrome; M79.7 Fibromyalgia; D89.89 Other specified disorders involving the immune mechanism, not elsewhere classified; I10 Essential (primary) hypertension; Z79.899 Other long term (current) drug therapy; Z91.040 Latex allergy status; Z88.5 Allergy status to narcotic agent; Z88.8 Allergy status to other drugs, medicaments and biological substances; Z88.0 Allergy status to penicillin
CPT/HCPCS: 70450; 71045; 80053; 82550; 82553; 83880; 84484; 85025; 85610; 85730; 93005; J2550; J2997; J7030; J7060

== ENCOUNTER 2019-12-23 02:15 | Emergency (ER) | payer BC ==
[2019-12-23] MEDS ORDERED: SODIUM CHLORIDE 0.9% (FLUSH) 10 ML SYG IV PRN (02:33)
--- NOTE | 2019-12-23 02:42 | ED.PDOC ---
History of Present Illness - General Chief Complaint: Neck Injury/Pain Stated Complaint: neck pain Time Seen by Provider: 12/23/19 02:32 Source: patient, family Exam Limitations: no limitations - History of Present Illness Initial Comments: STROKE-LIKE SX AT 1700 TODAY (9 1/2 HRS AGO), NOTICED PT HAD UNEASY GAIT AND HE HAD TO HELP HER TO THE RESTROOM. THEN APPROX 1 HR AGO, PT NOTICED BURNING SENSATION IN L NECK AND LUE. EMS NOTED HOTN. PMH: HAD STROKE October,. PT SAID SHE HAS A H/O BOTH ISCHEMIC AND HEMORRHAGIC STROKES. PSH: CRANIECTOMY DEC 05, 2019 FOR BRAIN EDEMA FROM BLEEDING. HAS F/U WITH [facility] IN 2 WKS BUT IS NOT SEEING NEUROLOGY B/C SHE WASN'T HAPPY WITH THEIR CARE (PT UNABLE TO ARTICULATE WHY; SOMETHING ABOUT THE MEDICATIONS). Severity: moderate Improving Factors: rest Worsening Factors: movement Associated Symptoms: weakness Allergies/Adverse Reactions: Allergies Latex Allergy (Verified 01/28/19 15:38) Morphine Allergy (Verified 01/28/19 15:38) Pregabalin [From Lyrica] Allergy (Verified 02/05/19 12:32) Diphenhydramine [From Benadryl] Adverse Reaction (Verified 09/07/19 05:01) Penicillin G Adverse Reaction (Verified 09/07/19 05:01) Home Medications: Ambulatory Orders Diazepam 1 mg PO QAM 01/28/19 Diazepam 2 mg PO BEDTIME 01/28/19 HYDROcodone 10MG/APAP 325MG [Hansen 10/325] 1 ea PO Q6H PRN 01/28/19 Promethazine Tab [Phenergan Tablet] 25 mg PO Q8HRS PRN 01/28/19 Zolpidem Tartrate [Ambien] 10 mg PO KIM-OTH-DAY 01/28/19 Cyanocobalamin [B-12 Compliance Injection] 1,000 mcg IM MONTHLY 09/07/19 Tizanidine HCl [Zanaflex] 4 mg PO TID 09/07/19 Lisinopril [Zestril] 20 mg PO DAILY 12/23/19 Simvastatin [Zocor] 20 mg PO DAILY 12/23/19 metroNIDAZOLE [Flagyl] 500 mg PO Q8H 12/23/19 Review of Systems - Review of Systems Constitutional: Denies: chills, fever EENTM: Denies: blurred vision, ear pain Respiratory: Denies: cough, short of breath Cardiology: Denies: chest pain, palpitations Gastrointestinal/Abdominal: Denies: abdominal pain, nausea Genitourinary: States: no symptoms reported Musculoskeletal: States: neck pain - L SOFT TISSUE "BURNING". . Denies: back pain Skin: States: no symptoms reported Neurological: Denies: headache, paresthesia - L NECK AND LUE. Endocrine: States: no symptoms reported Hematologic/Lymphatic: States: no symptoms reported All other Systems: Reviewed and Negative Past Medical History (General) - Patient Medical History Hx Seizures: No Hx Stroke: No Hx Dementia: No Hx Asthma: No Hx of COPD: No Hx Cardiac Disorders: No Hx Congestive Heart Failure: No Hx Pacemaker: No Hx Hypertension: Yes Hx Thyroid Disease: No Hx Diabetes: No Hx Gastroesophageal Reflux: No Hx Renal Disease: No Hx Cancer: No Hx of HIV: No Hx Hepatitis C: No Hx MRSA: No - Vaccination History Hx Tetanus, Diphtheria Vaccination: Yes - 2018 Hx Influenza Vaccination: No Hx Pneumococcal Vaccination: No - Social History Hx Tobacco Use: No Hx Chewing Tobacco Use: No Hx Alcohol Use: No Hx Substance Use: No Hx Substance Use Treatment: No Hx Depression: No Hx Physical Abuse: No Hx Emotional Abuse: No Hx Suspected Abuse: No - Female History Patient : No Family Medical History - Family History Mother Family History: Unknown Father Living Status: Hx Family Cancer: Yes Physical Exam - Physical Exam General Appearance: Alert, Well Groomed Eye Exam: bilateral normal Ears, Nose, Throat: hearing grossly normal, normal ENT inspection, normal pharynx, other - R SCALP SURGICAL SCAR AND TOÑO C/D/I (FROM CRANIECTOMY). WOUND CLEAN. 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 EXCELLENT, SYMMETRIC STRENGHT X 4 EXTREMITIES. CN 2-12 IN TACT. SPEECH CLEAR. Skin Exam: normal color, warm/dry Lymphatic: no adenopathy Progress - Progress Progress: 12/23/19 03:23 IMAGING PENDING. I AM AWAITING CT BRAIN PRIOR TO IVF BOLUS D/T HER H/O HEMORRHAGIC STROKE. CURRENTLY NS AT 125/H. L NECK AND LUE "BURNING" SENSATION - CT TO EVAL SINCE RECENT STROKE. GEN WEAKNESS TODAY - LIKELY D/T HYPOTENSION. PT INFORMS ME TODAY SHE INCREASED HER LISINOPRIL FROM 10 TO 20 MG. HYPOTENSION - IVF REPLACEMENT. ANEMIA - HGB 10. CONTRIBUTING TO HER FATIGUE. WBC AND NEUTS ELEVATED - NO S/SX SUGGESTIVE OF IFXN. PT'S SURGICAL AREA (SCALP INCISION FROM CRANIECTOMY) IS CLEAN, DRY, AND INTACT W/O ERYTHEMA. ARF - CR 1.8 FROM DEHYDRATION. IVF. CARD ENZ, COAGS ARE NEG ACUTELY. GLUCOSE NL. EKG SINUS W/ PROLONGED QT INTERVAL. PT DOUBLED HER LISINOPRIL TODAY, ALONG WITH DEHYDRATION, RESULTING IN HOTN, RESULTING IN WEAKNESS AND GAIT TROUBLES EARLIER. ETX OF L NECK AND LUE "BURNING" SENSATION IS UNCLEAR UNTIL RADIOLOGY RESULTS. 12/23/19 03:42 IMAGING STILL PENDING. 12/23/19 03:49 BP INCREASED TO 101/68 WITH GENTLE IVF. SHE REQUESTS PAIN MED FOR THE L NECK PAIN/BURNING SENSATION. 12/23/19 04:00 Imaging results still pending. 12/23/19 04:[address] NECK SOFT TISSUES NEG. CXR NEG. CT BRAIN = POSSIBLE HEMMORHAGE OF RIGHT FRONTOPARIETAL LOBE, CORTICAL GYRI = LAMINAR NECROSIS VS PETECHIAL HEMORRHAGE. STROKE SX STARTED 12 HRS AGO, THUS NO LYTICS. 12/23/19 04:55 PROLONGED ER STAY DUE TO DELAY IN RADIOLOGY READ. PER PT PREFERENCE AND CONTINUITY OF CARE THIS IS WHERE HER STROKE CARE AND CRANIECTOMY OCCURRED, TRANSFERRING TO [facility]. DR. BYRD, NEURO, FELT PT APPROPRIATE FOR NEURO SVC AFTER ER EVALUATION. I SPOKE WITH DR. KENNETH LANCASTER, ER, WHO IS ACCEPTING TRANSFER. THANK YOU VERY MUCH, [facility], FOR YOUR HIGHER LEVEL OF CARE. 12/23/19 05:05 Departure - Departure Clinical Impression: Paresthesia of left upper extremity, Hx of completed stroke, History of craniotomy, Generalized weakness, Neutrophilic leukocytosis, Creatinine elevation, Hemorrhagic stroke Hypotension Qualifiers: Hypotension type: unspecified hypotension type Qualified Code(s): I95.9 - Hypotension, unspecified Anemia Qualifiers: Anemia type: unspecified type Qualified Code(s): D64.9 - Anemia, unspecified Disposition: Transfer to Hospital Departure Forms: ED Discharge - Pt. Copy, Patient Portal Self Enrollment Referrals: Rodolfo Monterroso MD [Primary Care Provider] - 1-2 Days Home Medications: Ambulatory Orders Diazepam 1 mg PO QAM 01/28/19 Diazepam 2 mg PO BEDTIME 01/28/19 HYDROcodone 10MG/APAP 325MG [Hansen 10/325] 1 ea PO Q6H PRN 01/28/19 Promethazine Tab [Phenergan Tablet] 25 mg PO Q8HRS PRN 01/28/19 Zolpidem Tartrate [Ambien] 10 mg PO KIM-OTH-DAY 01/28/19 Cyanocobalamin [B-12 Compliance Injection] 1,000 mcg IM MONTHLY 09/07/19 Tizanidine HCl [Zanaflex] 4 mg PO TID 09/07/19 Lisinopril [Zestril] 20 mg PO DAILY 12/23/19 Simvastatin [Zocor] 20 mg PO DAILY 12/23/19 metroNIDAZOLE [Flagyl] 500 mg PO Q8H 12/23/19 Additional Instructions: Please decrease your lisinopril back to 10 mg per day until you see your regular doctor. Drink at least 64 oz of water per day to support your blood pressure and hydrate your kidneys. Please see your regular doctor this week regarding anemia and your low blood pressure. Please call your neurologist to make an appointment regarding your stroke medication and to further evaluate the burning sensation in your left neck and arm. Transfer to Outside Facility - Transfer Information Decision to Transfer Date: 12/23/19 Decision to Transfer Time: 05:07 Reason for Transfer: specialized care not available Accepting Provider:: DR. KENNETH LANCASTER Accepting Facility: [facility]
[2019-12-23] MEDS ORDERED: fentaNYL CITRATE INJ 50 MCG/ML AMP IV ONE (03:51)
--- NOTE | 2019-12-23 04:01 | RAD ---
Chest one view on 12/23/2019 CLINICAL INDICATION: Left neck pain COMPARISON: 12/03/2019 FINDINGS: There is mild elevation of the right hemidiaphragm. Borderline cardiomegaly is noted. The lungs are clear. Hilar and mediastinal contours are within normal limits. Pulmonary vascularity is within normal limits. IMPRESSION: No acute disease. Electronically signed by: Jarret Uriostegui 12/23/2019 3:59 AM CDT
--- NOTE | 2019-12-23 04:11 | CT ---
EXAM: CT Head Without Contrast 12/23/2019 at 2:53 AM HISTORY: Left NECK PAIN, STROKE 2 MONTHS AGO COMPARISON: CT head 12/03/2019 TECHNIQUE: Head/brain axial images acquired without contrast. Coronal and sagittal reformats created. Exam performed according to departmental dose-optimization program which includes automated exposure control, adjustment of mA and/or kV according to patient size, and/or use of iterative reconstruction technique. FINDINGS: No midline shift. Large area of heterogeneous densities of right frontoparietal lobes. Mildly hyperdense superior right frontoparietal lobe cortical gyri. Small hypodense lesion of left cerebellar hemisphere's posterior aspect likely represents old infarct. Recent large right craniectomy. Paranasal sinuses and mastoid air cells clear. IMPRESSION: No recent exam for comparison. Large area of heterogeneous densities of right frontoparietal lobes. This may represent recent subacute ischemic infarct. Mildly hyperdense superior right frontoparietal lobe cortical gyri may represent laminar necrosis, but petechial hemorrhage cannot be completely excluded. Electronically signed by: Jim Rodriguez MD 12/23/2019 4:09 AM CDT
--- NOTE | 2019-12-23 04:24 | CT ---
EXAM: CT Neck Without Intravenous Contrast CLINICAL HISTORY: The patient is 49 years old and is Female; L NECK PAIN; H/O STROKE 2 MOS AGO. TECHNIQUE: Axial computed tomography images of the neck without contrast. Sagittal and coronal reformatted images were created and reviewed. This CT exam was performed using one or more of the following dose reduction techniques: automated exposure control, adjustment of the mA and/or kV according to patient size, and/or use of iterative reconstruction technique. COMPARISON: No relevant prior studies available. FINDINGS: ARTIFACTS: The exam is suboptimal secondary to motion artifact. OROPHARYNX: Unremarkable. No significant tonsillar enlargement. No peritonsillar abscess. HYPOPHARYNX: Unremarkable. LARYNX: Unremarkable. Normal epiglottis. TRACHEA: Unremarkable. RETROPHARYNGEAL SPACE: Unremarkable. SUBMANDIBULAR/PAROTID GLANDS: Unremarkable. Glands are normal in size. THYROID: Unremarkable. No enlarged or calcified nodules. BONES/JOINTS: Minimal degenerative change of the spine is present. SOFT TISSUES: The soft tissues are normal. VASCULATURE: Unremarkable. Normal in course and caliber. LYMPH NODES: Unremarkable. No enlarged lymph nodes. LUNG APICES: The lung apices are clear. IMPRESSION: Unremarkable noncontrasted CT of the soft tissues of the neck. Electronically signed by: Radah Leigh MD 12/23/2019 4:22 AM CDT
[2019-12-23] MEDS ORDERED: SODIUM CHLORIDE 0.9% 1000ML 1,000 ML IVS PRN (04:37)
[2019-12-23 05:12] VITALS: TEMP 97.3
[2019-12-23 05:32] VITALS: BP 86/56; O2SAT 96
[2019-12-23] MEDS ORDERED: ONDANSETRON ODT 8 MG TAB ONE (05:39)
[2019-12-23] MEDS ORDERED: ONDANSETRON ODT 8 MG TAB SL ONE (05:42)
== END 2019-12-23 05:45 | disposition short-term general hospital (02) ==
LOC: ER 02:15
DX: I62.9 Nontraumatic intracranial hemorrhage, unspecified (principal); R20.2 Paresthesia of skin; R53.1 Weakness; D72.828 Other elevated white blood cell count; D64.9 Anemia, unspecified; I95.9 Hypotension, unspecified; R94.4 Abnormal results of kidney function studies; M54.2 Cervicalgia; I10 Essential (primary) hypertension; Z98.890 Other specified postprocedural states; Z86.73 Personal history of transient ischemic attack (TIA), and cerebral infarction without residual deficits; Z79.899 Other long term (current) drug therapy; Z88.0 Allergy status to penicillin; Z91.040 Latex allergy status; Z88.5 Allergy status to narcotic agent; Z88.8 Allergy status to other drugs, medicaments and biological substances
CPT/HCPCS: 70450; 70492; 71045; 80053; 82550; 82553; 82948; 84484; 85025; 85610; 85730; 93005; J3010

== ENCOUNTER 2020-01-05 13:32 | Emergency (ER) | payer BC ==
[2020-01-05] MEDS ORDERED: fentaNYL CITRATE INJ 50 MCG/ML 2 ML AMP IV ONE ×2 (13:56→16:16)
[2020-01-05] MEDS ORDERED: SODIUM CHLORIDE 0.9% 1000ML 1,000 ML IVS ONE ×3 (13:56→16:41)
--- NOTE | 2020-01-05 14:03 | ED.PDOC ---
History of Present Illness - General Chief Complaint: Neuro Symptoms/Deficits Time Seen by Provider: 01/05/20 13:42 - History of Present Illness Initial Comments: 49 F with extensive pmh presents with spouse to ED c/o acute onset of right scalp swelling that began last night. Pt was recently with hemorrhagic stroke and had craniotomy performed. Skull plate was not replaced and pt is concerned that she has swelling around her brain. She called her specialist today and was instructed to go to the ED. Associated sx's of headache, loose stools, and subjective fever with chills. Denies h/o similar sx's as craniotomy was recent. She denies associated CP, SOB, cough, n/v, dizziness, and/or acute changes in urination. She is otherwise without any other signs, symptoms, or complaints at this time. Allergies/Adverse Reactions: Allergies Latex Allergy (Verified 01/28/19 15:38) Morphine Allergy (Verified 01/28/19 15:38) Pregabalin [From Lyrica] Allergy (Verified 02/05/19 12:32) Diphenhydramine [From Benadryl] Adverse Reaction (Verified 09/07/19 05:01) Penicillin G Adverse Reaction (Verified 09/07/19 05:01) Home Medications: Ambulatory Orders Diazepam 1 mg PO QAM 01/28/19 Diazepam 2 mg PO BEDTIME 01/28/19 HYDROcodone 10MG/APAP 325MG [[place] 10/325] 1 ea PO Q6H PRN 01/28/19 Promethazine Tab [Phenergan Tablet] 25 mg PO Q8HRS PRN 01/28/19 Zolpidem Tartrate [Ambien] 10 mg PO KIM-OTH-DAY 01/28/19 Cyanocobalamin [B-12 Compliance Injection] 1,000 mcg IM MONTHLY 09/07/19 Tizanidine HCl [Zanaflex] 4 mg PO TID 09/07/19 Lisinopril [Zestril] 20 mg PO DAILY 12/23/19 Simvastatin [Zocor] 20 mg PO DAILY 12/23/19 metroNIDAZOLE [Flagyl] 500 mg PO Q8H 12/23/19 Review of Systems - Review of Systems Constitutional: States: chills, fever, other - generalized fatigue EENTM: Denies: blurred vision, double vision, ear pain, throat pain Respiratory: Denies: cough, short of breath Cardiology: Denies: chest pain, palpitations Gastrointestinal/Abdominal: Denies: abdominal pain, constipation, nausea, vomiting Genitourinary: Denies: dysuria, frequency Musculoskeletal: Denies: back pain, neck pain Skin: Denies: dryness, rash Neurological: States: headache, other - swelling to right craniotomy site. Denies: numbness Hematologic/Lymphatic: Denies: easy bleeding, easy bruising Past Medical History (General) - Patient Medical History Hx Seizures: No Hx Stroke: No Hx Dementia: No Hx Asthma: No Hx of COPD: No Hx Cardiac Disorders: No Hx Congestive Heart Failure: No Hx Pacemaker: No Hx Hypertension: Yes Hx Thyroid Disease: No Hx Diabetes: No Hx Gastroesophageal Reflux: No Hx Renal Disease: No Hx Cancer: No Hx of HIV: No Hx Hepatitis C: No Hx MRSA: No - Vaccination History Hx Tetanus, Diphtheria Vaccination: Yes - 2018 Hx Influenza Vaccination: No Hx Pneumococcal Vaccination: No - Social History Hx Tobacco Use: No Hx Chewing Tobacco Use: No Hx Alcohol Use: No Hx Substance Use: No Hx Substance Use Treatment: No Hx Depression: No Hx Physical Abuse: No Hx Emotional Abuse: No Hx Suspected Abuse: No - Female History Patient : No Family Medical History - Family History Mother Family History: Unknown Father Living Status: Hx Family Cancer: Yes Physical Exam - Physical Exam General Appearance: Alert, Well Developed, Other - Mild distress Eye Exam: bilateral normal, bilateral other - conjunctiva nl, no scleral icterus ENT Exam: pharynx normal, other - mildly dry oral mucosa, scalp: right frontoparietal scalp soft with swelling and trace erythema, no underlying bone, no crepitance, no focal warmth, no exudate Neck: non-tender, full range of motion, supple, normal inspection, other - no meningeal signs Respiratory: lungs clear, normal breath sounds, no respiratory distress, no accessory muscle use Cardiovascular/Chest: normal peripheral pulses, no edema, no JVD, other - tachycardic with regular rhythm Gastrointestinal/Abdominal: normal bowel sounds, non tender, soft Extremities Exam: no edema Mental Status: alert, oriented x 3 inking machine tender Exam: normal speech, PERRL, other - EOM, CN's II-XII intact Motor/Sensory: no motor deficit, no sensory deficit Skin Exam: warm/dry, other - no rash Progress - Progress Progress: Ramiro Montejo DO [id number] Presents with concern for post-op infection overlying prior craniectomy. Bone flap has still no been placed and no signs of recent trauma. No clinical signs concerning for meningitis. I will perform imaging, provide appropriate pharmacotherapy, and continue to monitor/reassess. Dispo will depend on imaging results and overall course in ED; however, if admission is required then pt will require transfer to prior treating facility. 16:13 Rechecked pt with at bedside. JU ORTIZ. I have discussed lab findings, imaging results, and my clinical impression. I have discussed need for transfer and admission for further care. She is in agreement with plan. 16:[address] Conrad at [place], we discussed pt's case in ED along with clinical findings. He agrees with pt transfer. - Results/Orders Results/Orders: 01/05/20 13:57 Hold Metformin x 48Hrs [id number] BOLUS Sodium Chloride 0.9% 1000ML [Ns 1000 ml] 1,000 ml IVS ONCE 01/05/20 15:10 BLOOD CULTURE Stat 01/05/20 16:08 BOLUS Sodium Chloride 0.9% 1000ML [Ns 1000 ml] 1,000 ml IVS ONCE Cefepime [Maxipime] 2 gm Sodium Chl 0.9% 100Ml Mini-Bag [NS 100ml MINI-BAG+] 100 ml IVPB ONCE Vancomycin HCl Inj 1,700 mg Sodium Chloride 0.9% 500Ml [NS 500ml] 500 ml IVPB ONCE 01/05/20 16:41 BOLUS Sodium Chloride 0.9% 1000ML [Ns 1000 ml] 1,000 ml IVS ONCE Laboratory Results - last 24 hr 01/05/20 01/05/20 01/05/20 15:10 15:10 15:10 WBC 19.5 H RBC 3.71 L Hgb 11.2 L Hct 33.4 L MCV 90.1 MCH 30.2 MCHC 33.6 RDW 13.5 Plt Count 263 MPV 8.9 Absolute Neuts (auto) 15.30 H Absolute Lymphs (auto) 2.50 Absolute Monos (auto) 1.40 H Absolute Eos (auto) 0.10 Absolute Basos (auto) 0.10 Neutrophils % 78.8 H Lymphocytes % 12.8 L Monocytes % 7.2 Eosinophils % 0.5 L Basophils % 0.7 Sodium 135 Potassium 5.1 H Chloride 103 Carbon Dioxide 19 L Anion Gap 18.1 H BUN 25 H Creatinine 1.82 H BUN/Creatinine Ratio 13.7 Random Glucose 122 H Serum Osmolality 275.8 Lactic Acid 2.5 H* Calcium 9.3 Total Bilirubin 0.5 AST 44 H ALT 37 Alkaline Phosphatase 90 Serum Total Protein 8.7 H Albumin 3.8 Globulin 4.9 H Albumin/Globulin Ratio 0.8 L Urine Color Urine Appearance Urine pH Ur Specific [place] Urine Protein Urine Glucose (UA) Urine Ketones Urine Blood Urine Nitrite Urine Bilirubin Urine Urobilinogen Ur Leukocyte Esterase Urine RBC Urine WBC Ur Epithelial Cells Amorphous Sediment Urine Bacteria 01/05/20 16:05 WBC RBC Hgb Hct MCV MCH MCHC RDW Plt Count MPV Absolute Neuts (auto) Absolute Lymphs (auto) Absolute Monos (auto) Absolute Eos (auto) Absolute Basos (auto) Neutrophils % Lymphocytes % Monocytes % Eosinophils % Basophils % Sodium Potassium Chloride Carbon Dioxide Anion Gap BUN Creatinine BUN/Creatinine Ratio Random Glucose Serum Osmolality Lactic Acid Calcium Total Bilirubin AST ALT Alkaline Phosphatase Serum Total Protein Albumin Globulin Albumin/Globulin Ratio Urine Color Yellow Urine Appearance Sl cloudy Urine pH 5.0 Ur Specific [place] 1.015 Urine Protein 100 H Urine Glucose (UA) Negative Urine Ketones Negative Urine Blood Trace-lysed H Urine Nitrite Negative Urine Bilirubin Negative Urine Urobilinogen 0.2 Ur Leukocyte Esterase Negative Urine RBC 0-1 Urine WBC 0-1 Ur Epithelial Cells 1-3 Amorphous Sediment 3+ Urine Bacteria 1+ EXAM DESCRIPTION: Head w/wo Contrast CLINICAL HISTORY: s/p craniotomy with acute swelling COMPARISON: 23 December 2019 TECHNIQUE: Transaxial images were obtained pre and post administration of intravenous contrast media. Sagittal and coronal reconstruction was performed..This exam was performed according to our departmental dose-optimization program, which includes automated exposure control, adjustment of the mA and/or kV according to patient size and/or use of iterative reconstruction technique. FINDINGS: The paranasal sinuses and orbits as imaged are normal. The mastoid sinus air cells are clear. Patient is post a right frontal craniectomy. Exam reveals a small focus of infarction in the anterior right parietal lobe. Minimal enhancement is observed in the region. A epidural fluid collection is observed over the region of the craniectomy. It is slightly larger than seen previously. No new brain parenchymal abnormalities are seen. The ventricles are within range of normal. An old peripheral cortical focus of encephalomalacia is observed in the left cerebellar hemisphere. It oneil ins unchanged. No acute hemorrhage is detected. IMPRESSION: 1. The patient is post right frontal craniectomy. There is a fluid collection over the craniectomy site which is increased in size since previous exam. It has the appearance of serous fluid or CSF. 2. There is evidence of a subacute anterior right parietal infarction. No acute brain parenchymal abnormality is seen. Electronically sign ed by: Roland Jones MD 01/05/2020 4:00 PM CDT Departure - Departure Clinical Impression: Sepsis, Leukocytosis, Elevated serum creatinine, Lactic acid acidosis, Post op infection, History of craniotomy Time of Disposition: 16:17 Disposition: Transfer to Hospital Condition: Fair Departure Forms: ED Discharge - Pt. Copy, Patient Portal Self Enrollment Referrals: Rodolfo Monterroso MD [Primary Care Provider] - 1-2 Weeks Home Medications: Ambulatory Orders Diazepam 1 mg PO QAM 01/28/19 Diazepam 2 mg PO BEDTIME 01/28/19 HYDROcodone 10MG/APAP 325MG [[place] 10/325] 1 ea PO Q6H PRN 01/28/19 Promethazine Tab [Phenergan Tablet] 25 mg PO Q8HRS PRN 01/28/19 Zolpidem Tartrate [Ambien] 10 mg PO KIM-OTH-DAY 01/28/19 Cyanocobalamin [B-12 Compliance Injection] 1,000 mcg IM MONTHLY 09/07/19 Tizanidine HCl [Zanaflex] 4 mg PO TID 09/07/19 Lisinopril [Zestril] 20 mg PO DAILY 12/23/19 Simvastatin [Zocor] 20 mg PO DAILY 12/23/19 metroNIDAZOLE [Flagyl] 500 mg PO Q8H 12/23/19 Comments: Ramiro Montejo DO [facility] #[id number] Transfer to Outside Facility - Transfer Information Decision to Transfer Date: 01/05/20 Decision to Transfer Time: 16:17 Reason for Transfer: required specialist not available Accepting Facility: [facility]
--- NOTE | 2020-01-05 16:01 | CT ---
EXAM DESCRIPTION: Head w/wo Contrast CLINICAL HISTORY: s/p craniotomy with acute swelling COMPARISON: 23 December 2019 TECHNIQUE: Transaxial images were obtained pre and post administration of intravenous contrast media. Sagittal and coronal reconstruction was performed..This exam was performed according to our departmental dose-optimization program, which includes automated exposure control, adjustment of the mA and/or kV according to patient size and/or use of iterative reconstruction technique. FINDINGS: The paranasal sinuses and orbits as imaged are normal. The mastoid sinus air cells are clear. Patient is post a right frontal craniectomy. Exam reveals a small focus of infarction in the anterior right parietal lobe. Minimal enhancement is observed in the region. A epidural fluid collection is observed over the region of the craniectomy. It is slightly larger than seen previously. No new brain parenchymal abnormalities are seen. The ventricles are within range of normal. An old peripheral cortical focus of encephalomalacia is observed in the left cerebellar hemisphere. It remains unchanged. No acute hemorrhage is detected. IMPRESSION: 1. The patient is post right frontal craniectomy. There is a fluid collection over the craniectomy site which is increased in size since previous exam. It has the appearance of serous fluid or CSF. 2. There is evidence of a subacute anterior right parietal infarction. No acute brain parenchymal abnormality is seen. Electronically signed by: Roland Jones MD 01/05/2020 4:00 PM CDT
[2020-01-05] MEDS ORDERED: VANCOMYCIN HCL INJ 1,700 MG in SODIUM CHLORIDE 0.9% 500ML 500 ML IVPB ONE (16:08)
[2020-01-05] MEDS ORDERED: CEFEPIME 2 GM in SODIUM CHL 0.9% 100ML MINI-BAG 100 ML IVPB ONE (16:08)
[2020-01-05] MEDS ORDERED: CEFEPIME 2 GM VIAL ONE (16:12)
[2020-01-05] MEDS ORDERED: SODIUM CHL 0.9% 100ML MINI-BAG 100 ML IVPB ONE (16:12)
[2020-01-05] MEDS ORDERED: PROMETHAZINE HCL INJ 12.5 MG in SODIUM CHLORIDE 0.9% 50ML 50 ML IVPB ONE (16:16)
[2020-01-05] MEDS ORDERED: PROMETHAZINE HCL INJ 25 MG/ML VIAL ONE (16:57)
[2020-01-05] MEDS ORDERED: SODIUM CHLORIDE 0.9% 50ML 50 ML ONE (16:58)
[2020-01-05] MEDS ORDERED: VANCOMYCIN HCL INJ 1,000 MG VIAL IVPB ONE (17:15)
[2020-01-05] MEDS ORDERED: SODIUM CHLORIDE 0.9% 500ML 500 ML ONE (17:15)
[2020-01-05 17:45] VITALS: BP 136/80; TEMP 101.2; O2SAT 97
== END 2020-01-05 17:45 | disposition short-term general hospital (02) ==
LOC: ER 13:32
DX: T81.40XA Infection following a procedure, unspecified, initial encounter (principal); T81.44XA Sepsis following a procedure, initial encounter; D72.829 Elevated white blood cell count, unspecified; R94.4 Abnormal results of kidney function studies; R51 Headache; I10 Essential (primary) hypertension; Z86.73 Personal history of transient ischemic attack (TIA), and cerebral infarction without residual deficits; Z79.899 Other long term (current) drug therapy; Z91.040 Latex allergy status; Z88.5 Allergy status to narcotic agent; Z88.8 Allergy status to other drugs, medicaments and biological substances; Z88.0 Allergy status to penicillin; Y83.8 Other surgical procedures as the cause of abnormal reaction of the patient, or of later complication, without mention of misadventure at the time of the procedure
CPT/HCPCS: 36415; 70470; 80053; 81001; 83605; 85025; 87040; A4216; J0692; J2550; J3010; J3370; J7030; J7040; J7050

== ENCOUNTER 2020-03-16 22:41 | Emergency (ER) | payer BC ==
--- NOTE | 2020-03-16 23:17 | ED.PDOC ---
History of Present Illness - General Chief Complaint: Fever Stated Complaint: fever Time Seen by Provider: 03/16/20 22:42 Source: patient, RN notes reviewed, Vital Signs reviewed, family, old records Exam Limitations: no limitations - History of Present Illness Initial Comments: Patient is a 49-year-old female with complicated past medical history. States she has a history of fibromyalgia, hypertension and unknown type of autoimmune disease. She had an ischemic stroke in December of this year and was given TPA and transferred to [facility] where she eventually had a craniotomy for cerebral edema, then went back for bone flap placement on February 16 of this year. Her neurosurgeon is Dr. Lozano. She has had frequent infections over the past 3 months including from her craniotomy site and multiple abdominal wall abscesses. A drain was placed in her abdominal wall abscess and grew out fungus and she was started on Mycamine via PICC line. The drain has been removed but she is still on antifungals and an unknown oral antibiotic. Presents today for 2-day history of fever as high as 102 at home, body aches, headache, pain at her abdominal abscess site and pain at the craniotomy site. Also reports mild cough, nausea and occasional vomiting. She denies neck stiffness, shortness of breath, diarrhea. Her ID physician at [facility] is Dr. Roque. Review of Systems - Review of Systems Constitutional: States: chills, fever, malaise EENTM: States: nose congestion. Denies: eye pain, blurred vision, throat pain, throat swelling Respiratory: States: cough. Denies: short of breath Cardiology: Denies: chest pain, palpitations, syncope Gastrointestinal/Abdominal: States: nausea, vomiting. Denies: constipation, diarrhea Genitourinary: Denies: dysuria, frequency, hematuria Musculoskeletal: Denies: back pain, neck pain Neurological: States: headache. Denies: paresthesia, weakness All other Systems: Reviewed and Negative Past Medical History (General) - Patient Medical History Hx Seizures: No Hx Stroke: Yes - post craniotomy Hx Dementia: No Hx Asthma: No Hx of COPD: No Hx Cardiac Disorders: No Hx Congestive Heart Failure: No Hx Pacemaker: No Hx Hypertension: Yes Hx Thyroid Disease: No Hx Diabetes: No Hx Gastroesophageal Reflux: No Hx Renal Disease: No Hx Cancer: No Hx of HIV: No Hx Hepatitis C: No Hx MRSA: No Surgical History: cholecystectomy, Hysterectomy, other - Vaccination History Hx Tetanus, Diphtheria Vaccination: Yes Hx Influenza Vaccination: No Hx Pneumococcal Vaccination: No - Social History Hx Tobacco Use: No Hx Chewing Tobacco Use: No Hx Alcohol Use: No Hx Substance Use: No Hx Substance Use Treatment: No Hx Depression: No Hx Physical Abuse: No Hx Emotional Abuse: No Hx Suspected Abuse: No - Female History Patient : No Family Medical History - Family History Father Living Status: Hx Family Cancer: Yes Mother Family History: Unknown Physical Exam - Physical Exam General Appearance: Alert, No apparent distress Eye Exam: bilateral normal - PERRL ENT Exam: pharynx normal Neck: non-tender, full range of motion, supple Respiratory: chest non-tender, lungs clear, normal breath sounds, no respiratory distress, no accessory muscle use Cardiovascular/Chest: no edema, no murmur, tachycardia Gastrointestinal/Abdominal: soft, other - Firm area to right lower abdomen in the area of previously drained abscess. No drainage or open wound. Extremity: normal range of motion, non-tender, no pedal edema, other - PICC line in RUE Neurologic: no motor/sensory deficits, alert, normal mood/affect Skin Exam: normal color Progress - Progress Progress: 03/17/20 01:59 D/W pt initial lab results. She has leukocytosis of 20K, elevated lactic at 3.2 that improved with 2L IVF, CT showing fluid under cranial bone flap and collection of fluid with surrounding stranding to subQ area of lower abdomen where previous abscess was drained for which she is on Micafungin. She rrequests to call her ID doctor, Dr. Roque, in [facility]. I have paged him. 03/17/20 02:54 I have not recieved return call from Dr. roque. Pt requests transfer to [facility] as this is where her recent craniotomy was performed and where her ID physician is. D/W Dr. Julien, via [facility] transfer line, and he accepts pt to ED. - Results/Orders Results/Orders: EKG--sinus tachy, rate 133, nml intervals, nonspecific ST abnormality Chest Xray EXAM: XR Chest, 1 View CLINICAL HISTORY: The patient is 49 years old and is Female; fever TECHNIQUE: Frontal view of the chest. COMPARISON: Chest radiograph December 23, 2019 FINDINGS: LUNGS: Unremarkable. No consolidation. PL EURAL SPACE: Unremarkable. No pneumothorax. HEART: Unremarkable. No cardiomegaly. MEDIASTINUM: Unremarkable. BONES/JOINTS: Unremarkable. TUBES, LINES AND DEVICES: A right upper extremity PICC is present with tip in the SVC. IMPRESSION: No acute cardiopulmonary process. CT BRAIN FINDINGS: There are changes of a right craniotomy with interval placement of the bone flap from the prior craniectomy. There is an epidural fluid collection which measures up to 1.3 cm in thickness and may contain some blood products. There is thickening with calcifications along the dura along the craniotomy site. There is a 3 mm underlying subdural collection. There is no significant midline shift, downward herniation, or hydrocephalus. There is no acute cortical infarct or parenchymal hemorrhage. Again noted is an cephalization along the right parietal lobe and left cerebellum. The remainder of the diggs-white matter differentiation is preserved. The paranasal sinuses and mastoid air cells are clear. There is soft tissue swelling along the right frontoparietal scalp. IMPRESSION: Changes of a right craniotomy with interval placement of the bone flap from the prior exam. Thickening and calcifications of the underlying dura with an adjacent 1.3 cm epidural fluid collection and 3 mm subdural fluid collection without significant midline shift or downward herniation. The epidural component may contain some blood products. CT A/P FINDINGS: Motion limits some of this exam. Abdomen: There is minimal bibasilar atelectasis. There is fatty infiltration of the liver. The patient is status post cholecystectomy. The solid abdominal organs are otherwise unremarkable. There is no abdominal adenopathy. There is no free fluid or free air within the abdomen. The abdominal portion of the GI tract is unremarkable. Pelvis: There is again noted subcutaneous fluid collection along the anterior pelvic wall measuring approximately 6.0 x 1.0 x 4.5 cm. This appears not significantly changed in size. There is however greater subcutaneous fat stranding in the anterior pelvic wall adjacent to this collection. This may be related to cellulitis. There is no air within this fluid collection to suggest definite in fection but if there is high clinical concern consider aspiration. Favor this to represent old postoperative seroma or hematoma. The patient is status post hysterectomy. No free fluid is noted in the pelvis. There is no pelvic adenopathy. The pelvic portion of the GI tract including the appendix is unremarkable. No acute bony abnormality is noted. IMPRESSION: 1. Stable subcutaneous fluid collection in the anterior pelvic subcutaneous tissues that is likely old postoperative seroma or hematoma that may be related to the patient's prior hysterectomy. There is no air within this to suggest definite infection. There is however greater fat stranding around the collection that could be related to cellulitis and please correlate clinically. If there is high clinical concern for infection consider aspiration. 2. Fatty infiltration of the liver. 03/16/20 23:10 IV Care:Saline Lock per Protoc QSHIFT Telemetry .ONCE EKG Stat Pulse Ox Stat 03/16/20 23:11 Pulse Oximetry Assessment DAILY 03/16/20 23:12 Hold Metformin x 48Hrs [id number] 03/16/20 23:15 EKG STAT 03/16/20 23:30 BLOOD CULTURE Stat 03/17/20 02:55 SARS-COV2 RT-PCR HIGH RISK Stat Laboratory Results - last 24 hr 03/16/20 03/16/20 03/16/20 23:15 23:15 23:15 WBC 20.4 H* RBC 4.03 L Hgb 11.9 L Hct 35.8 L MCV 88.9 MCH 29.6 MCHC 33.3 RDW 13.5 Plt Count 348 MPV 8.7 Absolute Neuts (auto) Not Reportable Absolute Lymphs (auto) Not Reportable Absolute Monos (auto) Not Reportable Absolute Eos (auto) Not Reportable Neutrophils % Not Reportable Neutrophils % (Manual) 82.0 H Lymphocytes % Not Reportable Lymphocytes % (Manual) 8.0 Monocytes % Not Reportable Monocytes % (Manual) 7.0 Eosinophils % Not Reportable Basophils % Not Reportable Band Neutrophils 3.0 H Platelet Estimate Normal Normal RBC Morphology Normal rbc morph PT 11.2 H INR 1.13 PTT (SP) 24.7 Sodium 137 Potassium 3.2 L Chloride 103 Carbon Dioxide 21 Anion Gap 16.2 BUN 15 Creatinine 0.84 BUN/Creatinine Ratio 17.9 Random Glucose 162 H Serum Osmolality 278.2 Lactic Acid Calcium 9.4 Total Bilirubin 0.7 AST 45 H ALT 41 Alkaline Phosphatase 103 Creatine Kinase 15 L CK-MB (CK-2) 0.2 CK-MB (CK-2) % Not Reportable Troponin I < 0.02 Serum Total Protein 8.9 H Albumin 4.1 Globulin 4.8 H Albumin/Globulin Ratio 0.9 L Urine Color Urine Appearance Urine pH Ur Specific [place] Urine Protein Urine Glucose (UA) Urine Ketones Urine Blood Urine Nitrite Urine Bilirubin Urine Urobilinogen Ur Leukocyte Esterase Urine RBC Urine WBC Ur Epithelial Cells Urine Bacteria Urine Mucus 03/16/20 03/17/20 03/17/20 23:15 01:26 01:35 WBC RBC Hgb Hct MCV MCH MCHC RDW Plt Count MPV Absolute Neuts (auto) Absolute Lymphs (auto) Absolute Monos (auto) Absolute Eos (auto) Neutrophils % Neutrophils % (Manual) Lymphocytes % Lymphocytes % (Manual) Monocytes % Monocytes % (Manual) Eosinophils % Basophils % Band Neutrophils Platelet Estimate Normal RBC Morphology PT INR PTT (SP) Sodium Potassium Chloride Carbon Dioxide Anion Gap BUN Creatinine BUN/Creatinine Ratio Random Glucose Serum Osmolality Lactic Acid 3.2 H* 2.4 H* Calcium Total Bilirubin AST ALT Alkaline Phosphatase Creatine Kinase CK-MB (CK-2) CK-MB (CK-2) % Troponin I Serum Total Protein Albumin Globulin Albumin/Globulin Ratio Urine Color Yellow Urine Appearance Clear Urine pH 5.0 Ur Specific [place] 1.015 Urine Protein 30 Urine Glucose (UA) Negative Urine Ketones Negative Urine Blood Negative Urine Nitrite Negative Urine Bilirubin Negative Urine Urobilinogen 0.2 Ur Leukocyte Esterase Negative Urine RBC 0-1 Urine WBC 3-5 H Ur Epithelial Cells 1-3 Urine Bacteria Rare Urine Mucus Small Departure - Departure Clinical Impression: Severe sepsis, Abdominal wall abscess, H/O craniotomy, Fever in adult, Leukocytosis, unspecified, Elevated lactic acid level Time of Disposition: 02:58 Disposition: Transfer to Hospital Condition: Fair Departure Forms: ED Discharge - Pt. Copy, Patient Portal Self Enrollment Referrals: SINAI BARAHONA IV, DRILL SHARPENER [Primary Care Provider] - 1-2 Weeks Home Medications: Ambulatory Orders RX: Diazepam 1 mg PO QAM 01/28/19 RX: Diazepam 2 mg PO BEDTIME 01/28/19 RX: HYDROcodone 10MG/APAP 325MG [[place] 10/325] 1 ea PO Q6H PRN 01/28/19 RX: Promethazine Tab [Phenergan Tablet] 25 mg PO Q8HRS PRN 01/28/19 RX: Zolpidem Tartrate [Ambien] 10 mg PO KIM-OTH-DAY 01/28/19 Cyanocobalamin [B-12 Compliance Injection] 1,000 mcg IM MONTHLY 09/07/19 Tizanidine HCl [Zanaflex] 4 mg PO TID 09/07/19 Lisinopril [Zestril] 20 mg PO DAILY 12/23/19 Simvastatin [Zocor] 20 mg PO DAILY 12/23/19 metroNIDAZOLE [Flagyl] 500 mg PO Q8H 12/23/19 Comments: Pt had ischemic CVA in December, then craniotomy by Dr. Brambila for cerebral edema with bone falp placed February 16. Has been admitted and treated rrecently for fungal abscess to abdominal wall s/p drain and currently treated with Micafungin via PICC line by Dr. roque. Presents to ED for 2 day h/o fever to 102, pressure around craniotomy site and firm mass to right abdominal wall. CT brain shows fluid in epidural space at craniotomy site and CT A/P shows fluid collection in abdominal wall concerning for recurrent abscess with surrounding cellulitis. Has WBC count 20K and elevated lactic at 3.2. Given IVF, Levaquin. COVID swab sent. Transfer to Outside Facility - Transfer Information Decision to Transfer Date: 03/17/20 Decision to Transfer Time: 02:56 Reason for Transfer: specialized care not available Accepting Provider:: Jarret Julien Accepting Facility: [facility]
--- NOTE | 2020-03-16 23:48 | RAD ---
EXAM: XR Chest, 1 View CLINICAL HISTORY: The patient is 49 years old and is Female; fever TECHNIQUE: Frontal view of the chest. COMPARISON: Chest radiograph December 23, 2019 FINDINGS: LUNGS: Unremarkable. No consolidation. PLEURAL SPACE: Unremarkable. No pneumothorax. HEART: Unremarkable. No cardiomegaly. MEDIASTINUM: Unremarkable. BONES/JOINTS: Unremarkable. TUBES, LINES AND DEVICES: A right upper extremity PICC is present with tip in the SVC. IMPRESSION: No acute cardiopulmonary process. Electronically signed by: Radha Leigh MD 03/16/2020 11:46 PM CDT
[2020-03-16] MEDS: levoFLOXacin 500MG IV 500 MG in PREMIX BAG 1 BAG IVPB ONE (23:53)
[2020-03-16] MEDS: SODIUM CHLORIDE 0.9% 1000ML 1,000 ML IVS ONE (23:53)
[2020-03-16] MEDS: ACETAMINOPHEN 500 MG TAB PO ONE (23:54)
[2020-03-16] MEDS: SODIUM CHLORIDE 0.9% (FLUSH) 10 ML SYG IV PRN (23:54)
[2020-03-16] MEDS: ONDANSETRON INJ 4 MG/2 ML VIAL IV ONE (23:57)
[2020-03-17] MEDS: SODIUM CHLORIDE 0.9% 1000ML 1,000 ML IVS ONE (01:20)
--- NOTE | 2020-03-17 01:30 | CT ---
CT abdomen and pelvis with contrast on 03/17/2020 CLINICAL INDICATION: Fever, history of abdominal wall abscess TECHNIQUE: Multiple axial images are obtained throughout the abdomen and pelvis following the administration of IV contrast. This exam was performed according to our departmental dose-optimization program, which includes automated exposure control, adjustment of the mA and/or kV according to patient size and/or use of iterative reconstruction technique. Total DLP is 1012.43 mGy*cm. COMPARISON: 09/07/2019 FINDINGS: Motion limits some of this exam. Abdomen: There is minimal bibasilar atelectasis. There is fatty infiltration of the liver. The patient is status post cholecystectomy. The solid abdominal organs are otherwise unremarkable. There is no abdominal adenopathy. There is no free fluid or free air within the abdomen. The abdominal portion of the GI tract is unremarkable. Pelvis: There is again noted subcutaneous fluid collection along the anterior pelvic wall measuring approximately 6.0 x 1.0 x 4.5 cm. This appears not significantly changed in size. There is however greater subcutaneous fat stranding in the anterior pelvic wall adjacent to this collection. This may be related to cellulitis. There is no air within this fluid collection to suggest definite infection but if there is high clinical concern consider aspiration. Favor this to represent old postoperative seroma or hematoma. The patient is status post hysterectomy. No free fluid is noted in the pelvis. There is no pelvic adenopathy. The pelvic portion of the GI tract including the appendix is unremarkable. No acute bony abnormality is noted. IMPRESSION: 1. Stable subcutaneous fluid collection in the anterior pelvic subcutaneous tissues that is likely old postoperative seroma or hematoma that may be related to the patient's prior hysterectomy. There is no air within this to suggest definite infection. There is however greater fat stranding around the collection that could be related to cellulitis and please correlate clinically. If there is high clinical concern for infection consider aspiration. 2. Fatty infiltration of the liver. Electronically signed by: Jarret Uriostegui 03/17/2020 1:28 AM CDT
--- NOTE | 2020-03-17 01:36 | CT ---
EXAM: CT head without contrast. INDICATION: Headache. TECHNIQUE: Contiguous axial CT images of the brain. Intravenous contrast: Absent. DLP 859 mGy-cm. This exam was performed according to our departmental dose-optimization program, which includes automated exposure control, adjustment of the mA and/or kV according to patient size and/or use of iterative reconstruction technique. COMPARISON: 01/05/2020. FINDINGS: There are changes of a right craniotomy with interval placement of the bone flap from the prior craniectomy. There is an epidural fluid collection which measures up to 1.3 cm in thickness and may contain some blood products. There is thickening with calcifications along the dura along the craniotomy site. There is a 3 mm underlying subdural collection. There is no significant midline shift, downward herniation, or hydrocephalus. There is no acute cortical infarct or parenchymal hemorrhage. Again noted is an cephalization along the right parietal lobe and left cerebellum. The remainder of the diggs-white matter differentiation is preserved. The paranasal sinuses and mastoid air cells are clear. There is soft tissue swelling along the right frontoparietal scalp. IMPRESSION: Changes of a right craniotomy with interval placement of the bone flap from the prior exam. Thickening and calcifications of the underlying dura with an adjacent 1.3 cm epidural fluid collection and 3 mm subdural fluid collection without significant midline shift or downward herniation. The epidural component may contain some blood products. Electronically signed by: Seth Ding MD 03/17/2020 1:35 AM CDT
[2020-03-17] MEDS: ONDANSETRON INJ 4 MG/2 ML VIAL IV ONE (03:10)
[2020-03-17] MEDS: MORPHINE SULFATE INJ 10 MG/ML VIAL IV ONE (03:10)
[2020-03-17 03:59] VITALS: BP 142/92; TEMP 97.2; O2SAT 96
== END 2020-03-17 03:59 | disposition short-term general hospital (02) ==
LOC: ER 22:41
DX: A41.9 Sepsis, unspecified organism (principal); D72.829 Elevated white blood cell count, unspecified; L02.211 Cutaneous abscess of abdominal wall; R50.9 Fever, unspecified; R00.0 Tachycardia, unspecified; R74.0 Nonspecific elevation of levels of transaminase and lactic acid dehydrogenase [LDH]; M79.7 Fibromyalgia; I10 Essential (primary) hypertension; Z86.73 Personal history of transient ischemic attack (TIA), and cerebral infarction without residual deficits; K76.0 Fatty (change of) liver, not elsewhere classified; R11.2 Nausea with vomiting, unspecified
CPT/HCPCS: 36415; 70450; 71045; 74177; 80053; 81001; 82550; 82553; 83605; 84484; 85025; 85610; 85730; 87040; 87635; 93005; 94760; A4216; J1956; J2270; J2405; J7030

== ENCOUNTER → 2020-04-01 | Outpatient (CLI) | payer BC | LOC: LAB.O 13:24 | PROVIDERS: ATTEND Family Medicine | DX: I10 Essential (primary) hypertension (principal); A49.02 Methicillin resistant Staphylococcus aureus infection, unspecified site; I63.9 Cerebral infarction, unspecified ==

== ENCOUNTER 2020-04-24 15:54 | Emergency (ER) | payer BC ==
[2020-04-24] MEDS ORDERED: SODIUM CHLORIDE 0.9% 1000ML 2,000 ML ONE (16:01)
[2020-04-24] MEDS ORDERED: SODIUM CHLORIDE 0.9% 1000ML 2,000 ML IVS ONE (16:04)
[2020-04-24] MEDS ORDERED: MEROPENEM 1 GM in SODIUM CHL 0.9% 50ML MIN-BAG+ 50 ML IVPB ONE (16:05)
--- NOTE | 2020-04-24 16:08 | ED.PDOC ---
History of Present Illness - General Chief Complaint: Cardiovascular Problem Stated Complaint: Sharp Chest Pain Time Seen by Provider: 04/24/20 16:02 Source: patient Exam Limitations: no limitations - History of Present Illness Initial Comments: Pt reports that in the past hours she started to feel intermittent sharp CP. She denies SOB, cough, F/C. Pt says she also had mild N/V but denies diarrhea. She denies urinary symptoms. She felt like things were starting to black out, but didn't pass out. Pt reportedly had craniotomy and revision related to cerebral hemorrhage/CVA. Pt still taking BP meds at this time. Pt says she's on narcotic pain meds at home. Pt has PICC line place for ?abx because she had "staph infection." Timing/Duration: 1-3 hours Severity/Quality: moderate, severe, sharp Location: substernal Chest Pain Radiation: no radiation Activities at Onset: activity Improving Factors: nothing Worsening Factors: nothing Nitro Today/Relief: no nitro taken today Aspirin Treatment Today: no aspirin today Associated Symptoms: dizziness, fatigue, weakness Allergies/Adverse Reactions: Allergies Latex Allergy (Verified 04/24/20 19:44) Morphine Allergy (Verified 04/24/20 19:44) Pregabalin [From Lyrica] Allergy (Verified 04/24/20 19:44) Diphenhydramine [From Benadryl] Adverse Reaction (Verified 04/24/20 19:44) Penicillin G Adverse Reaction (Verified 04/24/20 19:44) Home Medications: Ambulatory Orders RX: Diazepam 1 mg PO QAM 01/28/19 RX: Diazepam 2 mg PO BEDTIME 01/28/19 RX: HYDROcodone 10MG/APAP 325MG [[place] 10/325] 1 ea PO Q6H PRN 01/28/19 RX: Promethazine Tab [Phenergan Tablet] 25 mg PO Q8HRS PRN 01/28/19 RX: Zolpidem Tartrate [Ambien] 10 mg PO KIM-OTH-DAY 01/28/19 Cyanocobalamin [B-12 Compliance Injection] 1,000 mcg IM MONTHLY 09/07/19 Tizanidine HCl [Zanaflex] 4 mg PO TID 09/07/19 Lisinopril [Zestril] 20 mg PO DAILY 12/23/19 Simvastatin [Zocor] 20 mg PO DAILY 12/23/19 metroNIDAZOLE [Flagyl] 500 mg PO Q8H 12/23/19 Review of Systems - Review of Systems Constitutional: States: malaise, weakness. Denies: chills, diaphoresis, fever EENTM: States: no symptoms reported, see HPI, eye pain, blurred vision Respiratory: States: no symptoms reported, see HPI, cough, orthopnea, short of breath Cardiology: States: chest pain, other - near syncope. Denies: edema, palpitations Gastrointestinal/Abdominal: States: no symptoms reported, nausea, vomiting. Denies: abdominal pain, constipation, diarrhea Musculoskeletal: States: no symptoms reported Skin: States: no symptoms reported Neurological: States: headache. Denies: numbness, paresthesia, tingling, tremors, weakness Past Medical History (General) - Patient Medical History Hx Seizures: No Hx Stroke: Yes - post craniotomy Hx Dementia: No Hx Asthma: No Hx of COPD: No Hx Cardiac Disorders: No Hx Congestive Heart Failure: No Hx Pacemaker: No Hx Hypertension: Yes Hx Thyroid Disease: No Hx Diabetes: No Hx Gastroesophageal Reflux: No Hx Renal Disease: No Hx Cancer: No Hx of HIV: No Hx Hepatitis C: No Hx MRSA: No - Vaccination History Hx Tetanus, Diphtheria Vaccination: Yes Hx Influenza Vaccination: No Hx Pneumococcal Vaccination: No - Social History Hx Tobacco Use: No Hx Chewing Tobacco Use: No Hx Alcohol Use: No Hx Substance Use: No Hx Substance Use Treatment: No Hx Depression: No Hx Physical Abuse: No Hx Emotional Abuse: No Hx Suspected Abuse: No - Female History Patient : No Family Medical History - Family History Father Living Status: Hx Family Cancer: Yes Mother Family History: Unknown Physical Exam - Physical Exam General Appearance: Alert, No apparent distress Eyes, Ears, Nose, Throat Exam: normal ENT inspection, TMs normal, pharynx normal, other - healed surgical incision on right side of scalp Neck: non-tender, full range of motion, supple Respiratory: chest non-tender, lungs clear, normal breath sounds, no respiratory distress, no accessory muscle use Cardiovascular/Chest: normal peripheral pulses, regular rate, rhythm, no edema, no gallop, no JVD, no murmur Gastrointestinal/Abdominal: normal bowel sounds, non tender, soft, no organomegaly Extremity: non-tender, normal inspection Neurologic: alert, normal mood/affect, oriented x 3 Skin Exam: normal color Progress - Progress Progress: 04/24/20 19:05 EKG sinus faisal 59, suboptimal, NSST changes, no ST elevations, no q waves. 04/25/20 00:10 D/w pt and all results below. Pt feels much better. SBP now in 120's. Pt looks and feels more alert, speech nl. I explained need for overnight observation. I explained my suspicion was dehydration and effect of antihypertensives as primary culprits. Sepsis a consideration, but pt afebrile with nl WBC and no obvious source. D/w ER physician at [facility] who accepted transfer. Departure - Departure Clinical Impression: Chest pain, Slurred speech, Hypotension, Dehydration, History of craniotomy, History of MRSA infection, Acute kidney injury, Lactic acid increased Time of Disposition: 17:57 Disposition: Transfer to Hospital Condition: Fair Departure Forms: ED Discharge - Pt. Copy, Patient Portal Self Enrollment Instructions: DI for Chest Pain Referrals: SINAI BARAHONA IV, OPERATING ROOM SURGICAL TECHNOLOGIST [Primary Care Provider] - 1-2 Weeks Home Medications: Ambulatory Orders RX: Diazepam 1 mg PO QAM 01/28/19 RX: Diazepam 2 mg PO BEDTIME 01/28/19 RX: HYDROcodone 10MG/APAP 325MG [[place] 10/325] 1 ea PO Q6H PRN 01/28/19 RX: Promethazine Tab [Phenergan Tablet] 25 mg PO Q8HRS PRN 01/28/19 RX: Zolpidem Tartrate [Ambien] 10 mg PO KIM-OTH-DAY 01/28/19 Cyanocobalamin [B-12 Compliance Injection] 1,000 mcg IM MONTHLY 09/07/19 Tizanidine HCl [Zanaflex] 4 mg PO TID 09/07/19 Lisinopril [Zestril] 20 mg PO DAILY 12/23/19 Simvastatin [Zocor] 20 mg PO DAILY 12/23/19 metroNIDAZOLE [Flagyl] 500 mg PO Q8H 12/23/19 Transfer to Outside Facility - Transfer Information Decision to Transfer Date: 04/24/20 Decision to Transfer Time: 17:57 Reason for Transfer: required specialist not available Accepting Facility: [facility]
--- NOTE | 2020-04-24 16:45 | CT ---
PROCEDURE: CT Head Without Intravenous Contrast CLINICAL INDICATION: The patient is 49 years years old, Female; low BP, slurred speech, h/o hemorrhagic CVA? TECHNIQUE: Axial computed tomography images of the head/brain without intravenous contrast. Sagittal and coronal reformatted images were created and reviewed. This CT exam was performed using one or more of the following dose reduction techniques: automated exposure control, adjustment of the mA and/or kV according to patient size, and/or use of iterative reconstruction technique. COMPARISON: CT head dated 03/17/2020 FINDINGS: BRAIN: A small hypodense focus in the left referral cerebellar hemisphere may represent an old infarct which is unchanged No intracerebral or extracerebral mass lesions are identified. Landon/white matter distinction is maintained. There is no evidence of intracranial hemorrhage. There are no areas of acute territorial infarct. (It should be noted that acute infarct may not be discernible in the first [address] ) MIDLINE SHIFT: There is no shift of the midline structures. VENTRICLES: The lateral ventricles are slightly prominent. BONES/JOINTS: Postoperative changes of a right craniectomy are again noted with removal of the bone flap previously demonstrated. In the interim, there has been evacuation of the previously demonstrated subdural and epidural hematomas dural calcification again noted on the right with subjacent focus of encephalomalacia or prior resection which appears similar. There is no acute calvarial abnormality or other discernible acute osseous abnormalities. SOFT TISSUES: The extracranial soft tissues are unremarkable. SINUSES: The visualized paranasal sinuses are clear. MASTOID AIR CELLS: The mastoids and middle ears are clear. IMPRESSION: 1. Postoperative changes of a right craniectomy are again noted with removal of the bone flap previously demonstrated. In the interim, there has been evacuation of the previously demonstrated subdural and epidural hematomas dural calcification again noted on the right with subjacent focus of encephalomalacia or prior resection which appears similar. 2. Remainder of findings as described above. Electronically signed by: Sera Haney MD 04/24/2020 4:43 PM CDT
--- NOTE | 2020-04-24 16:50 | RAD ---
EXAM DESCRIPTION: Chest x-ray 1 View CLINICAL HISTORY: low BP COMPARISON: March 16, 2020 FINDINGS: Cardiac silhouette is within normal limits. There is a right PICC line with the tip ending at the level of the right nominate vein. There is no focal parenchymal or pleural disease. There is no acute osseous process visualized. IMPRESSION: No evidence of acute cardiopulmonary disease. Electronically signed by: Alexi Sanchez MD 04/24/2020 4:48 PM CDT
[2020-04-24] MEDS ORDERED: NOREPINEPHRINE BITARTRATE 4 MG in DEXTROSE 5% 250ML 250 ML IVPB SCH (17:00)
[2020-04-24] MEDS ORDERED: fentaNYL CITRATE INJ 50 MCG/ML AMP IV ONE ×2 (19:02→20:12)
[2020-04-24 19:30] VITALS: TEMP 96.8
[2020-04-24 19:57] VITALS: BP 122/70; O2SAT 98
== END 2020-04-24 20:26 | disposition short-term general hospital (02) ==
LOC: ER 15:54
DX: R07.9 Chest pain, unspecified (principal); R47.81 Slurred speech; I95.9 Hypotension, unspecified; E86.0 Dehydration; N17.9 Acute kidney failure, unspecified; R00.1 Bradycardia, unspecified; R11.2 Nausea with vomiting, unspecified; E87.2 Acidosis; Z86.73 Personal history of transient ischemic attack (TIA), and cerebral infarction without residual deficits; Z79.899 Other long term (current) drug therapy; Z86.14 Personal history of Methicillin resistant Staphylococcus aureus infection
CPT/HCPCS: 36415; 70450; 71045; 80053; 83605; 84484; 84703; 85025; 85610; 87040; 93005; J2185; J3010; J7030; J7050; J7060

== ENCOUNTER 2020-09-22 18:52 | Emergency (ER) | payer BC ==
[2020-09-22] MEDS ORDERED: fentaNYL CITRATE INJ 50 MCG/ML 2 ML AMP IV ONE ×2 (19:16→21:45)
--- NOTE | 2020-09-22 19:27 | ED.PDOC ---
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 pain has been ongoing two days. States she also feels a fluid collection near her crainotomy sight. She did fall one week ago, did hit other side of head on bathtub. She saw her neurosurgeon the next day. no focal weakness. still has residual weakness of Left hand from prior stroke. no fever. states her vision is blurry. patient just completed 2 weeks of bactrim for her abdomen wound. Allergies/Adverse Reactions: Allergies Latex Allergy (Verified 04/24/20 19:44) Morphine Allergy (Verified 04/24/20 19:44) Pregabalin [From Lyrica] Allergy (Verified 04/24/20 19:44) Diphenhydramine [From Benadryl] Adverse Reaction (Verified 04/24/20 19:44) Penicillin G Adverse Reaction (Verified 04/24/20 19:44) Home Medications: Ambulatory Orders Diazepam 1 mg PO QAM 01/28/19 Diazepam 2 mg PO BEDTIME 01/28/19 HYDROcodone 10MG/APAP 325MG [[place] 10/325] 1 ea PO Q6H PRN 01/28/19 Promethazine Tab [Phenergan Tablet] 25 mg PO Q8HRS PRN 01/28/19 Zolpidem Tartrate [Ambien] 10 mg PO KIM-OTH-DAY 01/28/19 Cyanocobalamin [B-12 Compliance Injection] 1,000 mcg IM MONTHLY 09/07/19 Tizanidine HCl [Zanaflex] 4 mg PO TID 09/07/19 Lisinopril [Zestril] 20 mg PO DAILY 12/23/19 Simvastatin [Zocor] 20 mg PO DAILY 12/23/19 metroNIDAZOLE [Flagyl] 500 mg PO Q8H 12/23/19 Review of Systems - Review of Systems Constitutional: Denies: chills, fever, malaise EENTM: States: blurred vision. Denies: eye pain, double vision, ear pain, throat pain Respiratory: Denies: cough, short of breath Cardiology: Denies: chest pain, palpitations Gastrointestinal/Abdominal: Denies: abdominal pain, nausea, vomiting Genitourinary: Denies: dysuria, frequency Musculoskeletal: Denies: back pain, joint pain, muscle pain, neck pain Skin: States: other - wound vac on abdomen from scar revision surgery . Denies: rash Neurological: States: headache, numbness - chronic left hand, paresthesia - chronic left hand, pre-existing deficit Endocrine: Denies: unexplained weight gain, unexplained weight loss Hematologic/Lymphatic: Denies: easy bleeding, easy bruising Past Medical History (General) - Patient Medical History Hx Seizures: No Hx Stroke: Yes - post craniotomy Hx Dementia: No Hx Asthma: No Hx of COPD: No Hx Cardiac Disorders: No Hx Congestive Heart Failure: No Hx Pacemaker: No Hx Hypertension: Yes Hx Thyroid Disease: No Hx Diabetes: No Hx Gastroesophageal Reflux: No Hx Renal Disease: No Hx Cancer: No Hx of HIV: No Hx Hepatitis C: No Hx MRSA: No - Vaccination History Hx Tetanus, Diphtheria Vaccination: Yes Hx Influenza Vaccination: Yes Hx Pneumococcal Vaccination: No Immunizations Up to Date: Yes - Social History Hx Tobacco Use: No Hx Chewing Tobacco Use: No Hx Alcohol Use: No Hx Substance Use: No Hx Substance Use Treatment: No Hx Depression: No Hx Physical Abuse: No Hx Emotional Abuse: No Hx Suspected Abuse: No - Female History Patient is a Female of Child Bearing Age (10 -59 yrs old): Yes Patient : No Family Medical History - Family History Mother Family History: Unknown Father Family History: Unknown Living Status: Hx Family Cancer: Yes Physical Exam - Physical Exam General Appearance: Alert, Comfortable, No apparent distress, Well Developed, Well Groomed, Well Hydrated, Well Nourished Eyes, Ears, Nose, Throat Exam: PERRL/EOMI, normal ENT inspection, TMs normal Neck: non-tender, full range of motion, supple, normal inspection, trachea midline Cardiovascular/Chest: normal peripheral pulses, no edema, no gallop, no JVD, no murmur, tachycardia Respiratory: chest non-tender, lungs clear, normal breath sounds, no respiratory distress, no accessory muscle use Gastrointestinal/Abdominal: normal bowel sounds, non tender, soft, no organomegaly, other - wound vac noted on right Lower abdomen. 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 Progress - Progress Progress: 09/22/20 20:33 partial ddx: ICH, abscess, infection, fibromyalgia. went to [facility], but states she is legally blind without contacts, which she currently does not have on 09/22/20 20:30 patient was getting ready for discharge asking for Dilaudid before she leaves. After pain medication and zofran patient became itchy. scratching right arm. She was given steroids for both headache and for rash/itching of left arm. After steroids she complained of burning sensation in her entire body. Will give another course of IVF. States Benadryl gives her restless leg syndrome. 09/22/20 21:41 09/22/20 22:02 09/22/20 22:04 - Results/Orders Results/Orders: 09/22/20 19:17 EKG Assessment ONCE 09/22/20 19:30 EKG STAT 09/22/20 19:58 Sodium Chloride 0.9% 1000ML [Ns 1000 ml] 1,000 ml IVS ONCE 09/22/20 20:04 BLOOD CULTURE Stat Laboratory Results WBC 8.6 K/mm3 (4.8-10.8) 09/22/20 20:04 RBC 4.60 M/mm3 (4.20-5.40) 09/22/20 20:04 Hgb 13.8 gm/dL (12.0-16.0) 09/22/20 20:04 Hct 40.3 % (36.0-47.0) 09/22/20 20:04 MCV 87.6 fl (81.0-99.0) 09/22/20 20:04 MCH 30.0 pg (27.0-31.0) 09/22/20 20:04 MCHC 34.3 g/dL (33.0-37.0) 09/22/20 20:04 RDW 13.2 % (11.5-14.5) 09/22/20 20:04 Plt Count 304 K/mm3 (130-400) 09/22/20 20:04 MPV 8.4 fl (7.40-10.4) 09/22/20 20:04 Absolute Neuts (auto) 4.90 K/uL (1.8-6.8) 09/22/20 20:04 Absolute Lymphs (auto) 2.90 K/uL (1.0-3.4) 09/22/20 20:04 Absolute Monos (auto) 0.50 K/uL (0.2-0.8) 09/22/20 20:04 Absolute Eos (auto) 0.10 K/uL (0.0-0.4) 09/22/20 20:04 Absolute Basos (auto) 0.10 K/uL (0.0-0.1) 09/22/20 20:04 Neutrophils % 57.2 % (42.0-78.0) 09/22/20 20:04 Lymphocytes % 33.9 % (20.0-50.0) 09/22/20 20:04 Monocytes % 6.4 % (2.0-9.0) 09/22/20 20:04 Eosinophils % 1.3 % (1.0-5.0) 09/22/20 20:04 Basophils % 1.2 % (0.0-2.0) 09/22/20 20:04 PT 11.4 SECONDS (9.0-10.9) H 09/22/20 20:04 INR 1.15 (0.9-1.15) 09/22/20 20:04 PTT (SP) 26.7 SECONDS (21.8-31.6) 09/22/20 20:04 Sodium 140 mmol/L (135-145) 09/22/20 20:05 Potassium 3.6 mmol/L (3.6-5.0) 09/22/20 20:05 Chloride 100 mmol/L (101-111) L 09/22/20 20:05 Carbon Dioxide 26 mmol/L (21-31) 09/22/20 20:05 Anion Gap 17.6 (12-18) 09/22/20 20:05 BUN 16 mg/dL (7-18) 09/22/20 20:05 Creatinine 1.11 mg/dL (0.6-1.3) 09/22/20 20:05 BUN/Creatinine Ratio 14.4 (10-20) 09/22/20 20:05 Random Glucose 110 mg/dL (70-105) H 09/22/20 20:05 Serum Osmolality 281.2 mOsm/L (275-295) 09/22/20 20:05 Lactic Acid 1.9 mmol/L (0.5-2.2) 09/22/20 20:04 Calcium 9.3 mg/dL (8.4-10.2) 09/22/20 20:05 Phosphorus 5.3 mg/dL (2.5-4.6) H 09/22/20 20:04 Magnesium 1.7 mg/dL (1.8-2.5) L 09/22/20 20:04 Total Bilirubin 0.6 mg/dL (0.2-1.0) 09/22/20 20:05 AST 40 IU/L (10-42) 09/22/20 20:05 ALT 47 IU/L (10-60) 09/22/20 20:05 Alkaline Phosphatase 86 IU/L (42-121) 09/22/20 20:05 Troponin I < 0.02 ng/mL (0.01-0.05) 09/22/20 20:05 C-Reactive Protein 1.3 mg/dL (0-1.0) H 09/22/20 20:04 Serum Total Protein 8.9 gm/dL (6.4-8.2) H 09/22/20 20:05 Albumin 4.2 g/dl (3.2-5.5) 09/22/20 20:05 Globulin 4.7 gm/dL (2.3-3.5) H 09/22/20 20:05 Albumin/Globulin Ratio 0.9 (1.1-1.9) L 09/22/20 20:05 - EKG/XRAY/CT EKG: Sinus, Tachy - HR 125, Unchanged from - poor r wave progression Comments: ST and T wave changes in inferiorlateral leads, more pronounced 09/07/19 XRAY: chest - no acute cardiopulmonary pathology CT: head no acute change when compared to prior Departure - Departure Clinical Impression: Headache Qualifiers: Headache type: unspecified Headache chronicity pattern: unspecified pattern Intractability: not intractable Qualified Code(s): R51.9 - Headache, unspecified Adverse reaction to drug Qualifiers: Encounter type: initial encounter Qualified Code(s): T50.905A - Adverse effect of unspecified drugs, medicaments and biological substances, initial encounter Time of Disposition: 20:46 Disposition: Discharge to Home or Self Care Departure Forms: ED Discharge - Pt. Copy, Patient Portal Self Enrollment Instructions: DI for Headache, Headache, Adult Diet: resume usual diet Activity: increase activity as tolerated Referrals: SNIAI BARAHONA IV, EXTENSION COURSE COUNSELOR [Primary Care Provider] - 1-2 Days Home Medications: Ambulatory Orders Diazepam 1 mg PO QAM 01/28/19 Diazepam 2 mg PO BEDTIME 01/28/19 HYDROcodone 10MG/APAP 325MG [[place] 10/325] 1 ea PO Q6H PRN 01/28/19 Promethazine Tab [Phenergan Tablet] 25 mg PO Q8HRS PRN 01/28/19 Zolpidem Tartrate [Ambien] 10 mg PO KIM-OTH-DAY 01/28/19 Cyanocobalamin [B-12 Compliance Injection] 1,000 mcg IM MONTHLY 09/07/19 Tizanidine HCl [Zanaflex] 4 mg PO TID 09/07/19 Lisinopril [Zestril] 20 mg PO DAILY 12/23/19 Simvastatin [Zocor] 20 mg PO DAILY 12/23/19 metroNIDAZOLE [Flagyl] 500 mg PO Q8H 12/23/19
[2020-09-22] MEDS ORDERED: SODIUM CHLORIDE 0.9% 1000ML 1,000 ML IVS ONE ×2 (19:58→21:15)
[2020-09-22] MEDS ORDERED: HYDROmorphone HCL INJ 2 MG/ML VIAL IV ONE (20:34)
--- NOTE | 2020-09-22 20:43 | CT ---
EXAM DESCRIPTION: Head 09/22/2020 8:37 PM ERP ENGINEER CLINICAL HISTORY: 50 years, Female, crainotomy, laurent, fluid collection COMPARISON: 04/24/2020-03/17/2020. FINDINGS: Multiple transaxial tomograms of the brain were obtained from the base of the skull to the vertex without contrast. 2-D multiplanar reformats and the coronal and sagittal plane were performed and reviewed. An individualized dose optimization technique, Automated Exposure Control, was utilized for the performed procedure. A small hypodense focus in the left referral cerebellar hemisphere may represent an old infarct which is unchanged in comparison with prior study. No intra-/or extra axial fluid collections are identified. There is normal diggs-white matter differentiation. There is no evidence for intracranial hemorrhage. There is no midline shift and/or significant mass effect There are no areas of acute territorial infarct. The lateral ventricles are slightly prominent. Postoperative changes of a right craniectomy are again noted with removal of the bone flap previously demonstrated. In the interim, there has been evacuation of the previously demonstrated subdural and epidural hematomas dural calcification again noted on the right with subjacent focus of encephalomalacia or prior resection which appears similar. There is no acute calvarial abnormality or other discernible acute osseous abnormalities. The paranasal sinuses, mastoid air cells and orbits demonstrate to be within normal limits. IMPRESSION: STATUS POST RIGHT CRANIECTOMY ARE AGAIN NOTED WITH REMOVAL OF THE BONE FLAP WITH PREVIOUS EVACUATION OF THE PREVIOUSLY SUBDURAL AND EPIDURAL HEMATOMAS DURAL CALCIFICATION AGAIN NOTED ON THE RIGHT WITH SUBJACENT FOCUS OF ENCEPHALOMALACIA OR PRIOR RESECTION AND CHANGE IN COMPARISON WITH PRIOR STUDY. Electronically signed by: Roland Walker MD 09/22/2020 8:42 PM ERP ENGINEER
--- NOTE | 2020-09-22 20:45 | RAD ---
EXAM: XR Chest, 1 View CLINICAL HISTORY: tachycardia, palpations TECHNIQUE: Frontal view of the chest. COMPARISON: 04/24/2020 FINDINGS: Lungs: No consolidation. Symmetrical vascular pattern. Pleural space: No pneumothorax or pleural effusion. Heart: Normal cardiac size and configuration. Mediastinum: No abnormality noted. Bones/joints: No osseous destruction or sclerosis noted. IMPRESSION: No abnormality noted. Electronically signed by: Francheska Zambrano MD 09/22/2020 8:44 PM RIVET PASSER
[2020-09-22] MEDS ORDERED: ONDANSETRON INJ 4 MG/2 ML VIAL IV ONE (20:49)
[2020-09-22] MEDS ORDERED: ONDANSETRON INJ 4 MG/2 ML VIAL ONE (20:51)
[2020-09-22] MEDS ORDERED: DEXAMETHASONE 4 MG TAB PO ONE (21:01)
[2020-09-22] MEDS ORDERED: DEXAMETHASONE INJ 10 MG/ML VIAL IV ONE (21:10)
[2020-09-22] MEDS ORDERED: DEXAMETHASONE INJ 10 MG/ML VIAL ONE (21:12)
[2020-09-22 22:08] VITALS: BP 151/96
[2020-09-22 22:21] VITALS: TEMP 97.4; O2SAT 96
== END 2020-09-22 20:16 | disposition home or self-care (01) ==
LOC: ER 18:52
DX: R51.9 Headache, unspecified (principal); L27.1 Localized skin eruption due to drugs and medicaments taken internally; T40.2X5A Adverse effect of other opioids, initial encounter; H54.8 Legal blindness, as defined in USA; I69.334 Monoplegia of upper limb following cerebral infarction affecting left non-dominant side; Z98.890 Other specified postprocedural states; Z79.899 Other long term (current) drug therapy; Z91.041 Radiographic dye allergy status; Z88.5 Allergy status to narcotic agent; Z88.8 Allergy status to other drugs, medicaments and biological substances; Z88.0 Allergy status to penicillin
CPT/HCPCS: 36415; 70450; 71045; 80053; 83605; 83735; 84100; 84484; 85025; 85610; 85730; 86140; 87040; 93005; J1100; J1170; J2405; J3010; J7030; J8540

== ENCOUNTER 2020-10-20 21:40 | Emergency (ER) | payer BC, OTHER ==
[2020-10-20 22:00] VITALS: TEMP 97.3
[2020-10-20] MEDS ORDERED: NEOMYCIN-BACITRACIN-POLYMYXIN 0.9 GM UD TOP ONE (22:22)
[2020-10-20] MEDS ORDERED: LORazepam 0.5 MG TAB PO ONE (22:39)
[2020-10-20] MEDS ORDERED: POTASSIUM CHLORIDE ELIXIR 20 MEQ/15 ML UD PO ONE (22:48)
[2020-10-20] MEDS ORDERED: CIPROFLOXACIN 500 MG TAB PO ONE (23:06)
--- NOTE | 2020-10-20 23:13 | CT ---
EXAM DESCRIPTION: Head 10/20/2020 11:06 PM ORACLE TECHNICAL ARCHITECT CLINICAL HISTORY: 50 years, Female, pt concern for rec abscess form at crani site COMPARISON: 09/22/2020. FINDINGS: Multiple transaxial tomograms of the brain were obtained from the base of the skull to the vertex without contrast. 2-D multiplanar reformats and the coronal and sagittal plane were performed and reviewed. An individualized dose optimization technique, Automated Exposure Control, was utilized for the performed procedure. A small hypodense focus in the left cerebellar hemisphere may represent an old. No intra-/or extra axial fluid collections are identified. There is normal diggs-white matter differentiation. There is no evidence for intracranial hemorrhage. There is no midline shift and/or significant mass effect. There are no areas of acute territorial infarct. The lateral ventricles are unremarkable. Postoperative changes of a right craniectomy are again noted with removal of the bone flap. In the interim, there has been evacuation of the previously demonstrated subdural and epidural hematomas dural calcification again noted on the right with subjacent focus of encephalomalacia or prior resection which appears similar. There is no acute calvarial abnormality or other discernible acute osseous abnormalities. The paranasal sinuses, mastoid air cells and orbits demonstrate to be within normal limits. IMPRESSION: STATUS POST RIGHT CRANIECTOMY ARE AGAIN NOTED WITH REMOVAL OF THE BONE FLAP WITH PREVIOUS EVACUATION OF THE PREVIOUSLY SUBDURAL AND EPIDURAL HEMATOMAS. DURAL CALCIFICATION AGAIN NOTED ON THE RIGHT WITH SUBJACENT FOCUS OF ENCEPHALOMALACIA OR PRIOR RESECTION, NO INTERVAL CHANGE. Electronically signed by: Roland Walker MD 10/20/2020 11:11 PM ORACLE TECHNICAL ARCHITECT
--- NOTE | 2020-10-20 23:25 | ED.PDOC ---
History of Present Illness - General Chief Complaint: Wound Recheck Stated Complaint: wound check Time Seen by Provider: 10/20/20 22:03 Source: patient Exam Limitations: no limitations - History of Present Illness Initial Comments: The patient is a 50-year-old female presented emergency room secondary to concern for recurrent infection. The patient has a wound VAC to the right lower quadrant that has been put on around 10 days ago. It obviously needs to be removed. It is supposed to be changed every 3 days but she has not been able to get to the wound nurse. The wound VAC was removed here and the wound is actually very superficial at this point. Wound culture was taken. The patient is also concerned for the possibility of recurrence of a abscess at her c raniotomy site. There is no erythema no tenderness to palpation. She reports that she just does not feel good. She has mild right flank pain as well. No real urinary symptoms otherwise. No fever. No altered mental status. Patient does have an elevated blood pressure here but she is highly anxious and has not yet taken her evening benzos and opiates. She does have a history of very large blood pressure swings when she takes her anxiety and pain medications. She is alert and oriented. No meningeal signs. No skin rash. When the wound VAC is removed there is a 1 cm x 8 cm x 1 cm deep wound that is residual with good granulation tissue. Timing/Duration: 24 hours Severity: moderate Improving Factors: nothing Worsening Factors: nothing Associated Symptoms: malaise Allergies/Adverse Reactions: Allergies Latex Allergy (Verified 04/24/20 19:44) Morphine Allergy (Verified 04/24/20 19:44) Pregabalin [From Lyrica] Allergy (Verified 04/24/20 19:44) Diphenhydramine [From Benadryl] Adverse Reaction (Verified 04/24/20 19:44) Penicillin G Adverse Reaction (Verified 04/24/20 19:44) Home Medications: Ambulatory Orders Diazepam 1 mg PO QAM 01/28/19 Diazepam 2 mg PO BEDTIME 01/28/19 HYDROcodone 10MG/APAP 325MG [[place] 10/325] 1 ea PO Q6H PRN 01/28/19 Promethazine Tab [Phenergan Tablet] 25 mg PO Q8HRS PRN 01/28/19 Zolpidem Tartrate [Ambien] 10 mg PO KIM-OTH-DAY 01/28/19 Cyanocobalamin [B-12 Compliance Injection] 1,000 mcg IM MONTHLY 09/07/19 Tizanidine HCl [Zanaflex] 4 mg PO TID 09/07/19 Lisinopril [Zestril] 20 mg PO DAILY 12/23/19 Simvastatin [Zocor] 20 mg PO DAILY 12/23/19 metroNIDAZOLE [Flagyl] 500 mg PO Q8H 12/23/19 Ciprofloxacin [Cipro] 500 mg PO BID #14 tab 10/20/20 Review of Systems - Review of Systems Constitutional: States: malaise EENTM: States: no symptoms reported Respiratory: States: no symptoms reported Cardiology: States: no symptoms reported Gastrointestinal/Abdominal: States: abdominal pain - At the wound VAC site Genitourinary: States: no symptoms reported Musculoskeletal: States: other - Right flank pain Skin: States: no symptoms reported Neurological: States: no symptoms reported Endocrine: States: no symptoms reported All other Systems: No Change from Baseline Past Medical History (General) - Patient Medical History Hx Seizures: No Hx Stroke: Yes - post craniotomy Hx Dementia: No Hx Asthma: No Hx of COPD: No Hx Cardiac Disorders: No Hx Congestive Heart Failure: No Hx Pacemaker: No Hx Hypertension: Yes Hx Thyroid Disease: No Hx Diabetes: No Hx Gastroesophageal Reflux: No Hx Renal Disease: No Hx Cancer: No Hx of HIV: No Hx Hepatitis C: No Hx MRSA: No - Vaccination History Hx Tetanus, Diphtheria Vaccination: Yes Hx Influenza Vaccination: Yes Hx Pneumococcal Vaccination: No - Social History Hx Tobacco Use: No Hx Chewing Tobacco Use: No Hx Alcohol Use: No Hx Substance Use: No Hx Substance Use Treatment: No Hx Depression: No Hx Physical Abuse: No Hx Emotional Abuse: No Hx Suspected Abuse: No - Female History Patient : No Family Medical History - Family History Mother Family History: Unknown Father Family History: Unknown Living Status: Hx Family Cancer: Yes Physical Exam - Physical Exam General Appearance: Alert, Anxious, No apparent distress Eye Exam: bilateral normal Ears, Nose, Throat: hearing grossly normal, normal pharynx Neck: full range of motion, supple Respiratory: lungs clear, normal breath sounds, no respiratory distress, no accessory muscle use Cardiovascular/Chest: normal peripheral pulses, regular rate, rhythm, no edema Peripheral Pulses: radial,right: 2+, radial,left: 2+ Gastrointestinal/Abdominal: non tender, soft Rectal Exam: deferred Back Exam: no CVA tenderness, no vertebral tenderness Extremity: normal range of motion, non-tender, normal inspection, no pedal edema, normal capillary refill Neurologic: scrap stripper hand II-XII nml as tested, alert, normal mood/affect - She is anxious, oriented x 3 Skin Exam: normal color Comments: Vital Signs - 24 hr 10/20/20 10/20/20 21:56 22:41 Temperature 97.3 F L Pulse Rate [ 120 H 108 H Left Radial] Respiratory 18 18 Rate Blood Pressure 194/130 191/114 [Left Arm] O2 Sat by Pulse 96 97 Oximetry Progress - Progress Progress: 10/20/20 23:26 The patient is a 50-year-old female presenting to the emergency room for concern of recurrence of infection. The wound VAC can be discontinued at this point. She needs to wash the abdominal wound with soap and water once puma ly and apply Neosporin and a gauze over it afterwards. The wound VAC is no longer needed. CT scan of the head shows no evidence of any reformation of the postoperative site abscess. CRP is fairly low and there is no elevation of white blood cell count. No nuchal rigidity or meningeal signs. I do not believe she has any recurrent infection at that site. The patient does however have a urinary tract infection and likely early pyelonephritis on the right. She is going to be placed on 7 days of ciprofloxacin. She does need to increase her fluid intake. Additionally she does have a mildly low potassium. She was given a dose of potassium here. She is to have the level rechecked with her primary care doctor in 2 to 3 weeks. ER warnings are given for any significant worsening. Blood and wound and urine cultures have been performed. Additionally the patient does have some significant hypertension here. The patient has a very significant history of hypertensive and hypotensive episodes. The patient has not yet taken her very large quantities of benzodiazepines and opiates that she takes at night. As has been demonstrated in the past, after she takes these medications there is a marked drop in the blood pressures. For this reason she is not receiving a blood pressure medication here tonight. I do not believe her symptoms are due to the elevated blood pressure. I do want her to record her blood pressure several times daily and take them to her primary care doctor in a few weeks. lg jose david [id number] - Results/Orders Results/Orders: Head CT shows chronic changes but no acute changes. Rapid coronavirus test is negative. Laboratory Tests 10/20/20 10/20/20 10/20/20 22:36 22:36 22:52 WBC 8.7 RBC 4.32 Hgb 12.9 Hct 37.7 MCV 87.2 MCH 29.7 MCHC 34.1 RDW 12.9 Plt Count 299 MPV 8.1 Absolute Neuts (auto) 5.30 Absolute Lymphs (auto) 2.60 Absolute Monos (auto) 0.40 Absolute Eos (auto) 0.20 Absolute Basos (auto) 0.10 Neutrophils % 61.5 Lymphocytes % 30.5 Monocytes % 4.8 Eosinophils % 2.0 Basophils % 1.2 Sodium 142 Potassium 3.0 L Chloride 101 Carbon Dioxide 29 Anion Gap 15.0 BUN 15 Creatinine 0.90 BUN/Creatinine Ratio 16.7 Random Glucose 136 H Serum Osmolality 286.0 Calcium 9.0 Total Bilirubin 0.5 AST 28 ALT 24 Alkaline Phosphatase 90 C-Reactive Protein 2.4 H Serum Total Protein 7.9 Albumin 4.0 Globulin 3.9 H Albumin/Globulin Ratio 1.0 L Urine Color Yellow Urine Appearance Cloudy Urine pH 6.0 Ur Specific [place] 1.025 Urine Protein 100 H Urine Glucose (UA) Negative Urine Ketones Trace Urine Blood Trace-lysed H Urine Nitrite Negative Urine Bilirubin Negative Urine Urobilinogen 0.2 Ur Leukocyte Esterase Moderate H Urine RBC 0-1 Urine WBC 20-30 H Ur Epithelial Cells 0-1 Urine Bacteria 0 Departure - Departure Clinical Impression: Hypokalemia Open abdominal wall wound Qualifiers: Encounter type: initial encounter Qualified Code(s): S31.109A - Unspecified open wound of abdominal wall, unspecified quadrant without penetration into peritoneal cavity, initial encounter Urinary tract infection Qualifiers: Urinary tract infection type: acute cystitis Hematuria presence: without hematuria Qualified Code(s): N30.00 - Acute cystitis without hematuria Hypertension Qualifiers: Hypertension type: essential hypertension Qualified Code(s): I10 - Essential (primary) hypertension Disposition: Discharge to Home or Self Care Condition: Fair Departure Forms: ED Discharge - Pt. Copy, Patient Portal Self Enrollment Diet: regular diet Activity: increase activity as tolerated Referrals: SIN[facility] BARAHONA [facility] [Primary Care Provider] - 1-2 Weeks Prescriptions: Ciprofloxacin [Cipro] 500 mg PO BID #14 tab Home Medications: Ambulatory Orders Diazepam 1 mg PO QAM 01/28/19 Diazepam 2 mg PO BEDTIME 01/28/19 HYDROcodone 10MG/APAP 325MG [[place] 10325] 1 ea PO Q6H PRN 01/28/19 Promethazine Tab [Phenergan Tablet] 25 mg PO Q8HRS PRN 01/28/19 Zolpidem Tartrate [Ambien] 10 mg PO KIM-OTH-DAY 01/28/19 Cyanocobalamin [B-12 Compliance Injection] 1,000 mcg IM MONTHLY 09/07/19 Tizanidine HCl [Zanaflex] 4 mg PO TID 09/07/19 Lisinopril [Zestril] 20 mg PO DAILY 12/23/19 Simvastatin [Zocor] 20 mg PO DAILY 12/23/19 metroNIDAZOLE [Flagyl] 500 mg PO Q8H 12/23/19 Ciprofloxacin [Cipro] 500 mg PO BID #14 tab 10/20/20 Additional Instructions: The patient is a 50-year-old female presenting to the emergency room for concern of recurrence of infection. The wound VAC can be discontinued at this point. She needs to wash the abdominal wound with soap and water once daily and apply Neosporin and a gauze over it afterwards. The wound VAC is no longer needed. CT scan of the head shows no evidence of any reformation of the postoperative site abscess. CRP is fairly low and there is no elevation of white blood cell count. No nuchal rigidity or meningeal signs. I do not believe she has any recurrent infection at that site. The patient does however have a urinary tract infection and likely early pyelonephritis on the right. She is going to be placed on 7 days of ciprofloxacin. She does need to increase her fluid intake. Additionally she does have a mildly low potassium. She was given a dose of potassium here. She is to have the level rechecked with her primary care doctor in 2 to 3 weeks. ER warnings are given for any significant worsening. Blood and wound and urine cultures have been performed. Additionally the patient does have some significant hypertension here. I do not believe her symptoms are due to the elevated blood pressure. I do want her to record her blood pressure several times daily and take them to her primary care doctor in a few weeks.
[2020-10-20 23:37] VITALS: BP 187/128; O2SAT 96
== END 2020-10-20 23:40 | disposition home or self-care (01) ==
LOC: ER 21:40
DX: S31.109A Unspecified open wound of abdominal wall, unspecified quadrant without penetration into peritoneal cavity, initial encounter (principal); N30.00 Acute cystitis without hematuria; E87.6 Hypokalemia; R10.9 Unspecified abdominal pain; R93.0 Abnormal findings on diagnostic imaging of skull and head, not elsewhere classified; I10 Essential (primary) hypertension; Z86.73 Personal history of transient ischemic attack (TIA), and cerebral infarction without residual deficits; Z79.899 Other long term (current) drug therapy; Z88.8 Allergy status to other drugs, medicaments and biological substances; Z88.0 Allergy status to penicillin; Z88.5 Allergy status to narcotic agent; Z91.040 Latex allergy status; Z98.890 Other specified postprocedural states; X58.XXXA Exposure to other specified factors, initial encounter; Y92.9 Unspecified place or not applicable